=== PATIENT | male | born 1940 | race Caucasian/White ===

== ENCOUNTER → 2016-10-30 | Outpatient (CLI) | payer OTHER | LOC: BHFA 10:45 | PROVIDERS: ATTEND Internal Medicine Cardiovascular Disease | DX: I50.33 Acute on chronic diastolic (congestive) heart failure (principal); I48.91 Unspecified atrial fibrillation; R06.02 Shortness of breath ==

== ENCOUNTER 2016-12-20 09:50 | Day surgery (SDC) | payer OTHER ==
[2016-12-20] MEDS ORDERED: fentaNYL 100 MCG/2 ML INJ IVP ONE (09:55)
[2016-12-20] MEDS ORDERED: NS 500 ML IV ONE (09:55)
[2016-12-20] MEDS ORDERED: MIDAZOLAM 2 MG/2 ML VIAL IVP ONE (09:55)
[2016-12-20] MEDS ORDERED: PROPOFOL 200 MG/20 ML VIAL IVP ONE (09:55)
[2016-12-20] MEDS ORDERED: BENZOCAINE UNIT DOSE SPRAY HURRICAINE MM ONE (09:55)
--- NOTE | 2016-12-20 10:19 | CPEKG ---
Heart Rate: 122 RR Interval: 492 QRSD Interval: 84 QT Interval: 332 QTC Interval: 473 QRS [place]: 90 T Wave [place]: 40 EKG Severity - ABNORMAL ECG - EKG Impression: ATRIAL FIBRILLATION/FLUTTER-- New since March 18, 2015 EKG Impression: BORDERLINE RIGHT AXIS DEVIATION Electronically Signed By: Len Granados 20-Dec-2016 10:51:49
[2016-12-20 10:38] LABS: INR 1.19 (0.83-1.16); PROTIME(PATIENT) 15.1 SEC (12.0-15.0)
[2016-12-20 10:39] LABS: APTT 28.2 SEC (23.0-38.0)
[2016-12-20 10:45] LABS: ANION GAP 13 mEq/L (8-16); CALCIUM 8.6 mg/dL (8.5-10.4); CARBON DIOXIDE 25 mEq/l (22-31); CHLORIDE 100 mEq/L (97-110); CREATININE 1.2 mg/dL (0.7-1.3); GLOMERULAR FILTRATION RATE 59; GLUCOSE 136 mg/dL (70-100); POTASSIUM 4.6 mEq/L (3.5-5.2); SODIUM 138 mEq/L (134-144)
[2016-12-20] MEDS ORDERED: ATROPINE SULFATE 1 MG/10 ML SYR ONE (10:58)
[2016-12-20] MEDS ORDERED: PROPOFOL 200 MG/20 ML VIAL ONE (11:15)
[2016-12-20] MEDS ORDERED: SUCCINYLCHOLINE CHLORIDE*ANESTHESIA ONLY*200 MG/10 ML SYR IVP ONE (11:16)
[2016-12-20] MEDS ORDERED: LIDOCAINE 1% 5 ML SDV ONE (11:16)
--- NOTE | 2016-12-20 11:51 | CPEKG ---
Heart Rate: 89 RR Interval: 674 P-R Interval: 148 QRSD Interval: 84 QT Interval: 372 QTC Interval: 453 P [place]: -28 QRS [place]: 85 T Wave [place]: 37 EKG Severity - OTHERWISE NORMAL ECG - EKG Impression: SINUS RHYTHM EKG Impression: PACs EKG Impression: Sinus rhythm restored since December 20, 2016, 10:17 Electronically Signed By: Len Granados 20-Dec-2016 17:10:38
--- NOTE | 2016-12-20 16:09 | ECHO ---
[id number] + + [address] : : [facility] [address] : : [phone] + + Transesophageal Echocardiographic Report + ----+ :Name: MELLISSA BURNHAM HStudy Date: 12/20/2016 11:18 AM : : Hospital Admission Number: [id number] Location: C: :: 1940 Gender: Male : :Age: 76 yrs Race: WH : :Reason For Study: Eval LV Fx : :History: Pre Cardioversion : + ----+ Left Ventricle The left ventricular ejection fraction is normal. LVEF 60-65%. Right Ventricle The right ventricle is normal in size and function. Atria No left atrial mass or thrombus visualized. No thrombus is detected in the left atrial appendage. Mitral Valve The mitral valve is normal in structure and function. There is no mitral valve stenosis. There is trace mitral regurgitation. Tricuspid Valve The tricuspid valve is normal in structure and function. There is trace tricuspid regurgitation. Aortic Valve The aortic valve is normal in structure and function. The aortic valve is trileaflet. There is no aortic stenosis. There is no aortic insufficiency. Pulmonic Valve The pulmonic valve is normal in structure and function. There is no pulmonic valvular regurgitation. Vessels The aortic root is normal size. Pericardium There is no pericardial effusion. Conclusion 1)Normal LV size and systolic function with LVEF of 60-65% and normal wall motions. 2)Mild left atrial enlargement. 3)No clot or thrombus seen in any of four cardiac chambers or left atrial appendage. PW doppler in LIZET 50cm/sec. 4)Trivial to mild MR without MVP. 5)Trivial TR and PI 6)Negative IV bubble study for PFO or ASD. 7)Normal size ascending thoracic aorta (2.4cm) without dissection flap. Mild atheroma in aorta. Final Reading Physician: Srinath Robertson electronically signed on 12/20/2016 04:07 PM Ordering Physician: Srinath Robertson Performed By: Srinath Robertson
--- NOTE | 2016-12-20 22:10 | CPR ---
[f rep st] NONINVASIVE CARDIAC PROCEDURE REPORT DATE OF PROCEDURE: 12/20/2016 INDICATIONS: Atrial fibrillation with rapid ventricular response and acute on chronic diastolic hea rt failure and shortness of breath. PROCEDURE PERFORMED: Electrical cardioversion immediately after transesophageal echocardiogram. CONSENT: Signed. Risks, benefits, and alternatives discussed with patient and his . They wish ed to proceed. MEDICATIONS USED DURING PROCEDURE: Propofol 200 mg IV and IV lidocaine per Anesthesia with continuo us pulse oximetry and hemodynamic monitoring. TECHNICAL DIFFICULTIES: None. DESCRIPTION OF PROCEDURE: Immediately beforehand, a transesophageal echo demonstrated normal LV fun ction with no clots in the heart. He was initially in atrial fibrillation with a ventricular rate o f 115 beats per minute and a blood pressure of 120/70. With adequate sedation and biphasic AP pads, he received a single 250 joule shock, which converted him to sinus rhythm at 85 beats per minute wi th a post-cardioversion blood pressure of 104/76. He awoke from sedation with no new neurological d eficits. COMPLICATIONS: None. FINAL IMPRESSIONS: Successful cardioversion of atrial fibrillation to sinus rhythm with single 250 joule synchronized shock. /[id number]/MODL
== END 2016-12-20 13:31 | disposition home or self-care (01) ==
LOC: FCATH 09:50
PROVIDERS: ATTEND Internal Medicine Cardiovascular Disease
PROC: 5A2204Z Restoration of Cardiac Rhythm, Single (ICD-10-PCS; principal; 2016-12-20)
PROC: B246ZZ4 Ultrasonography of Right and Left Heart, Transesophageal (ICD-10-PCS; principal; 2016-12-20)
DX: I48.91 Unspecified atrial fibrillation (principal); I50.33 Acute on chronic diastolic (congestive) heart failure
CPT/HCPCS: J0330; J0461; J2704

== ENCOUNTER → 2016-12-21 | Outpatient (CLI) | payer OTHER | LOC: BHFA 10:45 | PROVIDERS: ATTEND Internal Medicine Cardiovascular Disease | DX: I50.32 Chronic diastolic (congestive) heart failure (principal); R00.2 Palpitations; I48.91 Unspecified atrial fibrillation ==

== ENCOUNTER → 2017-01-12 | Outpatient (CLI) | payer OTHER | LOC: BHFA 13:45 | PROVIDERS: ATTEND Internal Medicine Cardiovascular Disease | DX: I48.91 Unspecified atrial fibrillation (principal); I50.32 Chronic diastolic (congestive) heart failure; R53.83 Other fatigue; R06.02 Shortness of breath ==

== ENCOUNTER 2017-03-31 09:03 | Inpatient (IN) | payer OTHER ==
--- NOTE | 2017-03-31 09:12 | CPEKG ---
Heart Rate: 171 RR Interval: 351 QRSD Interval: 82 QT Interval: 300 QTC Interval: 506 QRS [place]: 96 T Wave [place]: 31 EKG Severity - ABNORMAL ECG - EKG Impression: ATRIAL FIBRILLATION WITH RAPID V-RATE-- New since December 20, 2016 EKG Impression: RIGHT AXIS DEVIATION EKG Impression: ST DEPRESSION, PROBABLY RATE RELATED Electronically Signed By: Len Granados 06-Apr-2017 10:58:13
[2017-03-31] MEDS ORDERED: NS 1,000 ML IV ONE ×2 (09:21→10:21)
[2017-03-31 09:25] LABS: ABSOLUTE NRBC COUNT 0.03 10^3/uL (0-0.01); ADD DIFF? YES; ADD MORPH? YES; ADD SCAN? NO; ATYPICAL LYMPHOCYTE FLAG 0 (0-99); FRAGMENT RBC FLAG 0 (0-99); HEMATOCRIT 38.1 % (40.0-51.0); LEFT SHIFT FLG 30 (0-99); LIPEMIA HEMOLYSIS FLAG 90 (0-99); MEAN CELL HEMOGLOBIN 46.2 pg (27.9-34.1); MEAN CELL HEMOGLOBIN CONCENTR. 36.7 g/dL (32.4-36.7); MEAN PLATELET VOLUME 9.8 fL (8.7-11.7); NRBC-AUTO% 0.2 % (0.0-0.2); PLATELET CLUMPS FLAG 10 (0-99); PLATELET COUNT 116 10^3/uL (150-400); RED BLOOD CELL COUNT 3.03 10^6/uL (4.40-6.38)
[2017-03-31 09:26] LABS: MEAN CELL VOLUME 125.7 fL (81.5-99.8)
[2017-03-31] MEDS ORDERED: MEROPENEM 1 GM in NS 100 ML IV ONE (09:28)
[2017-03-31] MEDS ORDERED: VANCOMYCIN 1 GM in NS 250 ML IV ONE (09:28)
[2017-03-31] MEDS ORDERED: KETAMINE 100 MG/10 ML SYR ONE ×2 (09:29→09:31)
[2017-03-31] MEDS ORDERED: methylPREDNISolone SOD SUCC 125 MG/2 ML VIAL ONE (09:34)
[2017-03-31] MEDS ORDERED: methylPREDNISolone SOD SUCC 125 MG/2 ML VIAL IVP ONE (09:34)
[2017-03-31 09:41] LABS: ALBUMIN 4.3 g/dL (3.5-5.0); BILIRUBIN,TOTAL 1.7 mg/dL (0.1-1.4); BILIRUBIN-CONJUGATED 0.7 mg/dL (0.0-0.5); CALCIUM 10.1 mg/dL (8.5-10.4); CREATININE 2.7 mg/dL (0.7-1.3); POTASSIUM 3.5 mEq/L (3.5-5.2); TOTAL PROTEIN 7.2 g/dL (6.3-8.2)
[2017-03-31 09:51] LABS: TROPONIN I 0.022 ng/mL (0.000-0.034)
[2017-03-31 09:55] LABS: MACROCYTES 2+; MICROCYTES 1+; PLATELET ESTIMATE DECREASED (ADEQ); POLYCHROMASIA 1+
[2017-03-31 09:56] LABS: GIANT PLATELETS PRESENT; LARGE PLATELETS PRESENT; TOXIC VACUOLIZATION PRESENT
[2017-03-31 10:06] LABS: INR 1.28 (0.83-1.16); PROTIME(PATIENT) 15.7 SEC (12.0-15.0)
[2017-03-31 10:07] LABS: APTT 33.7 SEC (23.0-38.0)
[2017-03-31] MEDS ORDERED: NOREPINEPHRINE/NS 4 MG/500 ML BAG IV ONE (10:17)
[2017-03-31] MEDS ORDERED: ERTAPENEM 1 GM VIAL ONE (10:37)
[2017-03-31] MEDS ORDERED: CODE BLUE RESUSCITATION 1 EA MISC ONE (11:41)
[2017-03-31] MEDS ORDERED: ROCURONIUM 100 MG/10 ML VIAL IVP ONE (11:41)
[2017-03-31] MEDS ORDERED: PROPOFOL/EMULSION 1,000 MG/100 ML BOTTLE IV ONE (11:48)
[2017-03-31] MEDS ORDERED: fentanYL/NACL/100 ML BAG IV ONE (11:49)
[2017-03-31] MEDS ORDERED: ETOMIDATE 40 MG/20 ML INJ IVP ONE (11:51)
[2017-03-31] MEDS ORDERED: ERTAPENEM 1 GM in NS 100 ML IV ONE (12:11)
--- NOTE | 2017-03-31 12:12 | EDPHY ---
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 Patient's notes that he has been taking increased diuretics and last 24 hours he has been complaining of feeling thirsty. Patient's notes that he had a fever when he woke at 3:00 a.m. this morning. He also had a fever 2 days ago was started on increased dose of prednisone by his specialist physician because of a concern of a flare of his vasculitis. Patient himself is unable to provide any specific history other than he feels weak. He complains of some shortness of breath but denies any chest pain. REVIEW OF SYSTEMS: Limited due to the critical nature of the patient's presentation Source: Family - Personal History Tetanus Vaccine Date: 2009 - Medical/Surgical History Hx Asthma: No Hx Chronic Respiratory Disease: No Hx Diabetes: No Hx Cardiac Disease: No Hx Renal Disease: No Hx Cirrhosis: No Hx Alcoholism: No Hx HIV/AIDS: No Hx Splenectomy or Spleen Trauma: No Other PMH: MDS Cancer, Moes surgery on left ear 2 weeks ago,cholecystectomy, sternal fx, neck pain, - Social History Smoking Status: Former smoker - Physical Exam Exam: General Appearance: Somnolent, pale, opens eyes to voice and answer some questions, ill appearing, tachypneic. Eyes: Pupils equal and round no pallor or injection. ENT, Mouth: Mucous membranes dry Respiratory: Increased effort, lungs are clear to auscultation. No wheezes, rales or rhonchi. Cardiovascular: Tachy, irregular, no murmurs, gallops or rubs appreciated Gastrointestinal: Abdomen is soft and mildly distended, no masses Neurological: Awake, answers questions appropriately, moves all extremities Skin: Warm and dry, no rashes. Musculoskeletal: No deformities or tenderness. Extremitie:s full range of motion, no edema, weak peripheral pulses Constitutional: Initial Vital Signs Temperature (C) 36.9 C 03/31/17 09:11 Heart Rate 176 H 10/21/17 09:11 Respiratory Rate 30 H 03/31/17 09:11 Blood Pressure 84/50 L 03/31/17 09:11 O2 Sat (%) 94 03/31/17 09:11 O2 Delivery Mode Ventilator O2 (L/minute) 60 Allergies/Adverse Reactions: lisinopril [From Zestril] Allergy (Severe, Verified 03/31/17 09:06) Swelling/neck,face,throat codeine Allergy (Verified 03/31/17 09:06) neck swelling minocycline Allergy (Verified 03/31/17 09:06) Home Medications: Medication Instructions Recorded Potassium Cl [Klor-Con 20 meq (*)] 20 meq PO BID 01/28/12 Terazosin HCl [Hytrin 5 MG (*)] 10 mg PO HS 01/28/12 Acetaminophen [Tylenol ES 500 mg 1,000 mg PO Q6 PRN 12/12/14 (*)] Levothyroxine [Synthroid 125 mcg 125 mcg PO HS 12/12/14 (*)] Ibuprofen [Motrin (*)] 800 mg PO Q8 PRN 12/28/14 Omeprazole Magnesium [Prilosec Otc] 20 mg PO DAILY 12/28/14 Aspirin [Aspirin 81mg (OTC)] 81 mg PO DAILY #30 tab 01/04/15 Eliquis 12/19/16 Metoprolol Tartrate 12/19/16 Prednisone 12/19/16 Spironolactone 12/19/16 Torsemide 12/19/16 Medical Decision Making - Diagnostics EKG Interpretation: Rapid AFib at a rate in the 170s without evidence of acute ischemia Imaging Results: Imaging Impressions Chest X-Ray 03/31/17 09:32 Impression: 1. Poor inspiratory phase without definite pneumonia or pulmonary edema. 2. Mediport catheter without pneumothorax. 3. Consider chest two views when the patient's medical condition permits. Imaging: I viewed and interpreted images myself Procedures: Procedure: Electrical cardioversion. The patient was electrically cardioverted for rapid atrial fibrillation with hypotension and confusion. The patient was on a continuous monitoring manager, with airway equipment at the bedside. The patient was sedated with IV ketamine. The patient was on continuous pulse oximetry. The cardioversion was attempted with 120 joules biphasic current. The cardioversion was not successful successful. Second attempt was made at 200 joules and the patient was converted to sinus tachycardia. The patient tolerated the procedure well with no complications. The procedure was performed by myself. Procedure 2.: Endotracheal intubation Indication for the procedure was hypoventilation. The patient was preoxygenated with 100% oxygen by face mask. The patient was sedated with etomidate 20 mg and paralyzed with rocuronium 100 mg. The patient was orally endotracheally intubated under direct visualization with a 8 ETT using the glide scope. Tracheal intubation was confirmed with misting on the tube; breath sounds were auscultated equally bilaterally; appropriate color change with [employer] End Tidal CO2 detector, capnography waveform is appropriate, oxygen saturation after procedure is 100%. The procedure was performed by myself. ED Course/Re-evaluation: 76-year-old man presents by family with weakness, hypotension and rapid atrial fibrillation with recent fever and heavy diuretic use. Patient was cardioverted after sedation foot with ketamine for unstable atrial fibrillation with return of sinus tachycardia on repeat ECG. I felt that atrial fibrillation was likely secondary to an underlying process such as dehydration and/or infection. Blood cultures x2 were obtained, lactate was sent off the patient was started on broad-spectrum IV antibiotics and stress dose steroids because of his chronic prednisone use. Labs are notable for an elevated lactate, elevated white blood cell count, elevated BUN and creatinine consistent with significant dehydration and volume depletion and low-sodium but normal potassium. Chest x-ray showed no evidence of pneumonia. We are unable to obtain urine from the patient due to multiple other critical needs. I discussed the case with Dr. Renard berg at [facility] who accepts the patient in transfer to intensive care unit. Because the patient's blood pressure remained somewhat unstable I discussed the case with Dr. Oakes in the emergency department and the plan was to transfer the patient there. The patient's blood pressure improved from the 60s to 80s but he remained hypotensive. After a 2 L normal saline bolus the patient had slight improvement in his blood pressure. However the patient was on end-tidal CO2 monitor and he had recurrent episodes of hypoventilation and drop in his end- tidal CO2 to less than 10 and his blood pressure dropped again into the 60s. Patient was therefore intubated for hypoventilation and airway protection and anticipation of deterioration of his condition. After intubation and 2 L of fluid the patient's blood pressure remained low when he was briefly started on norepinephrine drip through a peripheral line. Critical care transfer was arranged. While preparing for transfer the patient had episode of supraventricular tachycardia but his blood pressure had improved into the 113-118 range after 2.5 L of normal saline. Because of the SVT on the monitor we discontinued the norepinephrine and the patient converted back to sinus tachycardia and his blood pressure remained improved and stable. I discussed the patient's critical condition as well as his wishes regarding resuscitation with his family. The family did have a living will which stated the patient wanted everything done unless it was clear that he had a terminal condition or would be remained in a vegetative state. Given that the underlying cause of his deterioration today not completely clear and whether not this is reversible we went ahead and intubated. Patient was then transferred by critical care transfer to [facility] for ongoing care. Total critical care time was 95 minutes exclusive of procedures. - Data Points Laboratory Results: Laboratory Results 03/31/17 09:10 03/31/17 09:10 03/31/17 03/31/17 03/31/17 10:45 09:10 09:10 WBC RBC Hgb Hct MCV MCH MCHC RDW Plt Count MPV Neut % (Auto) Lymph % (Auto) [place] % (Auto) Eos % (Auto) Baso % (Auto) Nucleat RBC Rel Count Absolute Neuts (auto) Absolute Lymphs (auto) Absolute Monos (auto) Absolute Eos (auto) Absolute Basos (auto) Absolute Nucleated RBC Immature Gran % Seg Neutrophils % Band Neutrophils % Lymphocytes % Monocytes % Metamyelocytes % Immature Gran # Absolute Seg Neuts Absolute Band Neuts Absolute Lymphocytes Absolute Monocytes Absolute Metamyelocyte Toxic Vacuolation Platelet Estimate Large Platelets Giant Platelets Polychromasia Microcytic Cells Oval Macrocytes Smear Review By PT 15.7 SEC H SEC (12.0-15.0) INR 1.28 H (0.83-1.16) APTT 33.7 SEC SEC (23.0-38.0) VBG Lactic Acid 3.0 mmol/L H D mmol/L (0.7-2.1) Sodium 129 mEq/L L mEq/L (134-144) Potassium 3.5 mEq/L mEq/L (3.5-5.2) Chloride 82 mEq/L L mEq/L (97-110) Carbon Dioxide 28 mEq/l mEq/l (22-31) Anion Gap 19 mEq/L H mEq/L (8-16) BUN 65 mg/dL H mg/dL (7-23) Creatinine 2.7 mg/dL H mg/dL (0.7-1.3) Estimated GFR 23 Glucose 135 mg/dL H mg/dL (70-100) Calcium 10.1 mg/dL mg/dL (8.5-10.4) Total Bilirubin 1.7 mg/dL H mg/dL (0.1-1.4) Conjugated Bilirubin 0.7 mg/dL H mg/dL (0.0-0.5) Unconjugated Bilirubin 1.0 mg/dL mg/dL (0.0-1.1) AST 29 IU/L IU/L (17-59) ALT 45 IU/L IU/L (21-72) Alkaline Phosphatase 66 IU/L IU/L (38-126) Troponin I 0.022 ng/mL ng/mL (0.000-0.034) Total Protein 7.2 g/dL g/dL (6.3-8.2) Albumin 4.3 g/dL g/dL (3.5-5.0) 03/31/17 03/31/17 09:10 09:10 WBC 15.75 10^3/uL H 10^3/uL (3.80-9.50) RBC 3.03 10^6/uL L 10^6/uL (4.40-6.38) Hgb 14.0 g/dL g/dL (13.7-17.5) Hct 38.1 % L % (40.0-51.0) MCV 125.7 fL H fL (81.5-99.8) MCH 46.2 pg H pg (27.9-34.1) MCHC 36.7 g/dL g/dL (32.4-36.7) RDW 15.0 % % (11.5-15.2) Plt Count 116 10^3/uL L 10^3/uL (150-400) MPV 9.8 fL fL (8.7-11.7) Neut % (Auto) Not Reported Lymph % (Auto) Not Reported [place] % (Auto) Not Reported Eos % (Auto) Not Reported Baso % (Auto) Not Reported Nucleat RBC Rel Count 0.2 % % (0.0-0.2) Absolute Neuts (auto) Not Reported Absolute Lymphs (auto) Not Reported Absolute Monos (auto) Not Reported Absolute Eos (auto) Not Reported Absolute Basos (auto) Not Reported Absolute Nucleated RBC 0.03 10^3/uL H 10^3/uL (0-0.01) Immature Gran % Not Reported Seg Neutrophils % 22 % % Band Neutrophils % 65 % % Lymphocytes % 7 % % Monocytes % 3 % % Metamyelocytes % 3 % % Immature Gran # Not Reported Absolute Seg Neuts 3.5 K/MM3 K/MM3 (1.8-7) Absolute Band Neuts 10.2 K/MM3 H K/MM3 (0-0.7) Absolute Lymphocytes 1.1 K/mm3 K/mm3 (1.0-4.8) Absolute Monocytes 0.5 K/mm3 K/mm3 (0-0.8) Absolute Metamyelocyte 0.5 K/mm3 H K/mm3 (0-0) Toxic Vacuolation PRESENT H Platelet Estimate DECREASED L (ADEQ) Large Platelets PRESENT H Giant Platelets PRESENT H Polychromasia 1+ H Microcytic Cells 1+ H Oval Macrocytes 2+ H Smear Review By Pending PT INR APTT VBG Lactic Acid 5.7 mmol/L H mmol/L (0.7-2.1) Sodium Potassium Chloride Carbon Dioxide Anion Gap BUN Creatinine Estimated GFR Glucose Calcium Total Bilirubin Conjugated Bilirubin Unconjugated Bilirubin AST ALT Alkaline Phosphatase Troponin I Total Protein Albumin Medications Given: Discontinued Medications Etomidate (Etomidate) 20 mg IVP ONCE ONE Stop: 03/31/17 11:52 Last Admin: 03/31/17 10:27 Dose: 20 mg Sodium Chloride (Ns) 1,000 mls @ 0 mls/hr IV ONCE ONE; Wide Open PRN Reason: Protocol Stop: 03/31/17 09:22 Last Admin: 03/31/17 09:50 Dose: 1,000 mls Meropenem 1 gm/ Sodium (Chloride) 120 mls @ 120 mls/hr IV EDNOW ONE PRN Reason: Protocol Stop: 03/31/17 10:27 Last Admin: 03/31/17 10:15 Dose: Not Given Vancomycin HCl 1 gm/ Sodium (Chloride) 250 mls @ 250 mls/hr IV EDNOW ONE PRN Reason: Protocol Stop: 03/31/17 10:27 Last Admin: 10/21/17 09:53 Dose: 250 mls Sodium Chloride (Ns) 1,000 mls @ 3,000 mls/hr IV ONCE ONE Stop: 03/31/17 10:40 Last Admin: 03/31/17 09:50 Dose: 1,000 mls Methylprednisolone Sodium Succinate (Solu-Medrol) 125 mg IVP EDNOW ONE Stop: 03/31/17 09:35 Last Admin: 03/31/17 09:35 Dose: 125 mg Miscellaneous Medication (Code Blue Resuscitation) 1 ea MISC EDNOW ONE Stop: 03/31/17 11:42 Last Admin: 03/31/17 12:10 Dose: Not Given Rocuronium [place] (Zemuron) 100 mg IVP EDNOW ONE Stop: 03/31/17 11:42 Last Admin: 03/31/17 10:27 Dose: 100 mg Departure - Departure Referrals: Len Granados MD [Primary Care Provider] - As per Instructions
[2017-03-31] MEDS: fentaNYL/NACL 100 ML IV SCH ×2 (12:15→21:38)
[2017-03-31] MEDS ORDERED: KETAMINE 100 MG/10 ML SYR IVP ONE ×2 (12:15→12:23)
[2017-03-31] MEDS: PROPOFOL/EMULSION 100 ML IV SCH ×3 (12:15→21:38)
[2017-03-31] MEDS ORDERED: NS 1,000 ML IV SCH ×2 (12:30→16:00)
[2017-03-31] MEDS ORDERED: ONDANSETRON 4 MG/2 ML VIAL IVP PRN (12:38)
[2017-03-31 12:51] LABS: ABSOLUTE NRBC COUNT 0.02 10^3/uL (0-0.01); ADD DIFF? YES; ADD MORPH? YES; ADD SCAN? NO; ATYPICAL LYMPHOCYTE FLAG 0 (0-99); FRAGMENT RBC FLAG 0 (0-99); HEMOGLOBIN 10.4 g/dL (13.7-17.5); LEFT SHIFT FLG 80 (0-99); LIPEMIA HEMOLYSIS FLAG 90 (0-99); MEAN CELL HEMOGLOBIN 47.5 pg (27.9-34.1); MEAN CELL HEMOGLOBIN CONCENTR. 35.9 g/dL (32.4-36.7); MEAN PLATELET VOLUME 9.8 fL (8.7-11.7); NRBC-AUTO% 0.1 % (0.0-0.2); PLATELET CLUMPS FLAG 0 (0-99); PLATELET COUNT 81 10^3/uL (150-400); RED BLOOD CELL COUNT 2.19 10^6/uL (4.40-6.38); RED CELL DISTRIBUTION WIDTH 15.3 % (11.5-15.2)
[2017-03-31] MEDS ORDERED: DIGOXIN 100 MCG/ML AMP *PEDIATRIC IVP ONE (12:52)
[2017-03-31] MEDS ORDERED: AMIODARONE HCL 200 ML IV ONE (12:59)
[2017-03-31] MEDS ORDERED: AMIODARONE HCL 100 ML IV ONE (12:59)
[2017-03-31] MEDS ORDERED: DIGOXIN 500 MCG/2 ML AMP IVP ONE (13:00)
[2017-03-31 13:01] LABS: INR 1.5 (0.83-1.16); PROTIME(PATIENT) 18.1 SEC (12.0-15.0)
[2017-03-31 13:02] LABS: APTT 41.6 SEC (23.0-38.0)
[2017-03-31 13:09] LABS: MEAN CELL VOLUME 132.4 fL (81.5-99.8)
[2017-03-31 13:10] LABS: ALANINE AMINOTRANSFERASE 38 IU/L (21-72); ALBUMIN 2.7 g/dL (3.5-5.0); ALKALINE PHOSPHATASE 43 IU/L (38-126); ANION GAP 13 mEq/L (8-16); ASPARTATE AMINOTRANSFERASE 28 IU/L (17-59); BILIRUBIN,TOTAL 1.2 mg/dL (0.1-1.4); BILIRUBIN-CONJUGATED 0.6 mg/dL (0.0-0.5); BILIRUBIN-UNCONJUGATED 0.6 mg/dL (0.0-1.1); CALCIUM 7.3 mg/dL (8.5-10.4); CARBON DIOXIDE 23 mEq/l (22-31); CHLORIDE 96 mEq/L (97-110); CREATININE 2.3 mg/dL (0.7-1.3); GLOMERULAR FILTRATION RATE 28; GLUCOSE 159 mg/dL (70-100); SODIUM 132 mEq/L (134-144); TOTAL PROTEIN 4.9 g/dL (6.3-8.2)
--- NOTE | 2017-03-31 13:32 | GCON ---
[f rep st] CONSULTATION DATE OF CONSULTATION: 03/31/2017 REASON FOR CONSULTATION: Opinion regarding acute kidney injury in a patient with known stage 3 chron ic kidney disease. HISTORY OF PRESENT ILLNESS: The patient is a 76-year-old gentleman with multiple medical problems, i ncluding myelodysplastic syndrome (CML), as well as chronic vasculitis for which he is on prednisone 10 mg daily. He also has diastolic congestive heart failure and paroxysmal atrial fibrillation. The patient was in his usual state of health on Sunday, however, on began having some fevers . This is a symptom of his vasculitis, and he doubled his prednisone from 10 mg to 20 mg daily, and cut back on his prednisone to 15 mg yesterday. Today, was rolling around, and not making much sense at home and was taken to the emergency department, where he was noted to be in rapid atrial fibrillat ion and acute kidney injury. The patient was intubated, sedated, given Solu-Medrol 125 mg, started o n intravenous pressors, given a gram of vancomycin, 2 L of IV fluids, and also given Invanz 1 gram x1 . The patient was life flighted to [facility] for further evaluation and management. The patient is intubated and sedated, and is not able to give a history, the history comes from his . Apparently, over the course of the past several weeks, the patient has had increasing abdomin al girth. His Aldactone and furosemide were doubled, and he was started on metolazone as well. He h ad 1 dose on Sunday and another dose today. PAST MEDICAL HISTORY: 1. Stage 3 chronic kidney disease with a baseline creatinine between 1.2 and 1.3. 2. Myelodysplastic syndrome (CML). 3. Vasculitis, follows with Rheumatology. 4. Hypothyroidism. 5. Paroxysmal atrial fibrillation. 6. History of BPH. 7. Depression. 8. Hyperlipidemia. 9. History of hypertension. 10. History of a fractured sternum. 11. Gastroesophageal reflux disease. 12. Diastolic congestive heart failure. 13. History of knee surgery. ALLERGIES: He gets angioedema with lisinopril. He is also allergic to minocycline and codeine. CURRENT MEDICATIONS: Include Invanz 1 gram x1. He did receive Solu-Medrol 125 mg x1, as well as pro pofol, vancomycin 1 g IV x1, and he has had 3 L of normal saline intravenously. FAMILY HISTORY: Positive for diabetes. Negative for renal failure. SOCIAL HISTORY: He is . His son and are at the bedside. He is a former tobacco user. Does not use IV recreational drugs or alcohol. REVIEW OF SYSTEMS: Is not obtainable from the patient. PHYSICAL EXAMINATION: VITAL SIGNS: Systolic blood pressures ranging from 60-90/50s, when he is in a trial fibrillation, when his rate is slowed or he is in sinus rhythm his blood pressures tend to be i n the 140 range, when he is in sinus rhythm (he was converted at the emergency department). He did b egin to make some urine. Pulse currently in the 120s to 150s, respirations 15, temperature 36.9. GE NERAL: He is sedated on the ventilator. HEART: Tachycardic, irregular. No rub. CHEST: Has an In fuse-A-Port in his right chest. LUNGS: Coarse breath sounds bilaterally. No rhonchi or wheezes. A BDOMEN: Obese. Bowel sounds are quiet, nontender, mildly distended. EXTREMITIES: No cyanosis, clu bbing, or edema. NEUROLOGIC: No asterixis. SKIN: He has changes of arterial and venous insufficie ncy in his lower extremities bilaterally. LYMPH: No palpable lymphadenopathy. MUSCULOSKELETAL: No effusions. LABORATORY: Serum sodium is 129, potassium 3.5, chloride 82, CO2 28, BUN 65, creatinine 2.7, glucose 135, AST 29, albumin 4.3, troponin 0.022. Lactic acid of 3. WBC 15.8, hemoglobin 14, hematocrit 38 , platelet count 116,000. On 03/26/2017, his serum creatinine is 1.3. In December of 2016, his serum cr eatinine was 1.2. Transesophageal echocardiogram done 01/04/2017, showed his ejection fraction to be 60% to 65%, with a normal right ventricle. Trace mitral regurgitation. Aortic valve, pulmonic valve, and tricuspid va lve were essentially normal. He was converted from atrial fibrillation to normal sinus rhythm with a single shock of 250 joules on 12/20/2016, his DONALD was followup after his cardioversion. IMPRESSION: 1. Acute kidney injury, likely due to hypotension. 2. Hypotension, likely due to cardiovascular instability, including rapid atrial fibrillation. 3. Rapid atrial fibrillation with pulses in the 150s range. 4. Chronic kidney disease stage 3, with a baseline creatinine between 1.2 and 1.3. 5. History of vasculitis. 6. History of increasing abdominal girth with recent doubling of his Aldactone and furosemide, with the addition of metolazone. 7. Hyponatremia. I suspect this is due to his metolazone therapy. RECOMMENDATIONS: 1. There are no urgent or emergent dialysis needs at this time. The patient is on Eliquis for his h istory of atrial fibrillation. He also has a right-sided [id number] that has been in for a couple of years. I have counseled the patient's family regarding the possible need for renal replacement t herapy. I have counseled them regarding renal replacement therapy options, including hemodialysis, a s well as continuous renal replacement therapy. I have explained to them the difference and all ques tions were answered to their satisfaction. Were he to require renal replacement therapy, they would be willing to give that a try. 2. I think we need to get Cardiology involved, to see if we can get him out of atrial fibrillation, as his hemodynamics are much more unstable when he is in atrial fibrillation, then when he is in sinu s rhythm. 3. When he is in sinus rhythm, his blood pressure is actually quite good and he makes some urine, we may be able to avoid renal replacement therapy. Thank you for allowing me to participate in the care of your patient. If there is any questions, ple ase do not hesitate to contact us. We will be following along with you. /[id number]/MODL
[2017-03-31 13:51] LABS: ALBUMIN 2.5 g/dL (3.5-5.0); ANION GAP 15 mEq/L (8-16); CALCIUM 7.5 mg/dL (8.5-10.4); CARBON DIOXIDE 23 mEq/l (22-31); CHLORIDE 96 mEq/L (97-110); CREATININE 2.3 mg/dL (0.7-1.3); GLOMERULAR FILTRATION RATE 28; GLUCOSE 161 mg/dL (70-100); POTASSIUM 3.1 mEq/L (3.5-5.2); SODIUM 134 mEq/L (134-144)
[2017-03-31] MEDS ORDERED: ALBUMIN 5% 500 ML IV ONE (13:55)
[2017-03-31] MEDS ORDERED: VASOPRESSIN/DEXTROSE 250 ML IV SCH ×2 (14:00)
[2017-03-31] MEDS ORDERED: PROPOFOL/EMULSION 100 ML IV SCH (14:02)
[2017-03-31] MEDS ORDERED: fentaNYL/NACL 100 ML IV SCH (14:02)
[2017-03-31] MEDS ORDERED: fentaNYL 100 MCG/2 ML INJ IVP PRN (14:02)
[2017-03-31 14:06] LABS: PLATELET ESTIMATE DECREASED (ADEQ)
--- NOTE | 2017-03-31 14:22 | GCON ---
[f rep st] CONSULTATION CARDIOLOGY CONSULTATION DATE OF CONSULTATION: 03/31/2017 [employer]OVE SUPERINTENDENT: Diana Robertson MD ONCOLOGIST: Dennis Alfredo MD CHIEF COMPLAINT: Atrial fibrillation, hypotension. HISTORY OF PRESENT ILLNESS: We were asked by Dr. Lao to visit with the patient. The patient is a 76-year-old male with a history of heart failure with preserved ejection fraction, paroxysmal atrial fibrillation on Eliquis therapy, sleep apnea, vasculitis, and myelodysplastic syndrome. The history is from chart review and discussion with the family. As the patient is currently intubated and sedat ed. The patient was seen by Dr. Robertson in [facility] on March 22. At that time, the patient was complaining of dyspnea, increasing abdominal girth, and weight gain. Therefore, his torsemide w as increased to 100 mg daily, and his Aldactone was increased to 50 mg daily. On March 26, he hayward d blood work showing a BNP of 55, BUN 38, creatinine 1.3. He was then seen by Aliyah Cordova PA-C on 03/28 with little change in his dyspnea and no reported weight loss. Therefore, metolazone was adde d to his diuretic regimen, to be taken 3 times per week. Also, his steroids were recently increased by his instrument maintenance supervisor for vasculitis flare. The patient was brought to the emergency department by his this morning due to somnolence, fever , and tachycardia. He was found to be hypotensive to the 80s and in atrial fibrillation with ventric ular rates as high as 176 beats per minute. He was cardioverted to sinus tachycardia in the emergenc y department and intubated for airway protection. He was briefly on norepinephrine, but then this wa s discontinued. He was also found to be in acute renal failure with a creatinine of 2.7. He was giv en broad-spectrum antibiotics. He was transferred to [facility] ICU for further evalua tion and management. At the [facility] emergency department, he was also given stress dose steroids and broa d-spectrum antibiotics, and 4 L of fluid were given in the emergency department. Upon my evaluation, he is arousable, but intubated and cannot answer questions. REVIEW OF SYSTEMS: Currently unable, as the patient is intubated and sedated. PAST MEDICAL HISTORY: 1. Heart failure with preserved ejection fraction. 2. Paroxysmal atrial fibrillation. 3. Sleep apnea. 4. Obesity. 5. Dyslipidemia. 6. Vasculitis with cutaneous manifestations, followed by Dr. Patel. 7. Hypertension. 8. Myelodysplastic syndrome, followed by Dr. Alfredo. 9. BPH. 10. Depression. 11. GERD. 12. Hypothyroidism. 13. History of basal cell carcinoma. PAST SURGICAL HISTORY: Appendectomy, hernia repair, and knee surgery. OUTPATIENT MEDICATIONS: Prednisone, recently increased, Eliquis 5 mg twice daily, Synthroid 125 mcg daily, Ativan p.r.n., magnesium oxide, metolazone 2.5 mg Sunday, Sunday, and Sunday, metoprolol ta rtrate 25 mg twice daily, spironolactone 50 mg daily, torsemide 100 mg daily, aspirin 81 mg daily, an d Prilosec 20 mg daily. SOCIAL HISTORY: The patient is . He is a former tobacco user. FAMILY HISTORY: Not applicable to the current case. PHYSICAL EXAM: VITAL SIGNS: Blood pressure has ranged from 60/45 to 140/75, heart rate in the 140s, respiratory rate is 18, he is on 60% FiO2 on the ventilator. Rhythm is currently atrial fibrillatio n with rapid ventricular response. GENERAL: He is an obese, older male, intubated. CARDIOVASCULAR: Irregular regular rhythm without S3 or murmur. LUNGS: Rhonchi anteriorly and laterally. ABDOMEN: Soft and nontender without obvious hepatosplenomegaly. EXTREMITIES: Warm and well perfused. INTE GUMENT: His skin is tenting. EXTREMITIES: There is no edema. Intact distal pulses. LABORATORY DATA: White count 28.45, hematocrit 29, and platelets are 81. INR 1.5. Venous lactic ac id was 5.7. Sodium 132, potassium 3, chloride 96, bicarb 13, BUN 57, creatinine 2.3, glucose 159. L FTs are normal except for a slightly elevated conjugated bilirubin at 0.6, total protein 4.9. Tropon in is negative. TSH was last checked in 2014 and was normal. BNP is pending. Blood cultures are pe nding. EKG reviewed by me shows AFib with rapid ventricular response. No ischemic changes. Chest x-ray x2 reviewed by me pre and post intubation revealed left lower lobe opacity. Last nuclear stress test was in our office in 2011, which showed normal myocardial perfusion and no c ardiac ischemia. Last DONALD was in December of 2016 with normal left ventricular ejection fraction, no int racardiac thrombus, and 1+ mitral regurgitation. RV is normal size and systolic function. ASSESSMENT AND PLAN: A 76-year-old male with a history of heart failure with preserved ejection frac tion, sleep apnea, paroxysmal atrial fibrillation, vasculitis, myelodysplasia. He is now admitted to the ICU with shock that seems most consistent with hypovolemia. He has acute renal failure and rapi d atrial fibrillation. His atrial fibrillation is contributing to his hypotension. 1. Hypotension: As above, appears to be related to hypovolemia and atrial fibrillation. We have st arted amiodarone. If he does not convert to normal sinus rhythm in the next 30 minutes or so, we maxx l repeat cardioversion. Continue IV fluids. Hold diuretics. He is on broad-spectrum antibiotics, a s infection is on the differential, and he is immunocompromised due to his chronic steroid use. He h as been given stress dose steroids. 2. Atrial fibrillation: Attempt sabianism of sinus rhythm as detailed per #1. Continue Eliquis i n the absence of significant bleeding. 3. History of heart failure with preserved ejection fraction: He appears quite clinically dry. Jany ck BNP. We will continue IV fluids. 4. History of vasculitis: Followed by Dr. Patel. Recent increase in steroids. 5. Myelodysplastic syndrome: Followed by Dr. Alfredo. His white count is quite high today, possibl y due to steroids versus infection, or both. 6. Acute renal failure: Related to hypovolemia. Appreciate Dr. Liao' consult. Hopefully, this will improve with fluid resuscitation and sabianism of sinus rhythm. Thank you for this consult. We will follow with you. BILLING: Greater than 45 minutes was spent in chart review, direct patient contact, discussion with other physicians. /[id number]/MODL
[2017-03-31 14:35] LABS: MACROCYTES 1+; MICROCYTES 1+; POLYCHROMASIA 1+; SCHISTOCYTES 1+; TOXIC VACUOLIZATION PRESENT
[2017-03-31] MEDS ORDERED: ALTEPLASE 2 MG VIAL IVP PRN (14:50)
--- NOTE | 2017-03-31 15:08 | CPEKG ---
Heart Rate: 127 RR Interval: 472 QRSD Interval: 88 QT Interval: 332 QTC Interval: 483 QRS [place]: 89 T Wave [place]: 35 EKG Severity - ABNORMAL ECG - EKG Impression: ATRIAL FIBRILLATION EKG Impression: BORDERLINE RIGHT AXIS DEVIATION EKG Impression: LOW VOLTAGE THROUGHOUT EKG Impression: BORDERLINE PROLONGED QT INTERVAL Electronically Signed By: Minor Jimenez 31-Mar-2017 19:29:09
[2017-03-31] MEDS ORDERED: MIDAZOLAM 2 MG/2 ML VIAL ONE (15:37)
--- NOTE | 2017-03-31 15:41 | PDHPUP ---
History & Physical Update H&P update statement: This history and physical update is based on an assessment of the patient which was completed after admission or registration (within 24 hours), but prior to the surgery/procedure. H&P update: H&P reviewed & patient examined, no change in patient's condition since H&P completed
--- NOTE | 2017-03-31 15:48 | PDPROPOC ---
Sedation Plan of Care ASA Classification: ASA 3 Planned drugs: midazolam, other (propofol per ICU) Mallampati Reference Image: Patient passed 3-3-2 rule?: No (pt intubated. Sedation per ICU)
--- NOTE | 2017-03-31 16:00 | PDTEE1 ---
DONALD Cardioversion Procedure Procedure: electrical cardioversion Indications: atrial fibrillation Consent: signed and in chart Anticoagulation: eliquis Procedural Details: Pads were placed in anterior-posterior position. DONALD was not performed as he has been taking Eliquis without fail. Synchronized cardioversion attempt #2: 200J Results: normal sinus rhythm Conclusions: successful cardioversion Patient Problems: Problems Problem Status Onset Fever Acute Myelodysplastic syndrome Acute
--- NOTE | 2017-03-31 16:03 | GCON ---
[f rep st] CONSULTATION PULMONARY CRITICAL CARE CONSULTATION. DATE OF CONSULTATION: 03/31/2017 REASON FOR CONSULTATION: Intensive care unit evaluation and management of acute respiratory failure, hypotension, possible sepsis, cardiac arrhythmias, and acute renal failure. HISTORY: The patient is a 76-year-old gentleman with multiple medical problems. He presented to the emergency department at [facility] today in distress. This developed at home. He arrived at [facility] in rapid atrial fibrillation. He was intubated. He was hypotensive and was started on pressors. He was give n Invanz and vancomycin as well as Solu-Medrol. He was subsequently transferred to [facility] as a direct admission to the intensive care unit by helicopter. 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 On arrival in the intensive care unit he was intubated but responsive. He was started on fentanyl an d propofol. Levophed was continued and vasopressin eventually added. He was found to be fluid respo nsive by NICOM. He has been given approximately 4 L of fluid. Blood cultures were obtained at [facility] t his morning, another obtained here. From a cardiac standpoint he has had a normal echo recently. He does have a history of paroxysmal at rial fibrillation. He is followed at [facility]. He also has a history of vasculitis, with inter mittent fevers. He apparently was febrile at home earlier today prior to his presentation. He has o ther multiple medical problems, as outlined below. PAST MEDICAL HISTORY: Remarkable for CML/myelodysplastic disease, vasculitis, systemic hypertension, hyperlipidemia, depression, chronic renal insufficiency with creatinines of approximately 1.3, and g astroesophageal reflux disease. HOME MEDICATIONS: Ranitidine, Demadex, terazosin, metolazone, p.r.n. lorazepam, prednisone at 10 mg per day, spironolactone, metoprolol, levothyroxine, baby aspirin, and Eliquis. SOCIAL HISTORY: The patient is , with a very supportive family. He smoked cigarettes in the past, but quit a number of years ago. Significant alcohol is negative. FAMILY HISTORY: Unobtainable. REVIEW OF SYSTEMS: Unobtainable. PHYSICAL EXAMINATION: GENERAL: Reveals an elderly gentleman who is sedated, on the ventilator. He is in no acute distress. VITAL SIGNS: Blood pressure has been labile, between 60/45 and 140/75. He art rate currently is 112 with atrial fibrillation on the monitor. Respiratory rate is 20. He is ov erbreathing the ventilator. He is on 60% FiO2 with saturations of 96%. He is afebrile. HEENT: Rem arkable for an oroendotracheal tube and NG tube being in place. Pupils appear equal. NECK: Unremar kable for edema, cords, or tenderness. There is no obvious jugular venous distention; however, this is difficult to estimate. CHEST: Clear anteriorly. Breath sounds are diminished at the bases. The re are no rhonchi, no secretions. There are no wheezes, no rales or evidence of consolidation. HEAR T: Tachycardic and irregular consistent with atrial fibrillation. Heart tones are distant. . ABDO MEN: Soft and does not appear to be tender. Bowel sounds are present but diminished. GENITOURINARY : A Pickard catheter is in place. Urine output is present but is low. EXTREMITIES: Are unremarkable for edema. There are no obvious cords. NEUROLOGIC: Nonfocal. Cognition appears to be intact. DATABASE: Chest x-ray shows lines and tubes to be in acceptable position. There is a retrocardiac i nfiltrate and/or atelectasis with possible effusion at the left base. Arterial blood gas is pending. Current venous lactate is 2.9, down from 5.7 on admission. White blood cell count is 28,000, hemat ocrit 29, with a platelet count of 81,000. PT is 18 with an INR of 1.5. PTT is 41. Sodium is 134, potassium 3.1, CO2 23, with an anion gap of 15. BUN is 59 with a creatinine of 2.3. Glucose is 161, calcium 7.5, bilirubin. 1.2 with normal liver function studies. BNP is 651, albumin 2.5. TSH is no rmal. Urinalysis has not yet been obtained. ASSESSMENT: 1. Hypotension, possible sepsis. Source of infection is unclear; however, he meets all criteria for sepsis and is on the sepsis protocol. However, hypotension and his presentation, elevated lactate, etc. may all be secondary to atrial fibrillation and associated cardiac hypotension. He is being vandana ated with broad-spectrum antibiotics, including ertapenem and vancomycin. These will be continued. He is on pressors. Currently he is requiring both Levophed as well as vasopressin. He has been star zhen on amiodarone and has been given digoxin. 2. Acute respiratory failure. He was intubated at [facility] and is on the ventilator, currently appears s table. There are no infiltrates, no evidence of pneumonia or pulmonary edema. Appropriate ventilato ry support will be maintained. An arterial blood gas is pending at this time. 3. Atrial fibrillation, with a rapid ventricular response. He is on amiodarone and digoxin. He is being followed by Cardiology. Cardioversion is being considered. 4. Acute renal failure. This may all be related to recent aggressive outpatient diuresis. He is cl early volume depleted and is fluid responsive. He has received 3-4 L of intravenous fluids/crystallo id currently. 500 of albumin will be given. CVP will be monitored when a central line is placed. 5. History of vasculitis. Etiology unclear. Apparently associated with intermittent fevers. He is on chronic steroid therapy. He received Solu-Medrol at [facility]. He will be placed on stress steroid co verage for now. 6. History of myelodysplastic syndrome, hypertension, and other medical problems. Currently stable. These issues will be followed. PLAN AND RECOMMENDATIONS: The patient will be aggressively supported. Appropriate ventilatory suppo rt will be maintained. Arterial blood gases will be awaited. Chest x-ray will be followed. Antibio tics will be continued. Fluids will be continued per the sepsis protocol and guided by CVP. A PICC line will be requested as attempts at a central line have so far been unsuccessful. Pressors, Levoph ed and vasopressin, will be continued as needed and weaned when possible. Cardiology and Renal will continue to follow the patient. Cardioversion may be needed per Dr. Tang. Further plans and recommendations will be made based on his progress over the next 12-24 hours. /[id number]/MODL
[2017-03-31] MEDS ORDERED: POTASSIUM Cl (KCl) 50 ML IV ONE (16:06)
[2017-03-31] MEDS ORDERED: MIDAZOLAM 2 MG/2 ML VIAL IVP ONE (16:06)
--- NOTE | 2017-03-31 16:10 | CPEKG ---
Heart Rate: 78 RR Interval: 769 P-R Interval: 180 QRSD Interval: 90 QT Interval: 384 QTC Interval: 438 P [place]: 15 QRS [place]: 85 T Wave [place]: 42 EKG Severity - BORDERLINE ECG - EKG Impression: SINUS RHYTHM EKG Impression: ATRIAL PREMATURE COMPLEX EKG Impression: BORDERLINE RIGHT AXIS DEVIATION EKG Impression: LOW VOLTAGE IN FRONTAL LEADS Electronically Signed By: Minor Jimenez 31-Mar-2017 19:28:55
[2017-03-31] MEDS: APIXABAN 5 MG TAB PO SCH ×2 (16:14→20:19)
[2017-03-31] MEDS ORDERED: POTASSIUM Cl (KCl) 10 MEQ/100 ML BAG IV ONE (16:27)
[2017-03-31] MEDS: POTASSIUM Cl (KCl) 100 ML IV SCH ×2 (16:35→17:26)
[2017-03-31] MEDS: NOREPINEPHRINE/NS 500 ML IV SCH ×2 (17:06→20:27)
[2017-03-31 17:47] LABS: COLOR YELLOW; LEUKOCYTE ESTERASE,URINE NEGATIVE (NEGATIVE); NITRITE,URINE NEGATIVE (NEGATIVE)
[2017-03-31 18:20] LABS: MIXED VENOUS O2 SATURATION 85 % (65-75)
[2017-03-31] MEDS ORDERED: PHENYLEPHRINE HCL 50 MG in NS 250 ML IV SCH (18:30)
[2017-03-31 18:35] LABS: ALBUMIN 3.2 g/dL (3.5-5.0); ANION GAP 18 mEq/L (8-16); CALCIUM 7.3 mg/dL (8.5-10.4); CARBON DIOXIDE 16 mEq/l (22-31); CHLORIDE 95 mEq/L (97-110); GLOMERULAR FILTRATION RATE 33; GLUCOSE 298 mg/dL (70-100); POTASSIUM 5.8 mEq/L (3.5-5.2); SODIUM 129 mEq/L (134-144)
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
[2017-03-31 18:57] LABS: BICARBONATE 15 mEq/L (22-26); MEASURED OXYGEN SATURATION 97 % (92-95); O2 CONCENTRATIION 40 % (0-100); P/F RATIO 290 RATIO; PATIENT RATE 17; PCO2 33 mmHg (34-38); PO2 116 mmHg (65-75); TCO2 16 mEq/L (23-27)
[2017-03-31 18:58] LABS: PRESSURE SUPPORT 7; SIMV YES
--- NOTE | 2017-03-31 19:04 | PDMN ---
Medical Necessity Medical necessity: C/M review: est. > 2 MN LOS for eval and TX of acute septic shock, uncontrolled. rapid paroxysmal atrial fibrillation, acute hypotension, acute renal failure, elevated bilirubin, hyponatremia, requiring emergent intubation in ED, cardioversion, ongoing mechanical ventilation, IV vasopressors , multiple IV medications in ICU, comorbid imnune deficiency due to myelodysplastic syndrome, chronic kidney disease, chronic vasculitis, obstructive sleep apnea, chronic pulmonary hypertension, chronic leg edema, depression per H/P.
[2017-03-31] MEDS ORDERED: SODIUM BICARBONATE 150 MEQ in D5W 1,000 ML IV SCH (19:30)
[2017-03-31] MEDS ORDERED: AMIODARONE HCL 540 MG in D5W 300 ML IV ONE (19:30)
[2017-03-31] MEDS ORDERED: NA BICARBONATE 50 MEQ/50 ML VIAL IV ONE (20:00)
[2017-03-31 20:50] LABS: POTASSIUM 6.1 mEq/L (3.5-5.2)
--- NOTE | 2017-03-31 21:04 | GPN ---
[f rep st] PROCEDURE NOTE DATE OF PROCEDURE: 03/31/2017 PROCEDURE: Central line placement. INDICATION: Venous access in a patient with hypotension and multiorgan failure. DESCRIPTION OF PROCEDURE: The procedure was done in the patient's room in the intensive care unit. Informed consent was obtained from the patient's . A time-out was performed prior to the procedu re. Appropriate sterile techniques were used throughout per protocols. A central line placement was attempted via the left subclavian vein. After 1% lidocaine local anesth esia, the central line needle was placed underneath the clavicle. On a number of occasions, signific ant blood return was encountered. However, on advancing the wire through the needle, the vein would apparently be pushed away, and it could not be cannulated. After several unsuccessful attempts, the procedure was abandoned secondary to the increased risk of bleeding due to Eliquis anticoagulation. A PICC line will be requested. The estimated blood loss was approximately 15 cc. A chest x-ray to r ule out a pneumothorax is pending at the time of this dictation. IMPRESSION: Unsuccessful central line attempt. A PICC line has been requested. /[id number]/MODL
[2017-03-31] MEDS: HYDROCORTISONE 100 MG/2 ML VIAL IVP SCH (21:38)
[2017-03-31] MEDS ORDERED: FUROSEMIDE 40 MG/4 ML VIAL IVP ONE (22:15)
[2017-03-31] MEDS ORDERED: SODIUM POLY SULF 15 GM/60 ML BOTTLE TUBE ONE (22:15)
[2017-04-01 01:54] LABS: POTASSIUM 4.7 mEq/L (3.5-5.2)
[2017-04-01] MEDS: fentaNYL/NACL 100 ML IV SCH ×2 (03:00→10:29)
[2017-04-01] MEDS: PROPOFOL/EMULSION 100 ML IV SCH (04:30)
[2017-04-01 04:38] LABS: ABSOLUTE NRBC COUNT 0.02 10^3/uL (0-0.01); ADD DIFF? YES; ADD MORPH? YES; ATYPICAL LYMPHOCYTE FLAG 0 (0-99); FRAGMENT RBC FLAG 0 (0-99); HEMATOCRIT 28.9 % (40.0-51.0); HEMOGLOBIN 10.4 g/dL (13.7-17.5); LEFT SHIFT FLG 60 (0-99); LIPEMIA HEMOLYSIS FLAG 90 (0-99); MEAN CELL HEMOGLOBIN 46.8 pg (27.9-34.1); MEAN PLATELET VOLUME 9.9 fL (8.7-11.7); NRBC-AUTO% 0.1 % (0.0-0.2); PLATELET CLUMPS FLAG 10 (0-99); PLATELET COUNT 83 10^3/uL (150-400); RED BLOOD CELL COUNT 2.22 10^6/uL (4.40-6.38); RED CELL DISTRIBUTION WIDTH 15.8 % (11.5-15.2)
[2017-04-01 04:51] LABS: ALBUMIN 2.8 g/dL (3.5-5.0); ALKALINE PHOSPHATASE 44 IU/L (38-126); ANION GAP 13 mEq/L (8-16); BILIRUBIN,TOTAL 2.1 mg/dL (0.1-1.4); CALCIUM 7.2 mg/dL (8.5-10.4); CARBON DIOXIDE 27 mEq/l (22-31); CHLORIDE 91 mEq/L (97-110); CREATININE 1.5 mg/dL (0.7-1.3); GLOMERULAR FILTRATION RATE 46; GLUCOSE 377 mg/dL (70-100); POTASSIUM 4.5 mEq/L (3.5-5.2); SODIUM 131 mEq/L (134-144); TOTAL PROTEIN 4.8 g/dL (6.3-8.2)
[2017-04-01 05:10] LABS: ADD SCAN? NO; MEAN CELL VOLUME 130.2 fL (81.5-99.8)
[2017-04-01 05:17] LABS: BILIRUBIN-CONJUGATED 1.2 mg/dL (0.0-0.5); BILIRUBIN-UNCONJUGATED 0.9 mg/dL (0.0-1.1)
[2017-04-01 05:19] LABS: ALANINE AMINOTRANSFERASE 1421 IU/L (21-72)
[2017-04-01 05:39] LABS: TOXIC GRANULATION PRESENT; TOXIC VACUOLIZATION PRESENT
[2017-04-01 05:40] LABS: MACROCYTES 2+; PLATELET ESTIMATE DECREASED (ADEQ)
[2017-04-01 05:41] LABS: ASPARTATE AMINOTRANSFERASE 2432 IU/L (17-59)
[2017-04-01 05:52] LABS: BASE EXCESS -1.5 mEq/L (-2.5-2.5); BICARBONATE 23 mEq/L (22-26); MEASURED OXYGEN SATURATION 98 % (92-95); PCO2 42 mmHg (34-38); PO2 119 mmHg (65-75); TCO2 25 mEq/L (23-27)
[2017-04-01 05:54] LABS: O2 CONCENTRATIION 40 % (0-100); P/F RATIO 298 RATIO; PATIENT RATE 16; SIMV YES
[2017-04-01 05:55] LABS: PRESSURE SUPPORT 7
[2017-04-01] MEDS: HYDROCORTISONE 100 MG/2 ML VIAL IVP SCH ×3 (06:25→22:32)
--- NOTE | 2017-04-01 08:08 | HOSPPROG ---
Hospitalist Progress Note Assessment/Plan: DIAGNOSES: -acute septic shock with multi system organ failure and requiring multiple pressor support -acute renal failure -acute shock liver -acute respiratory failure requiring mechanical ventilation -hyperglycemia after high-dose steroid, suspect underlying type 2 diabetes an obese patient -hyperkalemia, improved after treatment with medication -rapid atrial fibrillation, converted to sinus rhythm with electrocardioversion on newly started amiodarone Reviewed in detail with Dr. Jamel Barragan, Dr. Rosemarie Tang, Dr. Carlos Liao Seen on multidisciplinary rounds PLANS: Continue current supportive care at this time Will attempt to wean pressors and mechanical ventilator which may even potentially be feasible later today or tomorrow. Will review chest x-ray with Dr. Jamel Barragan, may need to repeat the x-ray with better penetration. If his chest x-ray findings acute do indicate lung injury or fluid would be more hesitant to try and wean ventilator Follow cultures closely and continue empiric antibiotics at this time; vancomycin as he has a port, Rocephin to cover g negatives SUBJECTIVE: Patient remains mechanically ventilated orally intubated, unable to adequately assess symptoms. He does not have specific pain or dyspnea at this time OBJECTIVE Vitals reviewed: Currently on 2 pressors at low dose, blood pressure is good and pulse is also stable, respirations per vent [employer], my review: Currently in sinus rhythm after cardioversion Ventilator: Excellent lung compliance and oxygenating easily on 40% oxygen, not likely consistent with significant pulmonary edema or lung injury or infiltrate Exam: alert responsive, wants to talk but unable skin warm dry color ok, currently good capillary refill in fingers resps per ventilator lungs clear BSs heart regular abd soft nondistended nontender, bowel sounds present limbs warm, no edema PICC site ok Chest x-ray, one view, my interpretation of image: There is diffuse chief even the white density throughout both lung nguyen which I think is probably due to underpenetration and obese man, somewhat hard to rule out that this is infiltrate or fluid Laboratory data: Kidneys continue to improve but not at baseline, currently 1.5 Potassium better Liver enzymes markedly elevated indicating shock liver Platelets a bit lower from yesterday, likely mostly reflecting his chronic marrow disease Objective: Vital Signs Temp Pulse Resp BP Pulse Ox 37.3 C 66 17 111/70 100 04/01/17 07:00 04/01/17 07:00 04/01/17 07:00 04/01/17 07:00 04/01/17 07:00 Microbiology 03/31/17 17:10 Respiratory Panel (PCR) - Final Nasal, Sinus - Swab No Organism Detected Laboratory Results 04/01/17 04:20 04/01/17 04:20 03/31/17 04/01/17 04/02/17 06:59 06:59 06:59 Intake Total 61519.5 Output Total 3455 Balance 7371.5 PT 18.1 SEC (12.0-15.0) H 03/31/17 12:35 INR 1.50 (0.83-1.16) H 03/31/17 12:35 ICD10 Worksheet Patient Problems: Problems Problem Status Onset Fever Acute Myelodysplastic syndrome Acute
[2017-04-01] MEDS ORDERED: D5W 1,000 ML IV SCH (08:15)
[2017-04-01] MEDS: INSULIN REGULAR HUMAN 100 UNIT in NS 100 ML IV SCH (08:26)
[2017-04-01] MEDS ORDERED: APIXABAN 5 MG TAB TUBE SCH (09:00)
[2017-04-01] MEDS: VANCOMYCIN 1.75 GM in D5W 500 ML IV SCH (09:22)
[2017-04-01] MEDS ORDERED: NS 1,000 ML IV SCH (10:45)
--- NOTE | 2017-04-01 10:46 | SOAPPROG ---
SOAP Progress Note Assessment/Plan: Assessment: ADOLFO improved acidosis resolved hyperkalemia resolved hypotension better atrial fib, now in sinus rhythm Plan: DC bicarb drip start NS at 75cc/hr no urgent HD needs, likely will not need HD follow lytes vol and renal function 04/01/17 10:43 Subjective: family at bedside, all questions answered to their satisfaction alert, remains intubated frustrated about endotracheal tube, but understands he needs it for now Objective: Vital Signs Temp Pulse Resp BP Pulse Ox 37.2 C 73 22 H 105/61 100 04/01/17 10:00 04/01/17 10:00 04/01/17 10:00 04/01/17 10:00 04/01/17 10:00 Microbiology 03/31/17 17:10 Respiratory Panel (PCR) - Final Nasal, Sinus - Swab No Organism Detected Laboratory Results 04/01/17 04:20 04/01/17 04:20 03/31/17 04/01/17 04/02/17 05:59 05:59 05:59 Intake Total 81037.5 286 Output Total 3455 455 Balance 7371.5 -169 PT 18.1 SEC (12.0-15.0) H 03/31/17 12:35 INR 1.50 (0.83-1.16) H 03/31/17 12:35 Physical Exam - Physical Exam General Appearance: alert, other (on vent) Respiratory: other (coarse bs bilaterally, no wh) Cardiac/Chest: regular rate, rhythm, No edema, No friction rub Abdomen: normal bowel sounds, non-tender, soft Skin: warm/dry Extremities: No pedal edema Neuro/Psych: alert ICD10 Worksheet Patient Problems: Problems Problem Status Onset Fever Acute Myelodysplastic syndrome Acute
--- NOTE | 2017-04-01 11:21 | PDCARPN ---
Cardiology Progress Note Assessment/Plan: Assessment/plan: 76-year-old male with paroxysmal atrial fibrillation, heart failure with preserved ejection fraction, vasculitis with cutaneous manifestations, myelodysplastic syndrome. He was admitted to the ICU on March 31 with shock and rapid atrial fibrillation as well as fever, acute renal failure, and shock liver. He had undergone intubation and cardioversion in the emergency department with early recurrence of atrial fibrillation, and therefore was started on amiodarone and had a repeat cardioversion by myself the afternoon of admission. Is clinically improved after aggressive fluid resuscitation. 1. Atrial fibrillation: Currently in sinus rhythm. Continue amiodarone drip. Consider transition to oral tomorrow. His blood pressure was quite responsive to rapid AFib, and therefore I think it is important for him to remain in sinus rhythm. He had been on Eliquis. We will switch this to heparin as his renal function has fluctuated. Restart outpatient beta mehran once he is stable off pressors. 2. Shock: This appears most likely hypovolemic as he was aggressively diuresed in the outpatient setting. He has responded well to fluid resuscitation. However, infection is still on the differential and he is on antibiotics. Cultures have been negative to date. No evidence of cardiac ischemia. 3. Acute renal failure: Due to hypotension and hypovolemia. This is improving. Appreciate renal consultation. 4. Markedly elevated AST and ALT: Likely due to hypoperfusion. Follow. Hepatitis panel is pending. 5. Vasculitis with intermittent fever: Steroids were recently increased. Ongoing evaluation for infectious etiology of his fever. 6. History of heart failure with preserved ejection fraction: Over the past several days his torsemide, spironolactone have been increased and metolazone was added as he was having dyspnea and weight gain. However, he was admitted with significant volume depletion. There may be another etiology for his dyspnea. BNP is only modestly elevated now. 7. Myelodysplastic syndrome: He is followed by Dr. Alfredo. 04/01/17 11:20 Subjective: Intubated but overall appears comfortable Reviewed/Discussed With: family, hospitalist, other (Dr. Barragan) Objective: Vital Signs (8 Hrs) Temp Pulse Resp BP Pulse Ox 04/01/17 11:00 37.1 C 77 27 H 118/70 100 04/01/17 10:00 37.2 C 73 22 H 105/61 100 04/01/17 09:10 20 100 04/01/17 09:00 37.3 C 70 15 109/64 99 04/01/17 08:45 76 15 100 04/01/17 08:00 37.3 C 62 15 118/61 100 04/01/17 07:00 37.3 C 66 17 111/70 100 04/01/17 06:00 37.2 C 91 18 127/69 H 99 04/01/17 05:00 61 12 91/60 L 100 04/01/17 04:00 37.3 C 61 7 L 90/64 L 100 Intake/Output (24 Hrs) 03/31/17 04/01/17 04/02/17 05:59 05:59 05:59 Intake Total 04270.5 340.6 Output Total 3455 455 Balance 7371.5 -114.4 Intake: Oral (ml) 0 IV Intake (ml) 2000 IV Infused (ml) 8776.5 340.6 Albumin 5% 500 ml @ As 500 Directed IV ONCE ONE Rx#: [id number] Amiodarone HCl 100 ml @ 464 600 mls/hr IV ONCE ONE Rx #:[id number] Norepinephrine/Ns 500 ml 1756 @ Per Protocol IV CONT SHY Rx#:[id number] Ns 1,000 ml @ 150 mls/hr 545 IV CONT SHY Rx#: [id number] Ns 1,000 ml @ Wide Open 1000 IV ONCE ONE Rx#: [id number] Propofol/Emulsion 100 ml 202.4 @ Per Protocol IV CONT SHY Rx#:[id number] Sodium Bicarbonate 150 1002 296.4 meq In D5w 1,000 ml @ 75 mls/hr IV AD SHY Rx#: [id number] Vasopressin/Dextrose 250 406.3 44.2 ml @ Titrate IV CONT SHY Rx#:[id number] fentaNYL/NACL 100 ml @ 150.8 Per Protocol IV CONT SHY Rx#:[id number] Tube Flush (ml) 50 Output: Urine (ml) 2705 455 Catheter 2705 455 OG Tube Output (ml) 750 Large Bore (>12 [place]) 750 Weighted Stomach 16 [place] Other: Weight 151.8 kg Number of Voids 0 Intubated but alert. Regular rate and rhythm without murmur rub or gallop Lungs clear anteriorly laterally Abdomen is obese soft nontender No lower extremity edema Result Diagrams: 04/01/17 04:20 04/01/17 04:20 Cardiac Labs: Cardiac Lab Results (72 Hrs) 04/01/17 04:20 Troponin I 0.080 H EKG: Reviewed: Post cardioversion tracing shows normal sinus rhythm with no ischemic abnormalities. Telemetry: Normal sinus rhythm since cardioversion yesterday afternoon ICD10 Worksheet Patient Problems: Problems Problem Status Onset Fever Acute Myelodysplastic syndrome Acute
[2017-04-01] MEDS: HEPARIN/DEXTROSE 500 ML IV SCH (11:51)
[2017-04-01] MEDS: FAMOTIDINE 20 MG/NACL 50 ML IV SCH (11:51)
[2017-04-01] MEDS ORDERED: HEPARIN 10,000 UNIT/10 ML MDV IVP PRN (12:00)
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
--- NOTE | 2017-04-01 12:36 | ECHO ---
[email or web address] [address] Main: [phone] Fax: Transthoracic Echocardiogram Name: MELLISSA BURNHAM MR#: [id number] Study Date: 04/01/2017 Study Time: 08:06 AM Date of : 1940 Age: 76 year(s) Height: 182.9 cm (72 in.) Weight: 143.79 kg (317 lb.) BSA: 2.59 m2 Gender: Male Examination: Echo Indication: Rapid afib with shock Image Quality: Technically Difficult Contrast: Requested by: Carlos Liao BP: 118 mmHg/61 mmHg Heart Rate: Rhythm: Indication: Rapid afib with shock Procedure Staff Adon: Marian Schaefer Reading Physician: Rosemarie Tang Requesting Provider: Conclusions: Normal size left ventricle. Low normal left ventricular systolic function. The ejection fraction is estimated to be 50-55 %. No regional wall motion abnormality. Mildly dilated right ventricle. Mildly reduced RV function. Trivial to mild mitral regurgitation. Mild tricuspid regurgitation is present. The pulmonary artery pressure is normal. Compared with DONALD 12/2016 LV low normal instead of normal RV is mildly dilated/mildly reduced function Measurements: Chambers Valvular Assessment AV/MV Valvular Assessment TV/PV Normal Normal Normal Name Value Range Name Value Range Name Value Range EF Range: 50-55 % AV meanP mmHg ( - ) TR Vmax: 1.99 mm/s ( - ) MV E Vmax: 0.68 m/s ( - ) TR PGmax: 16 mmHg ( - ) MV A Vmax: 0.54 m/s ( - ) syst. PAP: 31 mmHg ( - ) MV E/A: 1.26 ( - ) MV meanP mmHg ( - ) Continued Measurements: Chambers Valvular Assessment AV/MV Valvular Assessment TV/PV Name Value Name Value Name Value LADs Lon.3 cm MV DecTime: 162 m/s CVP (est.): 15 mmHg LA Area: 18.8 cm2 MV VTI: 24.10 cm TAPSE: 1.6 cm Patient: MELLISSA BURNHAM Study Date: 04/01/2017 Page 1 of 2 08:06 AM Findings: Left Ventricle: Normal size left ventricle. Low normal left ventricular systolic function. The ejection fraction is estimated to be 50-55 %. No regional wall motion abnormality. All scored wall segments are normal. All scored wall segments are normal. Right Ventricle: Mildly dilated right ventricle. Mildly reduced RV function. Left Atrium: LA normal by visual assessment.. Right Atrium: The right atrium is normal in size. Mitral Valve: The mitral valve is normal in appearance and function. Trivial to mild mitral regurgitation. Aortic Valve: The aortic valve is normal in appearance and function. There is no aortic valve regurgitation. No aortic valve stenosis is present. Tricuspid Valve: The tricuspid valve is normal in appearance and function. Mild tricuspid regurgitation is present. The pulmonary artery pressure is normal. Pulmonic Valve: Pulmonary valve not well visualized. Aorta: The aorta is normal. IVC: There is no inspiratory collapse of the IVC. Mildly dilated, patient on Vent.. Pericardium: Trivial pericardial effusion. There is pericardial fat. (No Signature Object) Wall Motion Scores Patient: MELLISSA BURNHAM Study Date: 04/01/2017 Page 2 of 2 08:06 AM [id number]
[2017-04-01] MEDS: AMIODARONE HCL 540 MG in D5W 300 ML IV SCH (13:03)
[2017-04-01] MEDS ORDERED: CANN-EASE 2 GM TUBE TP ONE (14:05)
[2017-04-01 14:54] LABS: BASE EXCESS 2.5 mEq/L (-2.5-2.5); BICARBONATE 26 mEq/L (22-26); MEASURED OXYGEN SATURATION 98 % (92-95); PCO2 35 mmHg (34-38); PO2 116 mmHg (65-75); TCO2 27 mEq/L (23-27)
[2017-04-01 14:56] LABS: CPAP YES
[2017-04-01 14:57] LABS: END TIDAL CO2 36; O2 CONCENTRATIION 40 % (0-100); P/F RATIO 290 RATIO
--- NOTE | 2017-04-01 15:07 | PDINTPN ---
Log Getter Progress Note Assessment/Plan: Assessment: Acute respiratory failure: Intubated at [facility], transferred here via flight to [facility]. Issues related to his decompensation and its cause are somewhat unclear. No evidence of pneumonia. Now on 40%, tolerating prolonged CPAP weans with an excellent blood gas in weaning parameters, few secretions, and stable otherwise. Off pressors. No acute non pulmonary issues identified at this time. Will extubate. Hypotension: Resolved. Off norepinephrine. Etiology not entirely clear. Possibly sepsis, possibly related to rapid atrial fibrillation? Possible sepsis: High white blood cell count, significantly hypotensive now resolved, with evidence of shock liver and acute renal insufficiency. The latter appears to be improving. Source of sepsis has not been identified. Blood cultures negative. Respiratory viral panel negative. Urine unremarkable. No abdominal symptoms. On ceftriaxone and vancomycin. Question possible SIRS/severe inflammatory response related to vasculitis verses over diuresis? He was given aggressive fluid resuscitation. CVP now 15. Atrial fibrillation with rapid ventricular response. Resolved post cardioversion. On amiodarone. On heparin drip. Plans per Cardiology. Appreciate care from Dr. Tang. Acute renal failure. BUN and creatinine improved. Good urine output. Renal following. Elevated liver function tests: Likely secondary to shock liver. Follow. Anemia: Hematocrit approximately 29, down from 38. Likely dilutional. Follow. GI prophylaxis: On famotidine. Plan: Continue present care. Continue amiodarone, antibiotics. Will extubate this afternoon. Follow clinical status and blood pressure. Can restart Levophed if needed. Follow laboratory, x-ray. 50 minutes of critical care time spent directly with the patient. Multiple visits. Discussed with the patient's family, respiratory, Cardiology, hospitalist, and the ICU multi disciplinary team. Subjective: Lightly sedated, relatively comfortable on the ventilator. Responsive. Writing notes. Wants to out. Objective: Vital Signs Temp Pulse Resp BP Pulse Ox 37.2 C 74 18 100/55 L 100 04/01/17 15:00 04/01/17 15:00 04/01/17 15:00 04/01/17 15:00 04/01/17 15:00 Microbiology 03/31/17 17:10 Respiratory Panel (PCR) - Final Nasal, Sinus - Swab No Organism Detected Laboratory Results 04/01/17 04:20 04/01/17 04:20 03/31/17 04/01/17 04/02/17 05:59 05:59 05:59 Intake Total 78792.5 408.1 Output Total 3455 1055 Balance 7371.5 -646.9 PT 18.1 SEC (12.0-15.0) H 03/31/17 12:35 INR 1.50 (0.83-1.16) H 03/31/17 12:35 Laboratory Tests 03/31/17 04/01/17 04/01/17 12:35 04:20 05:46 PT 18.1 H INR 1.50 H APTT 41.6 H pCO2 42 H pO2 119 H ABG pH 7.37 ABG O2 Saturation 98 H O2 Concentration % 40 Actual Respiration Rate 16 SIMV YES Tidal Volume 500 CPAP Calcium 7.2 L Phosphorus 4.9 H Total Bilirubin 2.1 H D AST 2432 H ALT 1421 H Troponin I 0.080 H Albumin 2.8 L 04/01/17 14:43 PT INR APTT pCO2 35 pO2 116 H ABG pH 7.48 H ABG O2 Saturation 98 H O2 Concentration % 40 Actual Respiration Rate SIMV Tidal Volume CPAP YES Calcium Phosphorus Total Bilirubin AST ALT Troponin I Albumin CXR: Hypoventilatory changes, under penetrated. Lines and tubes appear to be in adequate position. ICD10 Worksheet Patient Problems: Problems Problem Status Onset Fever Acute Myelodysplastic syndrome Acute
[2017-04-01 17:55] LABS: POTASSIUM 3.1 mEq/L (3.5-5.2)
[2017-04-01] MEDS ORDERED: POTASSIUM Cl (KCl) 50 ML IV ONE (19:00)
[2017-04-01] MEDS ORDERED: ZOLPIDEM TARTRATE 5 MG TAB PO ONE (20:15)
[2017-04-02] MEDS: ACETAMINOPHEN 325 MG TAB PO PRN ×3 (00:51→22:51)
[2017-04-02] MEDS: HEPARIN/DEXTROSE 500 ML IV SCH (00:51)
[2017-04-02 02:15] LABS: HEMOGLOBIN A1C 5.5 % (4.0-6.0)
[2017-04-02 03:54] LABS: HEPATITIS B SURFACE ANTIBODY NEGATIVE (NEGATIVE)
[2017-04-02] MEDS: INSULIN REGULAR HUMAN 100 UNIT in NS 100 ML IV SCH (05:00)
[2017-04-02 05:02] LABS: ADD DIFF? YES; ATYPICAL LYMPHOCYTE FLAG 0 (0-99); FRAGMENT RBC FLAG 20 (0-99); HEMATOCRIT 24.8 % (40.0-51.0); LEFT SHIFT FLG 30 (0-99); LIPEMIA HEMOLYSIS FLAG 90 (0-99); MEAN CELL HEMOGLOBIN 46.6 pg (27.9-34.1); MEAN CELL HEMOGLOBIN CONCENTR. 36.3 g/dL (32.4-36.7); MEAN CELL VOLUME 128.5 fL (81.5-99.8); MEAN PLATELET VOLUME 10.5 fL (8.7-11.7); PLATELET CLUMPS FLAG 10 (0-99); PLATELET COUNT 80 10^3/uL (150-400); RED BLOOD CELL COUNT 1.93 10^6/uL (4.40-6.38)
[2017-04-02 05:03] LABS: ADD MORPH? NO; ADD SCAN? NO
[2017-04-02 05:43] LABS: MACROCYTES 2+; PLATELET ESTIMATE DECREASED (ADEQ)
[2017-04-02 06:21] LABS: ALANINE AMINOTRANSFERASE 973 IU/L (21-72); ALBUMIN 2.4 g/dL (3.5-5.0); ALKALINE PHOSPHATASE 48 IU/L (38-126); ANION GAP 11 mEq/L (8-16); ASPARTATE AMINOTRANSFERASE 724 IU/L (17-59); CALCIUM 6.9 mg/dL (8.5-10.4); CARBON DIOXIDE 30 mEq/l (22-31); CHLORIDE 94 mEq/L (97-110); GLOMERULAR FILTRATION RATE > 60; GLUCOSE 147 mg/dL (70-100); POTASSIUM 3.2 mEq/L (3.5-5.2); SODIUM 135 mEq/L (134-144); TOTAL PROTEIN 4.4 g/dL (6.3-8.2)
[2017-04-02] MEDS: AMIODARONE HCL 540 MG in D5W 300 ML IV SCH (06:43)
[2017-04-02] MEDS: HYDROCORTISONE 100 MG/2 ML VIAL IVP SCH ×2 (06:43→20:57)
[2017-04-02] MEDS ORDERED: PROTOCOL POTASSIUM 1 DOSE MISC PRN (07:44)
[2017-04-02] MEDS ORDERED: POTASSIUM CL 10 MEQ TAB PO ONE ×2 (07:59→20:05)
[2017-04-02] MEDS: FAMOTIDINE 20 MG/NACL 50 ML IV SCH (08:05)
--- NOTE | 2017-04-02 09:08 | SOAPPROG ---
SOAP Progress Note Assessment/Plan: Assessment:Plan: ARF-resolved -etiology discussed with patient -creatinine back to baseline -volume status paul agarwal out -PVR's per protocol -will sign off Hypokalemia-on replacement protocol -K given -check Mag level -replace if needed Hematoma-R occiput -bruise L wrist -low platelets -discussed with patient -would apply cool packs to decrease swelling and discomfort 04/02/17 09:07 Subjective: stable overnite Objective: Vital Signs Temp Pulse Resp BP Pulse Ox 36.5 C 75 15 122/75 H 100 04/02/17 08:00 04/02/17 08:00 04/02/17 08:00 04/02/17 08:00 04/02/17 08:00 Laboratory Results 04/02/17 04:30 04/02/17 04:30 04/01/17 04/02/17 04/03/17 05:59 05:59 05:59 Intake Total 32483.5 4259.0 211 Output Total 3455 2730 275 Balance 7371.5 1529.0 -64 PT 18.1 SEC (12.0-15.0) H 03/31/17 12:35 INR 1.50 (0.83-1.16) H 03/31/17 12:35 Physical Exam - Physical Exam General Appearance: WD/WN, alert, no apparent distress, obese EENT: other (hematoma R occiput) Neck: normal inspection Respiratory: lungs clear, decreased breath sounds (at bases) Cardiac/Chest: regular rate, rhythm, No diastolic murmur, No systolic murmur, No friction rub Abdomen: normal bowel sounds, non-tender, soft, other (no bm x 4 days) Skin: normal color, other (bruise L wrist) Extremities: No swelling ICD10 Worksheet Patient Problems: Problems Problem Status Onset Fever Acute Myelodysplastic syndrome Acute
--- NOTE | 2017-04-02 09:31 | PDINTPN ---
Rn Peritoneal Dialysis Progress Note Assessment/Plan: Assessment/Plan: * Acute respiratory failure: Stable off mechanical ventilation. * Hypotension: Resolved. * Possible sepsis: High white blood cell count, significantly hypotensive now resolved, with evidence of shock liver and acute renal insufficiency. The latter appears to be improving. Source of sepsis has not been identified. Blood cultures negative. Respiratory viral panel negative. Urine unremarkable. No abdominal symptoms. On ceftriaxone and vancomycin. Question possible SIRS/severe inflammatory response related to vasculitis verses over diuresis? He was given aggressive fluid resuscitation. CVP now 15. * Atrial fibrillation with rapid ventricular response. Resolved post cardioversion. \ -to oral amiodarone today * Acute renal failure. BUN and creatinine improved. Good urine output. Renal following. * Elevated liver function tests: Likely secondary to shock liver. Follow. * Anemia: Hematocrit approximately 29, down from 38. Likely dilutional. Follow. * GI prophylaxis: On famotidine. * Hyperglycemia-currently on and a insulin drip. -will change sliding scale * Disposition-will transfer to step-down unit Subjective: Up in chair. Comfortable. Somewhat slow to respond. Objective: Vital Signs Temp Pulse Resp BP Pulse Ox 36.5 C 75 15 122/75 H 100 04/02/17 08:00 04/02/17 08:00 04/02/17 08:00 04/02/17 08:00 04/02/17 08:00 Laboratory Results 04/02/17 04:30 04/02/17 04:30 04/01/17 04/02/17 04/03/17 05:59 05:59 05:59 Intake Total 04211.5 4259.0 211 Output Total 3455 2730 275 Balance 7371.5 1529.0 -64 PT 18.1 SEC (12.0-15.0) H 03/31/17 12:35 INR 1.50 (0.83-1.16) H 03/31/17 12:35 Physical Exam - Physical Exam General Appearance: alert, no apparent distress EENT: PERRL/EOMI, normal ENT inspection Neck: non-tender Respiratory: prolonged expiration, No respiratory distress, No wheezing Cardiac/Chest: normal peripheral pulses, regular rate, rhythm, systolic murmur Peripheral Pulses: 2+: carotid (R), carotid (L), femoral (R), femoral (L), dorsalis-pedis (R), dorsalis-pedis (L) Abdomen: normal bowel sounds, non-tender, soft Male Genitalia: deferred Rectal: deferred Skin: normal color, warm/dry ICD10 Worksheet Patient Problems: Problems Problem Status Onset Fever Acute Myelodysplastic syndrome Acute
--- NOTE | 2017-04-02 09:37 | PDCARPN ---
Cardiology Progress Note Chief Complaint: Sepsis with atrial fibrillation and RVR noted Assessment/Plan: Assessment: Patient is a 76 y/o male with history of pAF (on Eliquis in the past which was stopped given fluctuations in renal function, [id number] score of 3), CHF with preserved EF, vasculitis, myelodysplastic syndrome (followed by Heme/Onc), with admission to [facility] ICU on 03-31-17 with atrial fibrillation and RVR and shock. Intubation for respiratory protection/support and cardioversion (was briefly successful and Amiodarone drip was started, which has been able to maintain sinus rhythm at present). Today, the patient is sitting up in chair. No cardiovascular complaints - no chest pains or pressure, no PND or orthopnea. Good sleep. Diuresis has been good. Renal function has normalized (appreciate nephrology input). Patient with "injury" to head (uncertain how this occurred). Family was at bedside this morning. Questions from nursing staff were addressed (1) IV Amio to PO Amio (2) Advance PO diet (3) CT with contrast of head given an uncertain injury and supratherapeutic heparin levels. Plan: (1) Would resume therapy on Eliquis after about one hour (to allow heparin levels to normalize) (2) CT of head given injury of uncertain significance (3) Nephrology continues to follow this patient (normal renal function is noted ) (4) Maintain antibiotics for suspected sepsis (5) Steroids have been used for the cellulitis (6) Would closely monitor weights and physical examination given concerns about heart failure (7) Will continue to closely follow this patient Subjective: No cardiovascular complaints were voiced today. Patient was sitting up in a chair, feeling well. Reviewed/Discussed With: family, multidisciplinary team Objective: Vital Signs (8 Hrs) Temp Pulse Resp BP Pulse Ox 04/02/17 08:00 36.5 C 75 15 122/75 H 100 04/02/17 06:00 70 13 127/82 H 97 04/02/17 04:00 75 15 116/70 94 04/02/17 02:00 77 12 116/72 98 Intake/Output (24 Hrs) 04/01/17 04/02/17 04/03/17 05:59 05:59 05:59 Intake Total 38744.5 4259.0 211 Output Total 3455 2730 275 Balance 7371.5 1529.0 -64 Intake: Oral (ml) 0 450 IV Intake (ml) 2000 IV Infused (ml) 8776.5 3809.0 211 Albumin 5% 500 ml @ As 500 Directed IV ONCE ONE Rx#: [id number] Amiodarone HCl 100 ml @ 464 600 mls/hr IV ONCE ONE Rx #:[id number] Amiodarone HCl 540 mg In 384 D5w 300 ml @ 16.667 mls/ hr IV AD SHY Rx#: [id number] D5w 1,000 ml @ 25 mls/hr 524 IV CONT SHY Rx#: [id number] Heparin/Dextrose 500 ml @ 539 As Directed IV CONT SHY Rx#:[id number] Insulin Regular Human 100 89.4 unit In Ns 100 ml @ Per Protocol IV CONT SHY Rx#: [id number] Norepinephrine/Ns 500 ml 1756 67.5 @ Per Protocol IV CONT SHY Rx#:[id number] Ns 1,000 ml @ 150 mls/hr 545 IV CONT SHY Rx#: [id number] Ns 1,000 ml @ 75 mls/hr 1742 161 IV CONT SHY Rx#: [id number] Ns 1,000 ml @ Wide Open 1000 IV ONCE ONE Rx#: [id number] Propofol/Emulsion 100 ml 202.4 53.4 @ Per Protocol IV CONT SHY Rx#:[id number] Sodium Bicarbonate 150 1002 296.4 meq In D5w 1,000 ml @ 75 mls/hr IV AD SHY Rx#: [id number] Vasopressin/Dextrose 250 406.3 44.2 ml @ Titrate IV CONT SHY Rx#:[id number] cefTRIAXone 1 GM/DEXTROSE 50 50 ml @ 100 mls/hr IV DAILY SHY Rx#:[id number] fentaNYL/NACL 100 ml @ 150.8 69.1 Per Protocol IV CONT SHY Rx#:[id number] Tube Flush (ml) 50 Output: Urine (ml) 2705 2530 275 Catheter 2705 2530 275 OG Tube Output (ml) 750 200 Large Bore (>12 [place]) 750 200 Weighted Stomach 16 [place] Other: Weight 151.8 kg Number of Voids 0 Result Diagrams: 04/02/17 04:30 04/02/17 04:30 Cardiac Labs: Cardiac Lab Results (72 Hrs) 04/01/17 04:20 Troponin I 0.080 H Telemetry: normal sinus rhythm - Physical Exam Constitutional: healthy appearing, no apparent distress, obese Eyes: PERRL, EOMI Ears, Nose, Mouth, Throat: moist mucous membranes Cardiovascular: regular rate and rhythm, no murmurs, no rubs, no gallops Peripheral Pulses: 2+: dorsalis-pedis (R), dorsalis-pedis (L) Respiratory: no wheezes, reduced air movement Gastrointestinal: normoactive bowel sounds Skin: no edema, other (left wrist haematoma (? etiology)) Musculoskeletal: no muscular tenderness, no joint effusions Neurologic: AAOx3, CN II-XII grossly intact Psychiatric: cooperative, interactive, following commands ICD10 Worksheet Patient Problems: Problems Problem Status Onset Fever Acute Myelodysplastic syndrome Acute
[2017-04-02] MEDS: VANCOMYCIN 1.75 GM in D5W 500 ML IV SCH (09:45)
[2017-04-02] MEDS: AMIODARONE HCL 200 MG TAB PO SCH ×2 (10:09→20:56)
[2017-04-02] MEDS ORDERED: D50W 25 GM/50 ML SYR IVP PRN (10:45)
[2017-04-02] MEDS ORDERED: D10W 250 ML PRN HYPOGLYCEMIA IV (11:00)
[2017-04-02] MEDS: INSULIN REGULAR HUMAN 100 UNIT/ML SC SCH ×3 (11:27→20:57)
[2017-04-02] MEDS: LEVOTHYROXINE 125 MCG TAB PO SCH (11:27)
[2017-04-02] MEDS: CYANO/VITAMIN B12 100 MCG TAB PO SCH (11:27)
--- NOTE | 2017-04-02 17:51 | HOSPPROG ---
Hospitalist Progress Note Assessment/Plan: DIAGNOSES: -acute septic shock with multi system organ failure and requiring multiple pressor support -acute renal failure -acute shock liver -acute respiratory failure requiring mechanical ventilation -hyperglycemia after high-dose steroid, suspect underlying type 2 diabetes an obese patient -hyperkalemia, improved after treatment with medication -rapid atrial fibrillation, converted to sinus rhythm with electrocardioversion on newly started amiodarone Reviewed in detail with Dr. 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, 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: Currently in sinus rhythm after cardioversion Exam: alert oriented very weak, slow skin warm dry color ok, currently good capillary refill in fingers resps relaxed on O2 lungs clear BSs heart regular abd soft nondistended nontender, bowel sounds present limbs warm, no edema PICC site ok Objective: Vital Signs Temp Pulse Resp BP Pulse Ox 36.3 C 88 17 122/69 H 96 04/02/17 15:57 04/02/17 15:57 04/02/17 15:57 04/02/17 15:57 04/02/17 15:57 Laboratory Results 04/02/17 04:30 04/02/17 04:30 04/01/17 04/02/17 04/03/17 06:59 06:59 06:59 Intake Total 43897.5 4259.0 1109.4 Output Total 3455 2730 335 Balance 7371.5 1529.0 774.4 PT 18.1 SEC (12.0-15.0) H 03/31/17 12:35 INR 1.50 (0.83-1.16) H 03/31/17 12:35 - Time Spent With Patient Time Spent with Patient: greater than 35 minutes Time Spent with Patient: Greater than 35 minutes spent on this patients care, greater than 50% of time spent counseling, educating, and coordinating care regarding the above mentioned plan. ICD10 Worksheet Patient Problems: Problems Problem Status Onset Fever Acute Myelodysplastic syndrome Acute
[2017-04-02 18:46] LABS: POTASSIUM 2.9 mEq/L (3.5-5.2)
[2017-04-02] MEDS: METOPROLOL TARTRATE 25 MG TAB PO SCH (20:57)
[2017-04-02] MEDS: LORazepam 1 MG TAB PO PRN (20:57)
[2017-04-02] MEDS: APIXABAN 5 MG TAB PO SCH (20:57)
[2017-04-02] MEDS: MAGNESIUM OXIDE 400 MG TAB PO SCH (20:57)
[2017-04-02] MEDS: FAMOTIDINE 20 MG TAB PO SCH (20:57)
[2017-04-02] MEDS: MELATONIN 3 MG TAB PO SCH (20:57)
[2017-04-02] MEDS ORDERED: NON-FORMULARY NEW DRUG (Ranitidine Hcl [Zantac] 150 MG) PO SCH (21:00)
[2017-04-03] MEDS: LORazepam 1 MG TAB PO PRN ×2 (03:41→20:08)
[2017-04-03 04:06] LABS: ADD DIFF? YES; ADD SCAN? NO; ATYPICAL LYMPHOCYTE FLAG 0 (0-99); FRAGMENT RBC FLAG 0 (0-99); HEMATOCRIT 26.4 % (40.0-51.0); HEMOGLOBIN 9.2 g/dL (13.7-17.5); LEFT SHIFT FLG 60 (0-99); LIPEMIA HEMOLYSIS FLAG 90 (0-99); MEAN CELL HEMOGLOBIN 45.1 pg (27.9-34.1); MEAN CELL HEMOGLOBIN CONCENTR. 34.8 g/dL (32.4-36.7); MEAN PLATELET VOLUME 10.4 fL (8.7-11.7); PLATELET CLUMPS FLAG 0 (0-99); PLATELET COUNT 73 10^3/uL (150-400); RED BLOOD CELL COUNT 2.04 10^6/uL (4.40-6.38); RED CELL DISTRIBUTION WIDTH 14.6 % (11.5-15.2)
[2017-04-03 04:17] LABS: ADD MORPH? NO; MEAN CELL VOLUME 129.4 fL (81.5-99.8)
[2017-04-03 04:18] LABS: ALANINE AMINOTRANSFERASE 719 IU/L (21-72); ALBUMIN 2.7 g/dL (3.5-5.0); ALKALINE PHOSPHATASE 45 IU/L (38-126); ANION GAP 10 mEq/L (8-16); ASPARTATE AMINOTRANSFERASE 357 IU/L (17-59); BILIRUBIN,TOTAL 0.8 mg/dL (0.1-1.4); CALCIUM 7.2 mg/dL (8.5-10.4); CARBON DIOXIDE 31 mEq/l (22-31); CHLORIDE 95 mEq/L (97-110); GLOMERULAR FILTRATION RATE > 60; GLUCOSE 146 mg/dL (70-100); POTASSIUM 3.4 mEq/L (3.5-5.2); SODIUM 136 mEq/L (134-144); TOTAL PROTEIN 4.9 g/dL (6.3-8.2)
[2017-04-03 04:43] LABS: MACROCYTES 3+; PLATELET ESTIMATE DECREASED (ADEQ)
[2017-04-03] MEDS ORDERED: POTASSIUM CL 10 MEQ TAB PO ONE ×2 (05:17→20:12)
[2017-04-03] MEDS: LEVOTHYROXINE 125 MCG TAB PO SCH (06:09)
[2017-04-03] MEDS: INSULIN REGULAR HUMAN 100 UNIT/ML SC SCH ×4 (08:35→20:09)
[2017-04-03] MEDS: AMIODARONE HCL 200 MG TAB PO SCH ×2 (08:51→20:08)
[2017-04-03] MEDS: METOPROLOL TARTRATE 25 MG TAB PO SCH ×2 (08:51→20:04)
[2017-04-03] MEDS: APIXABAN 5 MG TAB PO SCH ×2 (08:52→20:08)
[2017-04-03] MEDS: CYANO/VITAMIN B12 100 MCG TAB PO SCH (08:52)
[2017-04-03] MEDS: MULTIVITAMINS 1 EACH TAB PO SCH (08:53)
[2017-04-03] MEDS: FAMOTIDINE 20 MG TAB PO SCH ×2 (08:53→20:08)
[2017-04-03] MEDS: HYDROCORTISONE 100 MG/2 ML VIAL IVP SCH ×2 (08:53→20:09)
--- NOTE | 2017-04-03 09:32 | PDINTPN ---
Risk And Insurance Consultant Progress Note Assessment/Plan: Assessment/Plan: * Acute respiratory failure: Stable off mechanical ventilation. * Hypotension: Resolved. * Possible sepsis: Resolved * Atrial fibrillation with rapid ventricular response. Resolved post cardioversion. \ -to oral amiodarone today * Acute renal failure. Continues to improve * Elevated liver function tests: Likely secondary to shock liver. Follow. * Anemia: Hematocrit approximately 29, down from 38. Likely dilutional. Follow. * GI prophylaxis: On famotidine. * Hyperglycemia-currently on and a insulin drip. -will change sliding scale * Disposition-okay for medical surgical floor Subjective: Resting comfortably. Denies any pain. There is no breathlessness. He wishes to go home Objective: Vital Signs Temp Pulse Resp BP Pulse Ox 37.0 C 75 17 139/74 H 98 04/03/17 08:00 04/03/17 08:00 04/03/17 08:00 04/03/17 08:00 04/03/17 08:00 Laboratory Results 04/03/17 03:58 04/03/17 03:58 04/02/17 04/03/17 04/04/17 05:59 05:59 05:59 Intake Total 4259.0 1484.4 Output Total 2730 1385 Balance 1529.0 99.4 PT 18.1 SEC (12.0-15.0) H 03/31/17 12:35 INR 1.50 (0.83-1.16) H 03/31/17 12:35 Physical Exam - Physical Exam General Appearance: alert, no apparent distress EENT: PERRL/EOMI, normal ENT inspection Neck: non-tender Respiratory: chest non-tender, lungs clear Cardiac/Chest: normal peripheral pulses, regular rate, rhythm, systolic murmur Peripheral Pulses: 2+: carotid (R), carotid (L), femoral (R), femoral (L), dorsalis-pedis (R), dorsalis-pedis (L) Abdomen: normal bowel sounds, non-tender, soft Male Genitalia: deferred Rectal: deferred Skin: normal color, warm/dry Extremities: normal range of motion, non-tender, normal inspection, normal capillary refill Neuro/Psych: no motor/sensory deficits, alert, normal mood/affect, oriented x 3 ICD10 Worksheet Patient Problems: Problems Problem Status Onset Fever Acute Myelodysplastic syndrome Acute
[2017-04-03] MEDS: VANCOMYCIN 1.75 GM in D5W 500 ML IV SCH (10:00)
--- NOTE | 2017-04-03 12:26 | HOSPPROG ---
Hospitalist Progress Note Assessment/Plan: DIAGNOSES: -acute septic shock with multi system organ failure and requiring multiple pressor support -acute renal failure -acute shock liver -acute respiratory failure requiring mechanical ventilation -hyperglycemia after high-dose steroid, suspect underlying type 2 diabetes an obese patient -hyperkalemia, improved after treatment with medication -rapid atrial fibrillation, converted to sinus rhythm with electrocardioversion on newly started amiodarone Reviewed in detail with Dr. 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: Currently in sinus rhythm after cardioversion Exam: alert oriented very weak, slow skin warm dry color ok, currently good capillary refill in fingers resps relaxed on O2 lungs clear BSs heart regular abd soft nondistended nontender, bowel sounds present limbs warm, no edema PICC site ok CT haed yesterday, my review of images: no bleed or other acute abnormalities Objective: Vital Signs Temp Pulse Resp BP Pulse Ox 37.0 C 75 17 139/74 H 98 04/03/17 08:00 04/03/17 08:00 04/03/17 08:00 04/03/17 08:00 04/03/17 08:00 Laboratory Results 04/03/17 03:58 04/03/17 03:58 04/02/17 04/03/17 04/04/17 06:59 06:59 06:59 Intake Total 4259.0 1484.4 Output Total 2730 1385 Balance 1529.0 99.4 PT 18.1 SEC (12.0-15.0) H 03/31/17 12:35 INR 1.50 (0.83-1.16) H 03/31/17 12:35 ICD10 Worksheet Patient Problems: Problems Problem Status Onset Fever Acute Myelodysplastic syndrome Acute
--- NOTE | 2017-04-03 12:29 | PDCARPN ---
Cardiology Progress Note Chief Complaint: No complaints today. Patient was sitting up in his chair. Family ( and son ) with lunch. Assessment/Plan: Assessment: 04-03-17 Patient without complaints today. Patient was sitting up in chair. No events overnight. Patient denies cardiovascular complaints - no chest pains or pressure. No PND or orthopnea. No regular or routine use of IS. Patient did take a walk earlier today, and reportedly felt well with this activity. CT of head yesterday to ensure that no pathology was noted (? fall - patient does not know how the injury occurred). No intercranial pathology was noted, but there was a superficial haematoma noted. Given normalization of the renal function, patient was resumed on Eliquis yesterday for more consistent CVA coverage given pAF history. 04-02-17 Patient is a 76 y/o male with history of pAF (on Eliquis in the past which was stopped given fluctuations in renal function, [id number] score of 3), CHF with preserved EF, vasculitis, myelodysplastic syndrome (followed by Heme/Onc), with admission to [facility] ICU on 03-31-17 with atrial fibrillation and RVR and shock. Intubation for respiratory protection/support and cardioversion (was briefly successful and Amiodarone drip was started, which has been able to maintain sinus rhythm at present). Today, the patient is sitting up in chair. No cardiovascular complaints - no chest pains or pressure, no PND or orthopnea. Good sleep. Diuresis has been good. Renal function has normalized (appreciate nephrology input). Patient with "injury" to head (uncertain how this occurred). Family was at bedside this morning. Questions from nursing staff were addressed (1) IV Amio to PO Amio (2) Advance PO diet (3) CT with contrast of head given an uncertain injury and supratherapeutic heparin levels. Plan: (1) Eliquis for CVA prophylaxis given pAF history (2) Ambulation as tolerated (3) Antibiotic coverage for cellulitis/sepsis to continue (4) Aggressive OT/PT given the event that led to admission Subjective: No cardiovascular complaints today Reviewed/Discussed With: family Objective: Vital Signs (8 Hrs) Temp Pulse Resp BP Pulse Ox 04/03/17 08:00 37.0 C 75 17 139/74 H 98 Intake/Output (24 Hrs) 1004/03/17 04/04/17 05:59 05:59 05:59 Intake Total 4259.0 1484.4 Output Total 2730 1385 Balance 1529.0 99.4 Intake: Oral (ml) 450 375 IV Infused (ml) 3809.0 1109.4 Amiodarone HCl 540 mg In 384 52 D5w 300 ml @ 16.667 mls/ hr IV AD SHY Rx#: [id number] D5w 1,000 ml @ 25 mls/hr 524 80 IV CONT SHY Rx#: [id number] Famotidine 20 mg/NaCl 50 50 ml @ 200 mls/hr IV DAILY SHY Rx#:[id number] Heparin/Dextrose 500 ml @ 539 76.9 As Directed IV CONT SHY Rx#:[id number] Insulin Regular Human 100 89.4 4.5 unit In Ns 100 ml @ Per Protocol IV CONT SHY Rx#: [id number] Norepinephrine/Ns 500 ml 67.5 @ Per Protocol IV CONT SHY Rx#:[id number] Ns 1,000 ml @ 75 mls/hr 1742 296 IV CONT SHY Rx#: [id number] Propofol/Emulsion 100 ml 53.4 @ Per Protocol IV CONT SHY Rx#:[id number] Sodium Bicarbonate 150 296.4 meq In D5w 1,000 ml @ 75 mls/hr IV AD SHY Rx#: [id number] Vancomycin 1.75 gm In D5w 500 500 ml @ 250 mls/hr IV DAILY SHY Rx#:[id number] Vasopressin/Dextrose 250 44.2 ml @ Titrate IV CONT SHY Rx#:[id number] cefTRIAXone 1 GM/DEXTROSE 50 50 ml @ 100 mls/hr IV DAILY SHY Rx#:[id number] fentaNYL/NACL 100 ml @ 69.1 Per Protocol IV CONT SHY Rx#:[id number] Output: Urine (ml) 2530 1385 Catheter 2530 335 Urinal 1050 OG Tube Output (ml) 200 Large Bore (>12 [place]) [address] 16 [place] Other: Weight 152.5 kg Intake Quantity Yes Sufficient Number of Voids Toilet 1 Number of Stools Toilet 1 Post Void Residual Scan Volume (ml) Toilet 187 Result Diagrams: 04/03/17 03:58 04/03/17 03:58 Cardiac Labs: Cardiac Lab Results (72 Hrs) 04/01/17 04:20 Troponin I 0.080 H Telemetry: normal sinus rhythm - Physical Exam Constitutional: healthy appearing, no apparent distress, obese Eyes: PERRL, EOMI Ears, Nose, Mouth, Throat: moist mucous membranes Cardiovascular: regular rate and rhythm, systolic murmur Peripheral Pulses: 2+: dorsalis-pedis (R), dorsalis-pedis (L) Respiratory: no wheezes, reduced air movement Gastrointestinal: normoactive bowel sounds Skin: no rashes Musculoskeletal: no muscular tenderness Neurologic: AAOx3, CN II-XII grossly intact Psychiatric: cooperative, interactive, following commands ICD10 Worksheet Patient Problems: Problems Problem Status Onset Fever Acute Myelodysplastic syndrome Acute
[2017-04-03] MEDS: ACETAMINOPHEN 325 MG TAB PO PRN ×2 (15:59→20:08)
[2017-04-03 19:31] LABS: POTASSIUM 3.4 mEq/L (3.5-5.2)
[2017-04-03] MEDS: MELATONIN 3 MG TAB PO SCH (20:04)
[2017-04-03] MEDS: MAGNESIUM OXIDE 400 MG TAB PO SCH (20:08)
[2017-04-04] MEDS: ACETAMINOPHEN 325 MG TAB PO PRN ×2 (01:02→20:06)
[2017-04-04] MEDS: LORazepam 1 MG TAB PO PRN ×2 (01:03→20:18)
[2017-04-04] MEDS: LEVOTHYROXINE 125 MCG TAB PO SCH (05:10)
[2017-04-04 05:32] LABS: ADD DIFF? YES; ATYPICAL LYMPHOCYTE FLAG 0 (0-99); FRAGMENT RBC FLAG 0 (0-99); HEMATOCRIT 26.6 % (40.0-51.0); HEMOGLOBIN 9.5 g/dL (13.7-17.5); LIPEMIA HEMOLYSIS FLAG 90 (0-99); MEAN CELL HEMOGLOBIN 46.6 pg (27.9-34.1); MEAN CELL HEMOGLOBIN CONCENTR. 35.7 g/dL (32.4-36.7); PLATELET CLUMPS FLAG 0 (0-99); PLATELET COUNT 79 10^3/uL (150-400); RED BLOOD CELL COUNT 2.04 10^6/uL (4.40-6.38); RED CELL DISTRIBUTION WIDTH 14.5 % (11.5-15.2)
[2017-04-04 05:35] LABS: ADD MORPH? NO; ADD SCAN? NO; LEFT SHIFT FLG 140 (0-99); MEAN CELL VOLUME 130.4 fL (81.5-99.8)
[2017-04-04 06:04] LABS: MACROCYTES 3+; POLYCHROMASIA 1+
[2017-04-04 06:06] LABS: PLATELET ESTIMATE DECREASED (ADEQ)
[2017-04-04 06:09] LABS: ALANINE AMINOTRANSFERASE 494 IU/L (21-72); ALBUMIN 2.5 g/dL (3.5-5.0); ALKALINE PHOSPHATASE 43 IU/L (38-126); ANION GAP 11 mEq/L (8-16); ASPARTATE AMINOTRANSFERASE 133 IU/L (17-59); BILIRUBIN,TOTAL 0.8 mg/dL (0.1-1.4); CALCIUM 7.8 mg/dL (8.5-10.4); CARBON DIOXIDE 32 mEq/l (22-31); CHLORIDE 95 mEq/L (97-110); CREATININE 0.9 mg/dL (0.7-1.3); GLOMERULAR FILTRATION RATE > 60; GLUCOSE 115 mg/dL (70-100); POTASSIUM 3.7 mEq/L (3.5-5.2); SODIUM 138 mEq/L (134-144); TOTAL PROTEIN 4.7 g/dL (6.3-8.2)
[2017-04-04] MEDS ORDERED: POTASSIUM CL 10 MEQ TAB PO ONE ×2 (08:48→19:58)
[2017-04-04] MEDS: INSULIN REGULAR HUMAN 100 UNIT/ML SC SCH ×4 (08:50→23:05)
[2017-04-04] MEDS: APIXABAN 5 MG TAB PO SCH ×2 (10:28→20:08)
[2017-04-04] MEDS: METOPROLOL TARTRATE 25 MG TAB PO SCH ×2 (10:29→20:07)
[2017-04-04] MEDS: AMIODARONE HCL 200 MG TAB PO SCH ×2 (10:29→20:06)
[2017-04-04] MEDS: MULTIVITAMINS 1 EACH TAB PO SCH (10:29)
[2017-04-04] MEDS: HYDROCORTISONE 100 MG/2 ML VIAL IVP SCH ×2 (10:30→20:09)
--- NOTE | 2017-04-04 17:27 | HOSPPROG ---
Hospitalist Progress Note Assessment/Plan: DIAGNOSES: -acute septic shock with multi system organ failure and requiring multiple pressor support -acute renal failure -acute shock liver -acute respiratory failure requiring mechanical ventilation -hyperglycemia after high-dose steroid, suspect underlying type 2 diabetes an obese patient -hyperkalemia, improved after treatment with medication -rapid atrial fibrillation, converted to sinus rhythm with electrocardioversion on newly started amiodarone Overall he has made fairly good progress from his acute illness, however remains with exertional dyspnea and fatigue and not quite doing well enough to go home yet. I think if he continues walking in the hallway few times tonight he may begin home tomorrow the next day. Today engaged with the patient and his at the bedside in reviewing conversation regarding end of life care decision making. They have living Barry better filled out and these are very helpful however the patient and his really did not understand the all of the questions and answers that clearly as this was done at a bank in [place]. There was really no medical discussion with the medical person at all. In addition in his Living Will he has chosen do not resuscitate in the event of coma or terminal illness but there is no choice listed anywhere in his paperwork for resuscitation choice in other circumstances. Nor did the patient or his clearly understand the questions or other issues around resuscitation or other medical measures very clearly. Reviewed all of this in great detail so that they were clear on all other options and the implications and circumstances under which the questions were arise. His living will is accurate and does not be change but he will need a most or other form to use for clarification of his choice for resuscitation under situations other than terminal illness or irreversible coma. His choices under situation aside from terminal illness or irreversible coma include full resuscitation in the event of ie full cor. His choices for situations of a terminal illness or irreversible coma include do not resuscitate and limitations on many other things and in fact really dictate that we choose comfort care Plans: Follow cultures closely; as no staff will stop vanco now, continue Rocephin to cover g negatives or strep increase activity as able; fall risk precautions follow renal and liver fxn for continue improvement Total visit time today at bedside greater than 65 minutes, greater than 50% of that was spent in discussion with the patient and his as above SUBJECTIVE: Remains weak but a bit stronger and is ambulating in the hallway. However he does get extremely winded and has to stop and catch his breath while walking. No chills or sweats no other new symptoms, eating well OBJECTIVE Vitals reviewed: stable without fever Exam: alert oriented very weak skin warm dry color ok, currently good capillary refill in fingers resps relaxed on nc O2 lungs clear BSs heart regular abd soft nondistended nontender, bowel sounds present limbs warm, some edema still present PICC site ok Objective: Vital Signs Temp Pulse Resp BP Pulse Ox 36.7 C 74 18 129/84 H 94 04/04/17 11:44 04/04/17 11:44 04/04/17 11:44 04/04/17 11:44 04/04/17 11:44 Laboratory Results 04/04/17 05:17 04/04/17 05:17 04/03/17 04/04/17 04/05/17 06:59 06:59 06:59 Intake Total 1484.4 1400 Output Total 1385 700 Balance 99.4 700 PT 18.1 SEC (12.0-15.0) H 03/31/17 12:35 INR 1.50 (0.83-1.16) H 03/31/17 12:35 - Time Spent With Patient Time Spent with Patient: greater than 35 minutes Time Spent with Patient: Greater than 35 minutes spent on this patients care, greater than 50% of time spent counseling, educating, and coordinating care regarding the above mentioned plan. ICD10 Worksheet Patient Problems: Problems Problem Status Onset Fever Acute Myelodysplastic syndrome Acute
--- NOTE | 2017-04-04 18:35 | ASMTCMCOM ---
CM Note CM Note Notes: PT/OT recommending HHC. Met w/pt and ; they live in patio home. pt refuses HHC at this time, does not feel he needs it. Pt's , Steph, will be around to help him. I told them to let us know if they change their mind. CM available if needed. D/W RN. Date Signed: 04/04/2017 06:34 PM Electronically Signed By:Rosario Longo RN
[2017-04-04] MEDS: CYANO/VITAMIN B12 100 MCG TAB PO SCH (18:47)
[2017-04-04 19:18] LABS: POTASSIUM 3.7 mEq/L (3.5-5.2)
[2017-04-04] MEDS: MAGNESIUM OXIDE 400 MG TAB PO SCH (20:05)
[2017-04-04] MEDS: MELATONIN 3 MG TAB PO SCH (20:06)
[2017-04-05 03:52] VITALS: RESP 18; TEMP 98.2; O2SAT 100
[2017-04-05] MEDS: LEVOTHYROXINE 125 MCG TAB PO SCH (05:36)
[2017-04-05 06:17] LABS: ALBUMIN 2.6 g/dL (3.5-5.0); ANION GAP 7 mEq/L (8-16); CALCIUM 8.2 mg/dL (8.5-10.4); CARBON DIOXIDE 29 mEq/l (22-31); CHLORIDE 101 mEq/L (97-110); CREATININE 0.9 mg/dL (0.7-1.3); GLOMERULAR FILTRATION RATE > 60; GLUCOSE 99 mg/dL (70-100); POTASSIUM 3.9 mEq/L (3.5-5.2); SODIUM 137 mEq/L (134-144)
[2017-04-05] MEDS: AMIODARONE HCL 200 MG TAB PO SCH (09:06)
[2017-04-05] MEDS: CYANO/VITAMIN B12 100 MCG TAB PO SCH (09:06)
[2017-04-05] MEDS: APIXABAN 5 MG TAB PO SCH (09:06)
[2017-04-05] MEDS: METOPROLOL TARTRATE 25 MG TAB PO SCH (09:07)
[2017-04-05] MEDS: MULTIVITAMINS 1 EACH TAB PO SCH (09:07)
[2017-04-05] MEDS: HYDROCORTISONE 100 MG/2 ML VIAL IVP SCH (09:08)
[2017-04-05 09:10] VITALS: BP 141/93; PULSE 70
[2017-04-05] MEDS: INSULIN REGULAR HUMAN 100 UNIT/ML SC SCH (09:11)
[2017-04-05] MEDS ORDERED: PNEUMOC 13-VAL CONJ-DIP CRM/PF 0.5 ML SYR IM ONE (10:52)
--- NOTE | 2017-04-05 11:22 | GDS ---
[f rep st] DISCHARGE SUMMARY ALL DIAGNOSIS: 1. suspected septic shock with multiorgan failure which required pressor support. 2. Acute renal failure. 3. Acute shock liver. 4. Acute respiratory failure requiring intubation. 5. Hyperglycemia. 6. Hyperkalemia. 7. Atrial fibrillation with rapid ventricular response. HOSPITAL COURSE BY PROBLEM: 1. Suspected acute septic shock: He was quite hypotensive. Required vasopressor support. No clear source was ever was ever identified. He was initially treated with broad-spectrum antibiotics inclu ding vancomycin and Merrem. He was transitioned to Rocephin. He has been stable off pressor support for days. Will plan to complete a short course with oral Levaquin on discharge. 2. Atrial fibrillation with rapid ventricular response: He required cardioversion which was done wi thout a transesophageal echocardiogram, as he is on chronic anticoagulation. He successfully convert ed to normal sinus rhythm. He did require a second cardioversion as he had reverted to atrial fibril lation. For this reason, he was started on amiodarone drip which kept him in normal sinus rhythm. Brad everett will be discharged on 400 mg p.o. twice daily. He will need close followup with Dr. Robertson for this . 3. Hypotension: Suspected sepsis. However, over-diuresis likely playing a role. I have put his di uretics back to their previous dose before they were recently adjusted up. This includes torsemide 3 0 mg daily, Aldactone 25 mg daily. I will not continue his metolazone. I would recommend a small am ount of potassium supplementation which he has required for some time, though I warned him about the risks with spironolactone. He will need to have his potassium checked soon. 4. Vasculitis: He is on chronic suppressive steroids. He did receive stress-dose steroids as an in patient. He is treated by Dr. Patel. 5. Acute respiratory failure: This was likely due to obtundation. He did require intubation but hyaward s been extubated for a few days. He is currently stable on room air. FOLLOWUP: 1. Dr. Robertson for ongoing management of his electrolytes, renal function, diuretics. 2. Dr. Patel for ongoing management of his vasculitis. BILLING: I spent more than 30 minutes on the day of discharge coordinating care. /[id number]/MODL
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
== END 2017-04-05 12:49 | disposition home or self-care (01) | DRG 871 ==
LOC: CED 09:03 → CEDHOLD 09:55 → F2N 11:33 → F1N 04-03 21:20
PROVIDERS: ADMIT Internal Medicine; ATTEND Internal Medicine
DX: A41.9 Sepsis, unspecified organism (principal); R65.21 Severe sepsis with septic shock; N17.9 Acute kidney failure, unspecified; K72.00 Acute and subacute hepatic failure without coma; J96.00 Acute respiratory failure, unspecified whether with hypoxia or hypercapnia; R73.9 Hyperglycemia, unspecified; I48.0 Paroxysmal atrial fibrillation; E87.5 Hyperkalemia; D46.9 Myelodysplastic syndrome, unspecified; G47.33 Obstructive sleep apnea (adult) (pediatric); I12.9 Hypertensive chronic kidney disease with stage 1 through stage 4 chronic kidney disease, or unspecified chronic kidney disease; N18.3 Chronic kidney disease, stage 3 (moderate); Z79.01 Long term (current) use of anticoagulants; Z23 Encounter for immunization
CPT/HCPCS: 71010-PO; 80048-PO; 80076-PO; 82947-QW; 83605-PO; 84484-PO; 85025-PO; 85520-90; 85610-PO; 85730-PO; 96365; 97116-GP; 97161-GP; 97166-GO; 97530-GO; 97535-GO; C1751; G0009; G0472; G8987-GO-CL; G8988-GO-CI; J0282; J0696; J1160; J1335; J1642; J1644; J1815; J1940; J2185; J2250; J2704; J3010; J3370; P9041

== ENCOUNTER → 2017-12-10 | Outpatient (CLI) | payer OTHER | DX: I48.91 Unspecified atrial fibrillation (principal); I50.32 Chronic diastolic (congestive) heart failure; R06.02 Shortness of breath; R53.1 Weakness ==

== ENCOUNTER → 2018-03-11 | Outpatient (CLI) | payer OTHER | LOC: BHFA 15:00 | PROVIDERS: ATTEND Internal Medicine Cardiovascular Disease | DX: I48.91 Unspecified atrial fibrillation (principal); I50.32 Chronic diastolic (congestive) heart failure; R53.1 Weakness; R06.02 Shortness of breath ==

== ENCOUNTER 2018-09-13 18:29 | Inpatient (IN) | payer OTHER ==
[2018-09-13] MEDS ORDERED: NS 1,000 ML IV ONE ×2 (18:49→20:04)
--- NOTE | 2018-09-13 19:01 | EDPHY ---
HPI/HX/ROS/PE/MDM Narrative: CHIEF COMPLAINT: Diarrhea, fatigue, anemia HPI: This patient is a 78 year old male with past history including myelodysplastic syndrome, vasculitis, and atrial fibrillation. He arrives today with his family for evaluation of anemia and diarrhea ongoing for 3-4 months. Patient's at bedside reports that a CT completed in [place] in June showed colitis, and the patient's symptoms have never really resolved. He had a recent stool PCR with his primary care physician, Dr. Granados, which was negative. His states the patient has been increasingly fatigued recently and intermittently febrile. He has history of fever provoking atrial fibrillation. History of vasculitis as well, symptoms generally controlled with Prednisone and Tylenol. They deny any noted hematochezia, melena, or hematemesis. The patient endorses generalized abdominal pain. He is scheduled for followup with Dr. Morelos, GI specialist, next week. He denies chest pain, shortness of breath, vomiting, neurologic deficits, or other associated symptoms. REVIEW OF SYSTEMS: A comprehensive 10 system review of systems is otherwise negative aside from elements mentioned in the history of present illness and medical decision making. PMH: Myelodysplastic syndrome. Vasculitis, Atrial fibrillation. Mohs surgery L ear. Cholecystectomy. Sternal fracture. SOCIAL HISTORY: Oncologist Dr. Martinez. PHYSICAL EXAM: General: Pale. Patient is alert, in no acute distress. ENT:Eyes are normal to inspection. ENT inspection normal. Neck: Normal inspection. Full range of motion. Respiratory:No respiratory distress. Breath sounds normal bilaterally. Cardiovascular: Regular rate and rhythm. Strong peripheral pulses. Normal cap refill. Abdomen:The abdomen is nontender to palpation. There are no peritoneal signs. There are normal bowel sounds. Back: Normal to inspection. No tenderness to palpation. Skin: Pale. No rash. Warm and dry. Extremities: Normal appearance. Full range of motion. Neuro: Oriented x3. Normal motor function. Normal sensory function. ED Course: 78 y/o male with history of myelodysplastic syndrome, vasculitis, atrial fibrillation presents with four month history of diarrhea with recent known anemia, abdominal pain, and increasing fatigue. He is pale-appearing on exam. Plan for EKG, CT abdomen/pelvis, labs including CBC, chemistries, co-ag panel, UA. Patient is hypotensive at 87/70. Plan to administer 1L IV NS. EKG was ordered and interpreted by myself. Please see [employer] system for official reading. Atrial fibrillation. Laboratory studies consistent with anemia, dehydration. Plan to administer an additional 1L IV NS. Spoke with Dr. Kuhn, radiologist. CT shows evidence of mild colitis, otherwise negative for acute processes. 20:[address] Fine, hospitalist. She accepts admission for dehydration, atrial fibrillation. Plan to administer 10mg IV Diltiazem for rate control. - Data Points Imaging Results: Imaging Impressions Abdomen CT 09/13/18 19:37 Impression: 1. Diffuse diverticulosis, with suggestion of mild nonspecific colitis of the transverse and descending colon. 2. No CT evidence of appendicitis, abscess, or bowel obstruction. 3. Fat-containing bilateral inguinal hernias, left greater than right. 4. Atherosclerotic aorta, without aneurysm. Findings and recommendations discussed with Emergency Department physician, Ted Duong M.D., at 2040 hours, on September 13, 2018. Final report concurs with initial preliminary interpretation. Imaging: Discussed imaging studies w/ drain tile machine operator Radiologist Laboratory Results: Laboratory Results 09/13/18 18:55 09/13/18 18:55 09/13/18 09/13/18 09/13/18 20:05 18:55 18:55 WBC RBC Hgb Hct MCV MCH MCHC RDW Plt Count MPV Neut % (Auto) Lymph % (Auto) [place] % (Auto) Eos % (Auto) Baso % (Auto) Nucleat RBC Rel Count Absolute Neuts (auto) Absolute Lymphs (auto) Absolute Monos (auto) Absolute Eos (auto) Absolute Basos (auto) Absolute Nucleated RBC Immature Gran % Seg Neutrophils % Band Neutrophils % Lymphocytes % Monocytes % Eosinophils % Basophils % Metamyelocytes % Myelocytes % Promyelocytes % Blast Cells % Immature Gran # Absolute Seg Neuts Absolute Band Neuts Absolute Lymphocytes Absolute Monocytes Absolute Eosinophils Absolute Basophils Absolute Metamyelocyte Absolute Myelocytes Absolute Promyelocytes Absolute Plasma Cells Nucleated RBCs Absolute Blast Cells Plasma Cells % Platelet Estimate Polychromasia Oval Macrocytes Schistocytes Smear Review By PT 16.0 SEC H SEC (12.0-15.0) INR 1.34 H (0.83-1.16) APTT 46.1 SEC H SEC (23.0-38.0) Sodium 134 mEq/L L mEq/L (135-145) Potassium 4.4 mEq/L mEq/L (3.5-5.2) Chloride 98 mEq/L mEq/L (97-110) Carbon Dioxide 27 mEq/l mEq/l (22-31) Anion Gap 9 mEq/L mEq/L (6-14) BUN 13 mg/dL mg/dL (7-23) Creatinine 1.1 mg/dL mg/dL (0.7-1.3) Estimated GFR > 60 Glucose 148 mg/dL H mg/dL (70-100) Calcium 7.8 mg/dL L mg/dL (8.5-10.4) Urine Color PALE YELLOW Urine Appearance CLEAR Urine pH 9.0 H (5.0-7.5) Ur Specific [place] 1.003 (1.002-1.030) Urine Protein NEGATIVE (NEGATIVE) Urine Ketones NEGATIVE (NEGATIVE) Urine Blood 1+ H (NEGATIVE) Urine Nitrate NEGATIVE (NEGATIVE) Urine Bilirubin NEGATIVE (NEGATIVE) Urine Urobilinogen NEGATIVE EU EU (0.2-1.0) Ur Leukocyte Esterase NEGATIVE (NEGATIVE) Urine RBC 1-3 /hpf /hpf (0-3) Urine WBC 1-3 /hpf /hpf (0-3) Ur Epithelial Cells NONE SEEN /lpf /lpf (NONE-1+) Urine Glucose NEGATIVE (NEGATIVE) 09/13/18 18:55 WBC 11.05 10^3/uL H 10^3/uL (3.80-9.50) RBC 1.98 10^6/uL L 10^6/uL (4.40-6.38) Hgb 8.3 g/dL L g/dL (13.7-17.5) Hct 27.4 % L % (40.0-51.0) MCV 138.4 fL H fL (81.5-99.8) MCH 41.9 pg H pg (27.9-34.1) MCHC 30.3 g/dL L g/dL (32.4-36.7) RDW 16.7 % H % (11.5-15.2) Plt Count 228 10^3/uL 10^3/uL (150-400) MPV 9.5 fL fL (8.7-11.7) Neut % (Auto) Not Reported Lymph % (Auto) Not Reported Webster % (Auto) Not Reported Eos % (Auto) Not Reported Baso % (Auto) Not Reported Nucleat RBC Rel Count Not Reported Absolute Neuts (auto) Not Reported Absolute Lymphs (auto) Not Reported Absolute Monos (auto) Not Reported Absolute Eos (auto) Not Reported Absolute Basos (auto) Not Reported Absolute Nucleated RBC Not Reported Immature Gran % Not Reported Seg Neutrophils % 74.7 % % Band Neutrophils % 10.1 % % Lymphocytes % 6.1 % % Monocytes % 7.1 % % Eosinophils % 0.0 % % Basophils % 0.0 % % Metamyelocytes % 0.0 % % Myelocytes % 1.0 % % Promyelocytes % 1.0 % % Blast Cells % 0.0 % % Immature Gran # Not Reported Absolute Seg Neuts 8.25 10^3/uL H 10^3/uL (1.70-6.50) Absolute Band Neuts 1.12 10^3/uL H 10^3/uL (0.00-0.70) Absolute Lymphocytes 0.67 10^3/uL L 10^3/uL (1.00-3.00) Absolute Monocytes 0.78 10^3/uL 10^3/uL (0.30-0.80) Absolute Eosinophils 0.00 10^3/uL L 10^3/uL (0.03-0.40) Absolute Basophils 0.00 10^3/uL L 10^3/uL (0.02-0.10) Absolute Metamyelocyte 0.00 10^3/mL 10^3/mL (0.00-0.00) Absolute Myelocytes 0.11 10^3/mL H 10^3/mL (0.00-0.00) Absolute Promyelocytes 0.11 10^3/uL H 10^3/uL (0.00-0.00) Absolute Plasma Cells 0.00 10^3/uL 10^3/uL (0.00-0.00) Nucleated RBCs 1.0 /100 WBC H /100 WBC (0-0) Absolute Blast Cells 0.00 10^3/uL 10^3/uL (0.00-0.00) Plasma Cells % 0.0 % % Platelet Estimate ADEQUATE (ADEQ) Polychromasia 1+ H Oval Macrocytes 3+ H Schistocytes 1+ H Smear Review By Pending PT INR APTT Sodium Potassium Chloride Carbon Dioxide Anion Gap BUN Creatinine Estimated GFR Glucose Calcium Urine Color Urine Appearance Urine pH Ur Specific [place] Urine Protein Urine Ketones Urine Blood Urine Nitrate Urine Bilirubin Urine Urobilinogen Ur Leukocyte Esterase Urine RBC Urine WBC Ur Epithelial Cells Urine Glucose Medications Given: Discontinued Medications Diltiazem HCl (Cardizem 25 Mg/5 Ml Vial) 5 mg IVP EDNOW ONE Stop: 09/13/18 20:56 Last Admin: 09/13/18 21:04 Dose: 5 mg Sodium Chloride (Ns) 1,000 mls @ 0 mls/hr IV EDNOW ONE; Wide Open PRN Reason: Protocol Stop: 09/13/18 18:50 Last Admin: 09/13/18 19:18 Dose: 1,000 mls Sodium Chloride (Ns) 1,000 mls @ 0 mls/hr IV EDNOW ONE; Wide Open PRN Reason: Protocol Stop: 09/13/18 20:05 Last Admin: 09/13/18 20:28 Dose: 1,000 mls General Time Seen by Provider: 09/13/18 18:48 Initial Vital Signs: Initial Vital Signs Temperature (C) 36.6 C 09/13/18 18:30 Heart Rate 127 H 09/13/18 18:30 Respiratory Rate 16 09/13/18 18:30 Blood Pressure 87/70 L 09/13/18 18:30 O2 Sat (%) 96 09/13/18 18:30 O2 Delivery Mode Room Air Allergies/Adverse Reactions: lisinopril [From Zestril] Allergy (Severe, Verified 03/31/17 09:06) Swelling/neck,face,throat codeine Allergy (Verified 03/31/17 09:06) neck swelling minocycline Allergy (Verified 09/13/18 21:36) Other-Enter Comments Home Medications: Medication Instructions Recorded Acetaminophen [Tylenol ES 500 mg 1,000 mg PO Q6 PRN 03/31/17 (*)] Cyanocobalamin [Vitamin B12 (*)] 100 mcg PO DAILY 03/31/17 LORazepam [Ativan (*)] 1 mg PO TID PRN 03/31/17 Metoprolol Tartrate [Lopressor 25 12.5 mg PO BID 03/31/17 mg (*)] Multivitamins [Multivitamin (*)] 1 each PO DAILY 03/31/17 Ranitidine HCl [Zantac] 150 mg PO BID 03/31/17 Terazosin HCl 10 mg PO HS 03/31/17 Tetracycline HCl 250 mg PO TID PRN #0 03/31/17 predniSONE 10 mg PO DAILY 03/31/17 Potassium Cl [Klor-Con 20 meq (*)] 20 meq PO DAILY #30 tab 04/05/17 Apixaban [Eliquis] 2.5 mg PO BID 09/13/18 Diphenoxylate HCl/Atrop Sulf 2 tab PO QID PRN 09/13/18 [Lomotil Tab (*)] Folic Acid [Folic Acid 1 MG (*)] 1 mg PO DAILY 09/13/18 Herbals/Supplements -Info Only 1 ea PO DAILY 09/13/18 Levothyroxine [Synthroid 112 mcg 112 mcg PO DAILY06 09/13/18 (*)] Multivitamins [Multivitamin (*)] 1 each PO DAILY 09/13/18 predniSONE 5 mg PO DAILY@15 09/13/18 Departure - Departure Disposition: [facility] Inpatient Acute Clinical Impression: Dehydration Atrial fibrillation Qualifiers: Atrial fibrillation type: paroxysmal Qualified Code(s): I48.0 - Paroxysmal atrial fibrillation Condition: Fair Report Scribed for: Ted Duong Report Scribed by: Berenice Sanchez Date of Report: 09/13/18 Time of Report: 20:53 Physician Review and Approval Statement: Portions of this note were transcribed by an ED scribe. I personally performed the history, physical exam, and medical decision making; and confirm the accuracy of the information in the transcribed note.
[2018-09-13 19:07] LABS: PLATELET COUNT 228 10^3/uL (150-400)
[2018-09-13 19:11] LABS: INR 1.34 (0.83-1.16)
[2018-09-13] MEDS ORDERED: DILTIAZEM 25 MG/5 ML VIAL IVP ONE (20:55)
[2018-09-13] MEDS ORDERED: ONDANSETRON DISINTEGRATING 4 MG TAB PO PRN (21:33)
[2018-09-13] MEDS ORDERED: ONDANSETRON 4 MG/2 ML VIAL IVP PRN (21:33)
[2018-09-13] MEDS ORDERED: HYDROmorphONE/DILAUDID 1 MG/ML INJ IVP PRN (21:33)
[2018-09-13] MEDS ORDERED: TETRACYCLINE HCL 250 MG PO PRN (21:37)
[2018-09-13] MEDS ORDERED: DIPHENOXYLATE/ATROPINE LOMOTIL 1 TAB PO PRN (21:37)
[2018-09-13] MEDS ORDERED: ACETAMINOPHEN 500 MG TAB PO PRN (21:37)
[2018-09-13] MEDS: NS 1,000 ML IV SCH (22:23)
[2018-09-13] MEDS: METOPROLOL TARTRATE 25 MG TAB PO SCH (22:29)
[2018-09-13] MEDS: oxyCODONE IR 5 MG TAB PO PRN (22:29)
[2018-09-13] MEDS: APIXABAN 2.5 MG TAB PO SCH (22:30)
--- NOTE | 2018-09-13 22:44 | PDGENHP ---
History and Physical - Chief Complaint fatigue, diarrhea - History of Present Illness 78 yo M with hx of a fib, MDS and refractory anemia, vasculitis involving the skin for which he has been on immune suppressants, most recently humira, as well as several months of severe diarrhea with recurrent dehydration and weakness. Patient was hospitalized recently in [place] for the same issues at which time an extensive w/u was undertaken including colonoscopy which was negative. He was seen by his PCP yesterday for this and GI pathogen panel obtained also negative. He has f/u established with Dr. Morelos for next week. He notes that he has diarrhea all day and all night, last night it kept him up all night, he describes it as extremely high volume--non bloody, occasional mucuc. He has lost 30 pounds over the last 3 months. He is extremely fatigued and feels he cannot take care of himself in this situation any longer. He initially thought the diarrhea may be due to the humira and had a trial off of it but no change in the stool output and while off of humira he began to have fevers and concerns that his vasculitis was returning so he resumed it. History Information - Allergies/Home Medication List Allergies/Adverse Reactions: lisinopril [From Zestril] Allergy (Severe, Verified 03/31/17 09:06) Swelling/neck,face,throat codeine Allergy (Verified 03/31/17 09:06) neck swelling minocycline Allergy (Verified 09/13/18 21:36) Other-Enter Comments Home Medications: Acetaminophen [Tylenol ES 500 mg (*)] 1,000 mg PO Q6 PRN 03/31/17 [Last Taken Unknown] Cyanocobalamin [Vitamin B12 (*)] 100 mcg PO DAILY 03/31/17 [Last Taken 09/13/18] LORazepam [Ativan (*)] 1 mg PO TID PRN 03/31/17 [Last Taken 09/12/18] Metoprolol Tartrate [Lopressor 25 mg (*)] 12.5 mg PO BID 03/31/17 [Last Taken ] Multivitamins [Multivitamin (*)] 1 each PO DAILY 03/31/17 [Last Taken Unknown] Ranitidine HCl [Zantac] 150 mg PO BID 03/31/17 [Last Taken 09/13/18 AM] Terazosin HCl 10 mg PO HS 03/31/17 [Last Taken Unknown] Tetracycline HCl 250 mg PO TID PRN #0 03/31/17 [Last Taken Unknown] predniSONE 10 mg PO DAILY 03/31/17 [Last Taken Unknown] Apixaban [Eliquis] 2.5 mg PO BID 09/13/18 [Last Taken 09/13/18 AM] Diphenoxylate HCl/Atrop Sulf [Lomotil Tab (*)] 2 tab PO QID PRN 09/13/18 [Last Taken Unknown] Folic Acid [Folic Acid 1 MG (*)] 1 mg PO DAILY 09/13/18 [Last Taken Unknown] Herbals/Supplements -Info Only 1 ea PO DAILY 09/13/18 [Last Taken Unknown] Levothyroxine [Synthroid 112 mcg (*)] 112 mcg PO DAILY06 09/13/18 [Last Taken ] Multivitamins [Multivitamin (*)] 1 each PO DAILY 09/13/18 [Last Taken Unknown] predniSONE 5 mg PO DAILY@15 09/13/18 [Last Taken Unknown] I have personally reviewed and updated: family history, medical history, social history, surgical history - Past Medical History atrial fibrillation (paroxysmal), cancer (MDS with refractory anemia), CHF ( diastolic) Additional medical history: small vessel vasculitis involving the skin-- followed by Dr. Patel of [facility]. BPH. sweets disease. CKD. ANNA MARIE - Surgical History Additional surgical history: foot and knee surgery - Family History Positive for: cancer (daughter with colon cancer) - Social History Smoking Status: Former smoker Alcohol Use: Occasionally Drug Use: None Additional social history: , lives part of year in [place] Review of Systems Review of Systems: ROS: 10pt was reviewed & negative except for what was stated in HPI & below Physical Exam Physical Exam: Temp Pulse Resp BP Pulse Ox 36.3 C 121 H 20 108/82 H 98 09/13/18 22:15 09/13/18 22:15 09/13/18 22:15 09/13/18 22:15 09/13/18 22:15 Constitutional: chronically ill appearing, uncomfortable Eyes: PERRL, anicteric sclera Ears, Nose, Mouth, Throat: hearing normal, dry mucous membranes Cardiovascular: irregularly irregular, tachycardia, edema Respiratory: no respiratory distress, reduced air movement Gastrointestinal: normoactive bowel sounds, soft, non-tender abdomen Genitourinary: no bladder tenderness Skin: warm, other (pale) Musculoskeletal: full muscle strength Neurologic: AAOx3 Psychiatric: interacting appropriately, not anxious, not encephalopathic Lab Data & Imaging Review 09/13/18 18:55 09/13/18 18:55 WBC 11.05 10^3/uL (3.80-9.50) H 09/13/18 18:55 RBC 1.98 10^6/uL (4.40-6.38) L 09/13/18 18:55 Hgb 8.3 g/dL (13.7-17.5) L 09/13/18 18:55 Hct 27.4 % (40.0-51.0) L 09/13/18 18:55 MCV 138.4 fL (81.5-99.8) H 09/13/18 18:55 MCH 41.9 pg (27.9-34.1) H 09/13/18 18:55 MCHC 30.3 g/dL (32.4-36.7) L 09/13/18 18:55 RDW 16.7 % (11.5-15.2) H 09/13/18 18:55 Plt Count 228 10^3/uL (150-400) 09/13/18 18:55 MPV 9.5 fL (8.7-11.7) 09/13/18 18:55 Neut % (Auto) Not Reported 09/13/18 18:55 Lymph % (Auto) Not Reported 09/13/18 18:55 Petroleum % (Auto) Not Reported 09/13/18 18:55 Eos % (Auto) Not Reported 09/13/18 18:55 Baso % (Auto) Not Reported 09/13/18 18:55 Nucleat RBC Rel Count Not Reported 09/13/18 18:55 Absolute Neuts (auto) Not Reported 09/13/18 18:55 Absolute Lymphs (auto) Not Reported 09/13/18 18:55 Absolute Monos (auto) Not Reported 09/13/18 18:55 Absolute Eos (auto) Not Reported 09/13/18 18:55 Absolute Basos (auto) Not Reported 09/13/18 18:55 Absolute Nucleated RBC Not Reported 09/13/18 18:55 Immature Gran % Not Reported 09/13/18 18:55 Seg Neutrophils % 74.7 % 09/13/18 18:55 Band Neutrophils % 10.1 % 09/13/18 18:55 Lymphocytes % 6.1 % 09/13/18 18:55 Monocytes % 7.1 % 09/13/18 18:55 Eosinophils % 0.0 % 09/13/18 18:55 Basophils % 0.0 % 09/13/18 18:55 Metamyelocytes % 0.0 % 09/13/18 18:55 Myelocytes % 1.0 % 09/13/18 18:55 Promyelocytes % 1.0 % 09/13/18 18:55 Blast Cells % 0.0 % 09/13/18 18:55 Immature Gran # Not Reported 09/13/18 18:55 Absolute Seg Neuts 8.25 10^3/uL (1.70-6.50) H 09/13/18 18:55 Absolute Band Neuts 1.12 10^3/uL (0.00-0.70) H 09/13/18 18:55 Absolute Lymphocytes 0.67 10^3/uL (1.00-3.00) L 09/13/18 18:55 Absolute Monocytes 0.78 10^3/uL (0.30-0.80) 09/13/18 18:55 Absolute Eosinophils 0.00 10^3/uL (0.03-0.40) L 09/13/18 18:55 Absolute Basophils 0.00 10^3/uL (0.02-0.10) L 09/13/18 18:55 Absolute Metamyelocyte 0.00 10^3/mL (0.00-0.00) 09/13/18 18:55 Absolute Myelocytes 0.11 10^3/mL (0.00-0.00) H 09/13/18 18:55 Absolute Promyelocytes 0.11 10^3/uL (0.00-0.00) H 09/13/18 18:55 Absolute Plasma Cells 0.00 10^3/uL (0.00-0.00) 09/13/18 18:55 Nucleated RBCs 1.0 /100 WBC (0-0) H 09/13/18 18:55 Absolute Blast Cells 0.00 10^3/uL (0.00-0.00) 09/13/18 18:55 Plasma Cells % 0.0 % 09/13/18 18:55 Platelet Estimate ADEQUATE (ADEQ) 09/13/18 18:55 Polychromasia 1+ H 09/13/18 18:55 Oval Macrocytes 3+ H 09/13/18 18:55 Schistocytes 1+ H 09/13/18 18:55 PT 16.0 SEC (12.0-15.0) H 09/13/18 18:55 INR 1.34 (0.83-1.16) H 09/13/18 18:55 APTT 46.1 SEC (23.0-38.0) H 09/13/18 18:55 Sodium 134 mEq/L (135-145) L 09/13/18 18:55 Potassium 4.4 mEq/L (3.5-5.2) 09/13/18 18:55 Chloride 98 mEq/L (97-110) 09/13/18 18:55 Carbon Dioxide 27 mEq/l (22-31) 09/13/18 18:55 Anion Gap 9 mEq/L (6-14) 09/13/18 18:55 BUN 13 mg/dL (7-23) 09/13/18 18:55 Creatinine 1.1 mg/dL (0.7-1.3) 09/13/18 18:55 Estimated GFR > 60 09/13/18 18:55 Glucose 148 mg/dL (70-100) H 09/13/18 18:55 Calcium 7.8 mg/dL (8.5-10.4) L 09/13/18 18:55 Urine Color PALE YELLOW 09/13/18 20:05 Urine Appearance CLEAR 09/13/18 20:05 Urine pH 9.0 (5.0-7.5) H 09/13/18 20:05 Ur Specific Leiter 1.003 (1.002-1.030) 09/13/18 20:05 Urine Protein NEGATIVE (NEGATIVE) 09/13/18 20:05 Urine Ketones NEGATIVE (NEGATIVE) 09/13/18 20:05 Urine Blood 1+ (NEGATIVE) H 09/13/18 20:05 Urine Nitrate NEGATIVE (NEGATIVE) 09/13/18 20:05 Urine Bilirubin NEGATIVE (NEGATIVE) 09/13/18 20:05 Urine Urobilinogen NEGATIVE EU (0.2-1.0) 09/13/18 20:05 Ur Leukocyte Esterase NEGATIVE (NEGATIVE) 09/13/18 20:05 Urine RBC 1-3 /hpf (0-3) 09/13/18 20:05 Urine WBC 1-3 /hpf (0-3) 09/13/18 20:05 Ur Epithelial Cells NONE SEEN /lpf (NONE-1+) 09/13/18 20:05 Urine Glucose NEGATIVE (NEGATIVE) 09/13/18 20:05 Visualized and Interpreted imaging results: Yes Interpretation: abd CT: non specific colitis transverse and descending colon Visualized and Interpreted EKG results: Yes EKG additional interpertation: a fib w/rvr Assessment & Plan Assessment: Atrial fibrillation (Acute) Dehydration (Acute) 78 yo M with PMH that includes MDS with refractory anemia, paroxysmal a fib, vasculitis on chronic immune suppression as well as diarrhea x 3 months with associated 30 pound weight loss presenting with weakness/dehydration and a fib w /rvr # a fib w/rvr: in the setting of volume depletion due to diarrhea, BP on the low end presumably also due to volume depletion, given small dose of dilt in ER , will resume home dose of metoprolol and eliquis and continue IVF and monitor on telemetry, serial trops ordered but suspect due to volume rather than ischemia etc. Has required CV in the past, cardiology consulted. # secretory diarrhea: patient describing diarrhea that occurs all day and all night with associated significant weight loss and unclear etiology. Has had recent hospitalization for same in [place] at which time colonoscopy was performed but unclear what other testing--will request records from that hospitalization. GI pathogen panel performed yesterday negative. Depending on what testing was performed in [place] (records requested but not yet received) consider urine 5-HIAA, histamine, gastrin, calcitonin, VIP, somatostatin, ACTH, SPEP etc testing. Have not consulted GI but if no discharge in am, IP GI consult warranted # MDS: with refractory anemia followed by oncology Dr. 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 Patel, has been on humira with concerns it could be contributing to his diarrhea as well as prednisone which will be continued # chronic diastolic heart failure: without e/o acute exacerbation currently, followed by Dr. Robertson # CKD: with baseline creatinine of 1.1, currently at baseline # IP status, will require > 48 hours stay likely for eval/mgmt of above Patient new to my care. Old records reviewed and summarized as above. Further hx obtained from present at bedside. Care plan reviewed with ER doctor as above.
[2018-09-14] MEDS: LORazepam 1 MG TAB PO PRN ×3 (00:51→20:55)
[2018-09-14] MEDS: oxyCODONE IR 5 MG TAB PO PRN ×2 (01:46→20:59)
[2018-09-14] MEDS: HYDROCODONE/APAP 5/325 TAB PO PRN ×2 (04:22→14:48)
[2018-09-14] MEDS: LEVOTHYROXINE 112 MCG TAB PO SCH (04:22)
[2018-09-14 04:37] LABS: PLATELET COUNT 178 10^3/uL (150-400)
[2018-09-14] MEDS ORDERED: MULTIVITAMINS 1 EACH TAB PO SCH (09:00)
[2018-09-14] MEDS: FAMOTIDINE 20 MG TAB PO SCH ×2 (09:21→20:52)
[2018-09-14] MEDS: predniSONE 10 MG TAB PO SCH (09:21)
[2018-09-14] MEDS: POTASSIUM CL 20 MEQ TAB PO SCH (09:21)
[2018-09-14] MEDS: APIXABAN 2.5 MG TAB PO SCH ×2 (09:22→20:51)
[2018-09-14] MEDS: CYANO/VITAMIN B12 100 MCG TAB PO SCH (09:22)
[2018-09-14] MEDS: MULTIVITAMINS 1 EACH TAB PO SCH (09:22)
[2018-09-14] MEDS: FOLIC ACID 1 MG TAB PO SCH (09:22)
[2018-09-14] MEDS: METOPROLOL TARTRATE 25 MG TAB PO SCH ×3 (09:22→20:51)
--- NOTE | 2018-09-14 10:30 | PDMN ---
Medical Necessity Medical necessity: MCG MGSIC Systemic or Infectious Condition: 78 yo w/ extreme fatigue, severe diarrhea w/ 30lb weight loss over last 3 months. Pt w/ recent hospitalization in [place] for same s/sx. Eval reveals afib w/ rvr in setting of volume depletion due to diarrhea. Hypotensive SBP 80s. H/H 12/31.6. Na+134, Ca +7.1. IP status for med nec MGSIC w/ hemodynamic instability, cardiac arrythmia , and severe dehydration in setting of immunocompromised pt (on Humira). Anticipate>2MN for IVF, cont tele monitoring, PT/OT, cardio consult, and further dx testing. Hx of a fib, MDS and refractory anemia, dCHF, CKD, vasculitis involving the skin for which he has been on immune suppressants, most recently humira, as well as several months of severe diarrhea with recurrent dehydration and weakness.
--- NOTE | 2018-09-14 11:50 | HOSPPROG ---
Hospitalist Progress Note Assessment/Plan: 78 yo M with h/o MDS with refractory anemia, paroxysmal a fib, vasculitis on chronic immune suppression as well as diarrhea x 3 months with associated 30 pound weight loss presenting with weakness/dehydration and a fib w/rvr # a fib w/rvr: in the setting of volume depletion due to diarrhea -cont metoprolol and eliquis -monitor on telemetry, has required cardioversion in the past # volume depletion - cont IVF's # NSVT - brief 17 beat run, asymptomatic -increase metoprolol to 12.5 TID # chronic diarrhea: significant weight loss noted, unclear etiology. Has had recent hospitalization for same in [place] at which time colonoscopy was performed but unclear what other testing-- records have been requested. GI PCR neg. -discussed with GI who recommends close outpt f/u for further w/u -prn imodium # MDS: with refractory anemia followed by oncology Dr. 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 Patel, has been on humira with concerns it could be contributing to his diarrhea -cont prednisone # chronic diastolic heart failure: without e/o acute exacerbation currently, followed by Dr. Robertson # CKD: with baseline creatinine of 1.1, currently at baseline # Dispo - cont inpt Patient new to my care. Old records reviewed and summarized as above. Subjective: Pt feels weak, tired. Still has abdominal pain. Diarrhea occurred again this am, but he acknowledges may be a bit more formed. No fevers. Taking some po. Objective: Vital Signs Temp Pulse Resp BP Pulse Ox 36.3 C 113 H 10 L 104/79 97 09/14/18 11:35 09/14/18 11:35 09/14/18 11:35 09/14/18 11:35 09/14/18 11:35 Laboratory Results 09/14/18 03:42 09/14/18 03:42 09/13/18 09/14/18 09/15/18 05:59 05:59 05:59 Intake Total 2024 Output Total 300 Balance 1725 PT 16.0 SEC (12.0-15.0) H 09/13/18 18:55 INR 1.34 (0.83-1.16) H 09/13/18 18:55 - Physical Exam Constitutional: no apparent distress Eyes: PERRL Ears, Nose, Mouth, Throat: moist mucous membranes Cardiovascular: irregularly irregular Respiratory: no respiratory distress, clear to auscultation Gastrointestinal: normoactive bowel sounds, other (soft, mild TTP, no r/r/g) Skin: warm Musculoskeletal: full muscle strength Neurologic: AAOx3 Psychiatric: interacting appropriately ICD10 Worksheet Patient Problems: Problems Problem Status Onset Atrial fibrillation Acute Dehydration Acute Fever Acute Myelodysplastic syndrome Acute
--- NOTE | 2018-09-14 12:15 | CPEKG ---
Test Reason : OPEN Blood Pressure : / mmHG Vent. Rate : 125 BPM Atrial Rate : 000 BPM P-R Int : 133 ms QRS Dur : 084 ms QT Int : 321 ms P-R-T Axes : 248 088 014 degrees QTc Int : 463 ms Atrial fibrillation Borderline right axis deviation Low voltage, extremity leads Confirmed by Piotr Piper ([id number]) on 09/14/2018 12:15:17 PM Referred By: Isis Fine Confirmed By:Piotr Piper
[2018-09-14] MEDS: predniSONE 5 MG TAB PO SCH (15:22)
--- NOTE | 2018-09-14 15:42 | ASMTCMCOM ---
CM Note CM Note Notes: 09/14/2018 Case Management Note Discussed pt during rounds this morning. Pt admitted for dehydration and afib. Brendan present for rounds. Brendan can be reached at [phone]. Pt recently returned from trip to [place]. There are therapy evals pending. Case Management d/c poc: to be determined. Case Management to follow. Date Signed: 09/14/2018 03:42 PM Electronically Signed By:Rajani Zamarripa RN
[2018-09-14] MEDS: TERAZOSIN HCL 5 MG CAP PO SCH (20:50)
[2018-09-15] MEDS ORDERED: METOPROLOL TARTRATE 25 MG TAB PO ONE (02:23)
[2018-09-15] MEDS ORDERED: NS 500 ML IV ONE ×2 (02:23→06:44)
[2018-09-15 04:27] LABS: PLATELET COUNT 174 10^3/uL (150-400)
[2018-09-15] MEDS: LEVOTHYROXINE 112 MCG TAB PO SCH (06:35)
[2018-09-15] MEDS: NS 1,000 ML IV SCH (07:45)
[2018-09-15] MEDS: POTASSIUM CL 20 MEQ TAB PO SCH (09:38)
[2018-09-15] MEDS: MULTIVITAMINS 1 EACH TAB PO SCH (09:38)
[2018-09-15] MEDS: APIXABAN 2.5 MG TAB PO SCH ×2 (09:39→20:05)
[2018-09-15] MEDS: METOPROLOL TARTRATE 25 MG TAB PO SCH ×2 (09:39→11:15)
[2018-09-15] MEDS: FAMOTIDINE 20 MG TAB PO SCH ×2 (09:39→20:05)
[2018-09-15] MEDS: LOPERAMIDE HCL 2 MG CAP PO PRN (09:39)
[2018-09-15] MEDS: predniSONE 10 MG TAB PO SCH (09:39)
[2018-09-15] MEDS: CYANO/VITAMIN B12 100 MCG TAB PO SCH (09:39)
[2018-09-15] MEDS: FOLIC ACID 1 MG TAB PO SCH (09:39)
--- NOTE | 2018-09-15 10:41 | HOSPPROG ---
Hospitalist Progress Note Assessment/Plan: 78 yo M with h/o MDS with refractory anemia, paroxysmal a fib, vasculitis on chronic immune suppression as well as diarrhea x 3 months with associated 30 pound weight loss presenting with weakness/dehydration and a fib w/rvr # a fib w/rvr: in the setting of volume depletion due to diarrhea, poor rate control this am despite increased metoprolol (seems to be causing marked fatigue ) -cardiology consulted, will change from metoprolol to diltiazem CD 120 mg daily, also added additional dose of short acting dilt 30 mg x1 -cont eliquis for cva prevention -monitor on telemetry, has required cardioversion in the past, will keep npo at midnight # volume depletion - cont IVF's # NSVT - brief 17 beat run, asymptomatic -BB changed to CCB as above # chronic diarrhea: significant weight loss noted, unclear etiology. Has had recent hospitalization for same in [place] at which time colonoscopy was performed with no reported abnormalities, records pending. GI PCR neg here. Has had ~10 watery BM's in past 24 hrs. -discussed with GI who recommends close outpt f/u for further w/u, but may need to reconsult GI given ongoing high volume diarrhea -prn imodium -check hemoccult stool # MDS: with refractory anemia followed by oncology Dr. 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 Patel, has been on humira with concerns it could be contributing to his diarrhea -cont prednisone # chronic diastolic heart failure: without e/o acute exacerbation currently, followed by Dr. Robertson # CKD: with baseline creatinine of 1.1, currently at baseline # Dispo - cont inpt Patient new to my care. Old records reviewed and summarized as above. Subjective: Pt is very sleepy and weak this am. Denies CP or SOB. Still has some abdominal discomfort and RN reports >5 watery BM's overnight, with 5 loose stools throughout the day yesterday. No BRBPR. No fevers. Objective: Vital Signs Temp Pulse Resp BP Pulse Ox 36.7 C 133 H 20 127/85 H 93 04/07/19 08:00 09/15/18 09:39 09/15/18 08:00 09/15/18 09:39 09/15/18 08:00 Laboratory Results 09/15/18 03:42 09/14/18 03:42 09/14/18 09/15/18 09/16/18 05:59 05:59 05:59 Intake Total 2025 3725 Output Total 300 200 75 Balance 1725 3525 -75 PT 16.0 SEC (12.0-15.0) H 09/13/18 18:55 INR 1.34 (0.83-1.16) H 09/13/18 18:55 - Physical Exam Constitutional: no apparent distress Eyes: PERRL Ears, Nose, Mouth, Throat: moist mucous membranes Cardiovascular: regular rate and rhythym Respiratory: no respiratory distress, clear to auscultation Gastrointestinal: normoactive bowel sounds, soft, non-tender abdomen Skin: warm Musculoskeletal: full muscle strength Neurologic: AAOx3 Psychiatric: interacting appropriately ICD10 Worksheet Patient Problems: Problems Problem Status Onset Atrial fibrillation Acute Dehydration Acute Fever Acute Myelodysplastic syndrome Acute
--- NOTE | 2018-09-15 11:41 | PDCARCONS ---
History Information - Allergies/Home Medication List Allergies/Adverse Reactions: lisinopril [From Zestril] Allergy (Severe, Verified 03/31/17 09:06) Swelling/neck,face,throat codeine Allergy (Verified 03/31/17 09:06) neck swelling minocycline Allergy (Verified 09/13/18 21:36) Other-Enter Comments Home Medications: Acetaminophen [Tylenol ES 500 mg (*)] 1,000 mg PO Q6 PRN 03/31/17 [Last Taken Unknown] Cyanocobalamin [Vitamin B12 (*)] 100 mcg PO DAILY 03/31/17 [Last Taken 09/13/18] LORazepam [Ativan (*)] 1 mg PO TID PRN 03/31/17 [Last Taken 09/12/18] Metoprolol Tartrate [Lopressor 25 mg (*)] 12.5 mg PO BID 03/31/17 [Last Taken ] Multivitamins [Multivitamin (*)] 1 each PO DAILY 03/31/17 [Last Taken Unknown] Ranitidine HCl [Zantac] 150 mg PO BID 03/31/17 [Last Taken 09/13/18 AM] Terazosin HCl 10 mg PO HS 03/31/17 [Last Taken Unknown] Tetracycline HCl 250 mg PO TID PRN #0 03/31/17 [Last Taken Unknown] predniSONE 10 mg PO DAILY 03/31/17 [Last Taken Unknown] Apixaban [Eliquis] 2.5 mg PO BID 09/13/18 [Last Taken 09/13/18 AM] Diphenoxylate HCl/Atrop Sulf [Lomotil Tab (*)] 2 tab PO QID PRN 09/13/18 [Last Taken Unknown] Folic Acid [Folic Acid 1 MG (*)] 1 mg PO DAILY 09/13/18 [Last Taken Unknown] Herbals/Supplements -Info Only 1 ea PO DAILY 09/13/18 [Last Taken Unknown] Levothyroxine [Synthroid 112 mcg (*)] 112 mcg PO DAILY06 09/13/18 [Last Taken ] Multivitamins [Multivitamin (*)] 1 each PO DAILY 09/13/18 [Last Taken Unknown] predniSONE 5 mg PO DAILY@15 09/13/18 [Last Taken Unknown] Past Medical History: - Social History Smoking Status: Former smoker Alcohol Use: Occasionally Drug Use: None Physical Exam Physical Exam: Temp Pulse Resp BP Pulse Ox 36.7 C 133 H 20 127/85 H 93 09/15/18 08:00 09/15/18 09:39 09/15/18 08:00 09/15/18 09:39 09/15/18 08:00 Lab and Imaging 09/15/18 03:42 09/14/18 03:42 WBC 9.47 10^3/uL (3.80-9.50) 09/15/18 03:42 RBC 2.00 10^6/uL (4.40-6.38) L 09/15/18 03:42 Hgb 7.9 g/dL (13.7-17.5) L 09/15/18 03:42 Hct 25.8 % (40.0-51.0) L 09/15/18 03:42 MCV 129.0 fL (81.5-99.8) H 09/15/18 03:42 MCH 39.5 pg (27.9-34.1) H 09/15/18 03:42 MCHC 30.6 g/dL (32.4-36.7) L 09/15/18 03:42 RDW 22.9 % (11.5-15.2) H 09/15/18 03:42 Plt Count 174 10^3/uL (150-400) 09/15/18 03:42 MPV 9.4 fL (8.7-11.7) 09/15/18 03:42 Neut % (Auto) Not Reported 09/15/18 03:42 Lymph % (Auto) Not Reported 09/15/18 03:42 [place] % (Auto) Not Reported 09/15/18 03:42 Eos % (Auto) Not Reported 09/15/18 03:42 Baso % (Auto) Not Reported 09/15/18 03:42 Nucleat RBC Rel Count Not Reported 09/15/18 03:42 Absolute Neuts (auto) Not Reported 09/15/18 03:42 Absolute Lymphs (auto) Not Reported 09/15/18 03:42 Absolute Monos (auto) Not Reported 09/15/18 03:42 Absolute Eos (auto) Not Reported 09/15/18 03:42 Absolute Basos (auto) Not Reported 09/15/18 03:42 Absolute Nucleated RBC Not Reported 09/15/18 03:42 Immature Gran % Not Reported 09/15/18 03:42 Seg Neutrophils % 71.0 % 09/15/18 03:42 Band Neutrophils % 8.0 % 09/15/18 03:42 Lymphocytes % 5.0 % 09/15/18 03:42 Monocytes % 9.0 % 09/15/18 03:42 Eosinophils % 2.0 % 09/15/18 03:42 Basophils % 0.0 % 09/15/18 03:42 Metamyelocytes % 2.0 % 09/15/18 03:42 Myelocytes % 3.0 % 09/15/18 03:42 Promyelocytes % 0.0 % 09/15/18 03:42 Blast Cells % 0.0 % 09/15/18 03:42 Immature Gran # Not Reported 09/15/18 03:42 Absolute Seg Neuts 6.72 10^3/uL (1.70-6.50) H 09/15/18 03:42 Absolute Band Neuts 0.76 10^3/uL (0.00-0.70) H 09/15/18 03:42 Absolute Lymphocytes 0.47 10^3/uL (1.00-3.00) L 09/15/18 03:42 Absolute Monocytes 0.85 10^3/uL (0.30-0.80) H 09/15/18 03:42 Absolute Eosinophils 0.19 10^3/uL (0.03-0.40) 09/15/18 03:42 Absolute Basophils 0.00 10^3/uL (0.02-0.10) L 09/15/18 03:42 Absolute Metamyelocyte 0.19 10^3/mL (0.00-0.00) H 09/15/18 03:42 Absolute Myelocytes 0.28 10^3/mL (0.00-0.00) H 09/15/18 03:42 Absolute Promyelocytes 0.00 10^3/uL (0.00-0.00) 09/15/18 03:42 Absolute Plasma Cells 0.00 10^3/uL (0.00-0.00) 09/15/18 03:42 Nucleated RBCs 0 /100 WBC (0-0) 09/15/18 03:42 Absolute Blast Cells 0.00 10^3/uL (0.00-0.00) 09/15/18 03:42 Plasma Cells % 0.0 % 09/15/18 03:42 Platelet Estimate ADEQUATE (ADEQ) 09/15/18 03:42 Polychromasia 1+ H 09/14/18 03:42 Oval Macrocytes 3+ H 09/15/18 03:42 Schistocytes 1+ H 09/13/18 18:55 Smear Review By Stanislaw WAITE MD 09/14/18 03:42 PT 16.0 SEC (12.0-15.0) H 09/13/18 18:55 INR 1.34 (0.83-1.16) H 09/13/18 18:55 APTT 46.1 SEC (23.0-38.0) H 09/13/18 18:55 Sodium 134 mEq/L (135-145) L 09/14/18 03:42 Potassium 4.2 mEq/L (3.5-5.2) 09/14/18 03:42 Chloride 106 mEq/L (97-110) 09/14/18 03:42 Carbon Dioxide 22 mEq/l (22-31) 09/14/18 03:42 Anion Gap 6 mEq/L (6-14) 09/14/18 03:42 BUN 12 mg/dL (7-23) 09/14/18 03:42 Creatinine 0.9 mg/dL (0.7-1.3) 09/14/18 03:42 Estimated GFR > 60 09/14/18 03:42 Glucose 92 mg/dL (70-100) 09/14/18 03:42 Calcium 7.1 mg/dL (8.5-10.4) L 09/14/18 03:42 Magnesium 2.1 mg/dL (1.6-2.3) 09/14/18 03:42 Troponin I < 0.012 ng/mL (0.000-0.034) 09/14/18 03:42 TSH 1.380 uIU/mL (0.465-4.680) 09/13/18 23:40 Free T4 1.10 ng/dL (0.59-2.19) 09/13/18 23:40 Urine Color PALE YELLOW 09/13/18 20:05 Urine Appearance CLEAR 09/13/18 20:05 Urine pH 9.0 (5.0-7.5) H 09/13/18 20:05 Ur Specific [place] 1.003 (1.002-1.030) 09/13/18 20:05 Urine Protein NEGATIVE (NEGATIVE) 09/13/18 20:05 Urine Ketones NEGATIVE (NEGATIVE) 09/13/18 20:05 Urine Blood 1+ (NEGATIVE) H 09/13/18 20:05 Urine Nitrate NEGATIVE (NEGATIVE) 09/13/18 20:05 Urine Bilirubin NEGATIVE (NEGATIVE) 09/13/18 20:05 Urine Urobilinogen NEGATIVE EU (0.2-1.0) 09/13/18 20:05 Ur Leukocyte Esterase NEGATIVE (NEGATIVE) 09/13/18 20:05 Urine RBC 1-3 /hpf (0-3) 09/13/18 20:05 Urine WBC 1-3 /hpf (0-3) 09/13/18 20:05 Ur Epithelial Cells NONE SEEN /lpf (NONE-1+) 09/13/18 20:05 Urine Glucose NEGATIVE (NEGATIVE) 09/13/18 20:05 Patient ABO/Rh A POSITIVE 09/14/18 12:51 Antibody Screen NEGATIVE 09/14/18 12:51 Crossmatch IS Only See Detail 09/14/18 12:51
[2018-09-15] MEDS ORDERED: DILTIAZEM CD 120 MG CAP PO SCH (11:45)
[2018-09-15] MEDS: predniSONE 5 MG TAB PO SCH (14:31)
--- NOTE | 2018-09-15 15:16 | CPEKG ---
Test Reason : OPEN Blood Pressure : / mmHG Vent. Rate : 136 BPM Atrial Rate : 000 BPM P-R Int : 000 ms QRS Dur : 084 ms QT Int : 319 ms P-R-T Axes : 000 089 017 degrees QTc Int : 480 ms Atrial fibrillation with rapid V-rate Borderline right axis deviation Low voltage, extremity leads Borderline T abnormalities, lateral leads Confirmed by Ted Duong ([id number]) on 09/15/2018 3:16:22 PM Referred By: Ted Duong Confirmed By:Ted Duong
[2018-09-15] MEDS ORDERED: DILTIAZEM 30 MG TAB PO ONE (15:17)
--- NOTE | 2018-09-15 15:43 | ASMTCMCOM ---
CM Note CM Note Notes: CM met w/ pt and Pavithra for dispo planning. PT is recommending HC. Pavithra reports that pt historically doesn't want HC but CM can set it up. Referral sent to [facility]. [facility] is able to accept. CM confirmed pts phone number and address. CM to follow. Plan: [facility]; PT Date Signed: 09/15/2018 03:43 PM Electronically Signed By:YOSVANY Mcbride
[2018-09-15 17:42] LABS: PLATELET COUNT 190 10^3/uL (150-400)
[2018-09-15] MEDS ORDERED: IOPAMIDOL (ISOVUE-300) 100 ML BTL ONE (18:16)
--- NOTE | 2018-09-15 18:20 | GCON ---
[f rep st] CONSULTATION CARDIOLOGY CONSULTATION REASON FOR CONSULTATION: Atrial fibrillation with rapid ventricular rates. CHIEF COMPLAINT: Chronic diarrhea, anemia, volume depletion, MDS, and atrial fibrillation with rapid ventricular rates. REQUESTING PHYSICIAN: Preethi Santiago DO HISTORY OF PRESENT ILLNESS: The patient is a 78-year-old male with a history of chronic diastolic congestive heart failure, chronic renal insufficiency, obstructive sleep apnea, paroxysmal atrial fibrillation, and myelodysplastic syndrome. He presented to [facility] ED with ongoing concern for anemia and chronic diarrhea for several months. He was noted to be in atrial fibrillation with rapid ventricular rates at that time. Outpatient, he has been taking metoprolol 12.5 mg b.i.d. at home for rate control of his asymptomatic paroxysmal atrial fibrillation, and he is followed for chronic diastolic congestive heart failure by Dr. Srinath Robertson at [facility]. He is unable to tell when he is in atrial fibrillation. He has noted progressive weakness and generalized abdominal pain recently, and he has been undergoing extensive GI workup for his chronic diarrhea of unclear etiology. No chest pain, orthopnea, lightheadedness, dizziness, syncope, or pre-syncope. He does endorse marked fatigue, a persistent cough, and mild dyspnea. He is currently anticoagulated with Eliquis 2.5mg BID. His dose was reduced in the past second to his anemia and infrequent nature of his AFib at that time His [id number] score is at least 3 (age, CHF). His heart rates have ranged from 115 to 140 beats per minute this hospitalization, and his metoprolol has been increased to 25mg 3 times daily. He also had a 17-beat run of wide- complex tachycardia noted on telemetry. The patient denies chest discomfort, orthopnea, lightheadedness, dizziness, syncope, or presyncope. ALLERGIES: Include lisinopril, codeine, and minocycline. MEDICATIONS: Home medications include acetaminophen, vitamin B12, Ativan, metoprolol 12.5 mg twice daily, ranitidine, and terazosin. FAMILY HISTORY: I have personally reviewed and updated his family history, nonpertinent. PAST MEDICAL HISTORY: As above. SURGICAL HISTORY: Nonpertinent. SOCIAL HISTORY: The patient lives with his . He denies ETOH intake. CARDIAC HISTORY: Chronic diastolic congestive heart failure and paroxysmal atrial fibrillation managed with a rate control strategy. Followed by Dr. Srinath Robertson REVIEW OF SYSTEMS: A 10-point review of systems was negative except for what was stated in HPI and below. PHYSICAL EXAM: CONSTITUTIONAL: Lethargic and ill-appearing this morning. EYES : Pupils equal, round, reactive to light. Anicteric sclerae. ENT: Dry mucous membranes. Normal hearing. CARDIOVASCULAR: Irregularly irregular, tachycardic. Trace bilateral lower extremity edema. RESPIRATORY: No respiratory distress. LUNGS: Somewhat diminished in the bases. No crackles or wheezes noted on auscultation. GASTROINTESTINAL: Normoactive bowel sounds, soft, nontender to palpation. GENITOURINARY: No bladder tenderness. SKIN: Pale, warm, dry. MUSCULOSKELETAL: Mild to moderate generalized weakness this morning. NEUROLOGIC: Alert and oriented x3, no apparent distress. PSYCHIATRIC : Cooperative, interacting appropriately, not anxious, not encephalopathic. ASSESSMENT AND PLAN: A 78-year-old male with a past medical history of chronic diastolic heart failure, chronic renal insufficiency, obstructive sleep apnea, paroxysmal atrial fibrillation, anemia, and myelodysplastic syndrome. He is currently admitted for further evaluation of anemia and dehydration associated with chronic diarrhea for at least 3 months and an associated 30 pound weight loss. In addition, he is currently in atrial fibrillation with rapid ventricular rates. His ventricular rates remain uncontrolled with metoprolol 25mg at this time. It is unclear whether his rapid ventricular rates and/or increased dose of metoprolol are contributing to his notable fatigue. We will discontinue his metoprolol and trial diltiazem 120 mg daily. We are hesitant to proceed with cardioversion unless he is markedly symptomatic or unstable second to the likelihood that Eliquis may need to be stopped at some point in the near future pending his GI workup. [id number] score is at least 3, we will increase his Eliquis back to 5mg BID. No significant signs of fluid volume overload at this time. We will order an chocardiogram to re-evaluate his ejection fraction at this time. Cardiology will continue to follow. Time spent on consultation greater than 30 minutes. /[id number]/MODL MTDD
[2018-09-15] MEDS: TERAZOSIN HCL 5 MG CAP PO SCH (20:04)
[2018-09-15] MEDS: CEFEPIME HCL 2 GM in NS 100 ML IV SCH (20:09)
[2018-09-16] MEDS: LEVOTHYROXINE 112 MCG TAB PO SCH (03:33)
[2018-09-16] MEDS: ACETAMINOPHEN 325 MG TAB PO PRN ×3 (03:33→16:18)
[2018-09-16] MEDS: CEFEPIME HCL 2 GM in NS 100 ML IV SCH ×3 (03:33→21:09)
[2018-09-16 04:33] LABS: PLATELET COUNT 180 10^3/uL (150-400)
[2018-09-16] MEDS ORDERED: DIGOXIN 500 MCG/2 ML AMP IVP ONE (08:25)
[2018-09-16] MEDS: CYANO/VITAMIN B12 100 MCG TAB PO SCH (08:27)
[2018-09-16] MEDS ORDERED: NS 500 ML IV ONE (08:27)
[2018-09-16] MEDS: MULTIVITAMINS 1 EACH TAB PO SCH (08:27)
[2018-09-16] MEDS: FAMOTIDINE 20 MG TAB PO SCH ×2 (08:28→21:20)
[2018-09-16] MEDS: APIXABAN 2.5 MG TAB PO SCH ×2 (08:28→21:20)
[2018-09-16] MEDS: POTASSIUM CL 20 MEQ TAB PO SCH (08:28)
[2018-09-16] MEDS: FOLIC ACID 1 MG TAB PO SCH (08:28)
--- NOTE | 2018-09-16 08:33 | HOSPPROG ---
Hospitalist Progress Note Assessment/Plan: 78 yo M with h/o MDS with refractory anemia, paroxysmal a fib, vasculitis on chronic immune suppression as well as diarrhea x 3 months with associated 30 pound weight loss admitted with weakness/dehydration and a fib w/rvr # a fib w/rvr: in the setting of volume depletion due to diarrhea and sepsis / RLL PNA. Poor rate control persists, 150's this am. SBP ~80 this am, was changed from Metoprolol to Dilt CD yesterday, which has not been effective. -will load with IV Digoxin given hypotension -NS bolus 500 cc's now -will cont dilt cd if BP tolerates -cont eliquis for cva prevention -monitor on telemetry, has required cardioversion in the past -cardiology following, echo pending # Sepsis 2/2 RLL PNA - (Temp, wbc's, HR). Pt is immunocompromised, though Humira currently held. Lactate nl. -treating as HAP with recent hospitalization, cont Cefepime 2 g IV q8h -BCx's pending -NS bolus as above # chronic diarrhea: 30 lb weight loss noted, unclear etiology. Has had recent hospitalization for same in [place] at which time colonoscopy was performed which showed normal mucosa and diverticula, records from [facility] reviewed. Biopsies were taken and revealed mild active colitis, neg for malignancy. Apparently, his diarrhea resolved with cholestyramine and Lomotil. He was treated with PO Cipro/Flagyl in 05/2018 at onset. He later received IV ceftriaxone plus flagyl. CT at that time showed colitis. GI PCR neg x2 (09/12 and 09/16). Continues to have ~10 watery BM's in past 24 hrs. -GI consult appreciated, discussed with Dr. Luna, will start Solumedrol 30 mg q8h and gauge response -prn imodium -heme stool is positive -may undergo repeat scope once cardiopulmonary status better stabilized # NSVT - brief 17 beat run, asymptomatic. Unable to see O2 pleth to determine if this may have been artifact. Has not recurred -BB changed to CCB as above # MDS: with refractory anemia followed by oncology Dr. Martinez, hgb 7.9 after 1 u prbc's 09/14 -follow, transfuse for hgb <7 -pt may warrant repeat BM bx at some point # Anemia: presumed 2/2 MDS, recent colonoscopy unrevealing -Heme positive stool noted -discussed with Dr. Narayan who will give epo # vasculitis: felt to be sequela of his MDS. Had biopsy which showed small vessel skin vasculitis, followed by Dr. Patel, has been on humira with concerns it could be contributing to his diarrhea -trial IV solumedrol as above -humira is held # chronic diastolic heart failure: without e/o acute exacerbation currently, followed by Dr. Robertson # CKD: with baseline creatinine of 1.1, currently at baseline # BPH s/p TURP # Dispo - cont inpt. 45 min crit care, high risk Subjective: Pt feels poorly, though he is up in chair, oob at 8:30 this am. Says he feels his heart racing and is a bit SOB . Does endorse cough and has had intermittent fevers even prior to admission. No CP. Tmax 39 last night. Poor oral intake. Still having loose stools, >3 overnight. He is weak and dizzy. Objective: Vital Signs Temp Pulse Resp BP Pulse Ox 36.3 C 127 H 19 82/51 L 93 09/16/18 08:27 09/16/18 08:00 09/16/18 08:00 09/16/18 08:00 09/16/18 08:00 Microbiology 09/15/18 20:00 Gastrointestinal Tract Panel (PCR) - Final Stool No Organism Detected By Pcr Laboratory Results 09/16/18 04:10 09/16/18 04:10 09/15/18 09/16/18 09/17/18 05:59 05:59 05:59 Intake Total 3725 1040 Output Total 200 76 Balance 3525 964 PT 16.0 SEC (12.0-15.0) H 09/13/18 18:55 INR 1.34 (0.83-1.16) H 09/13/18 18:55 - Physical Exam Constitutional: no apparent distress Eyes: PERRL Ears, Nose, Mouth, Throat: moist mucous membranes Cardiovascular: irregularly irregular, tachycardia Respiratory: no respiratory distress, reduced air movement, inspiratory crackles Gastrointestinal: normoactive bowel sounds, soft, non-tender abdomen Skin: warm Musculoskeletal: generalized weakness Neurologic: AAOx3 Psychiatric: interacting appropriately ICD10 Worksheet Patient Problems: Problems Problem Status Onset Atrial fibrillation Acute Dehydration Acute Fever Acute Myelodysplastic syndrome Acute
[2018-09-16] MEDS: DILTIAZEM CD 120 MG CAP PO SCH (08:57)
[2018-09-16] MEDS ORDERED: DILTIAZEM CD 180 MG CAP PO SCH (09:00)
--- NOTE | 2018-09-16 11:47 | ECHO ---
[email or web address] [address] Main: [phone] Echocardiography Examination Transthoracic Name: MELLISSA BURNHAM MR#: [id number] Study Date: 09/15/2018 Study Time: 01:50 PM Date of : 1940 Age: 78 year(s) Height: 185.4 cm (73 in.) Weight: 101.15 kg (223 lb.) BSA: 2.25 m2 Gender: Male Examination: Echo Contrast: Image Quality: Fair Rhythm: Atrial fibrillation Heart Rate: 115 bpm BP: 128 mmHg/91 mmHg Indication: New onset Afib, Chronic Heavy Cough Procedure Staff Referring Physician: Home Care Giver: Frank Holt RDCS Reading Physician: Dinesh Hawk MD Requesting Provider: Ordering Physician: Piotr Piper MD Indication: New onset Afib, Chronic Heavy Cough Measurements Chambers AV/MV Label Value Normal Value Label Value Normal Value LVOT Vmax 0.49 m/s (0.7m/s - 1.1m/s) AV PGmax 8 mmHg LVOT PGmax 1 mmHg AV Vmax 1.4 m/s LVDd, 2D 4.4 cm (4.2cm - 5.9cm) MV E Vmax 0.98 m/s LVDs, 2D 3.3 cm (2.1cm - 4cm) TV/PV IVSd, 2D 0.9 cm (0.6cm - 1.1cm) Label Value Normal Value LVPWd, 2D 1.2 cm (0.6cm - 1cm) RA Pressure 10 mmHg LVEF, 2D 52 % (54% - 74%) RVSP 44 mmHg Additional Vessels TR Pmax 34 mmHg Label Value Normal Value TR Vmax 2.92 m/s AoRoot, MM 3.4 cm (2.2cm - 3.7cm) Conclusions Technically difficult study with poor acoustic windows. The patient was in atrial fibrillation at the time of the study. Normal left ventricular size and systolic function. LVEF estimated at 50-55% and calculated at 50 2% by Patrick's. Normal left ventricular free wall thickness. No evidence of regional wall motion abnormalities. Normal atrial dimensions. Grossly normal-appearing valvular structures. Trivial mitral regurgitation with mild tricuspid regurgitation. Moderately elevated estimated RVSP of 44 mmHg. The patient had a previous study in March of 2015. In the interim there has been no significant change. Patient: MELLISSA BURNHAM Study Date: 09/15/2018 Page 1 of 2 01:50 PM Findings Left Ventricle: Left ventricle is normal in size. Low normal left ventricular systolic function. Unable to assess Diastolic Dysfunction due to atrial fibrillation/a flutter. Right Ventricle: Normal size right ventricle. Right ventricular systolic function is normal. Left Atrium: The left atrium is normal in size. Right Atrium: The right atrium is normal in size. Mitral Valve: Mitral valve appears structurally normal. Trivial to mild mitral regurgitation. No mitral valve stenosis. Aortic Valve: Aortic leaflets are structurally normal. No aortic valve regurgitation. There is no aortic stenosis. Tricuspid Valve: Tricuspid valve leaflets are structurally normal. Mild tricuspid regurgitation. Right Ventricular systolic pressure is measured at 44 mmHg. Pulmonary artery pressure is mildly increased. Pulmonic Valve: Pulmonic valve is poorly visualized. Aorta: The aortic root size in M-mode measures 3.4 cm. Aorta Measurements AoRoot, MM is 3.4 cm. Pericardium: Off axis views were obtained due to lung interference. A majority of the exam was performed from the subcostal views to obtain LV/RV and valve function. . No pericardial effusion. Exam Details Procedure Ordered: Echo Image Quality: Fair (No Signature Object) Patient: MELLISSA BURNHAM Study Date: 09/15/2018 Page 2 of 2 01:50 PM [id number]
--- NOTE | 2018-09-16 11:52 | SOAPPROG ---
SOAP Progress Note Assessment/Plan: Assessment: 1. Community-acquired pneumonia. This is associated with sepsis. Currently on cefepime. This is being followed by the hospitalist service. 2. History of myelodysplastic syndrome. His counts have been stable. He has received a unit of packed red blood cells. 3. Chronic renal insufficiency. This appears to be stable at the present time. 4. Chronic diarrhea. GI consult pending. 5. Paroxysmal atrial fibrillation. He is in atrial fibrillation currently with suboptimal heart rate controls. His hemodynamics are a little soft at the present time. He is on systemic anticoagulation in the form of Eliquis. 6. Nonsustained VT. This is noted on telemetry. This has been asymptomatic. His ejection fraction is normal. Plan: 1. He will continue on extended release diltiazem and systemic anticoagulation in the form of Eliquis. 2. An intravenous load of digoxin was ordered by the hospitalist service. I think this is reasonable. His goal heart rate control is a resting heart rate of about 110 beats per minute or less. A slightly higher heart rate certainly is acceptable in the setting of this acute illness and anemia. 3. We will continue to monitor him on telemetry. 4. At the present time, there is no indication for an urgent cardioversion. 5. Depending on his clinical course and whether not he reverts back to sinus rhythm on his own, as he recovers from this acute illness we may consider a cardioversion at that time. 6. We will follow along with you. Subjective: The patient was seen and examined. His chart was reviewed. He has a history of chronic diastolic congestive heart failure, chronic renal insufficiency, ANNA MARIE and PAF. As an outpatient, he is followed by Dr. Srinath Ware. His cardiovascular health has been stable. He is now admitted to the hospital with weakness and cough. He has a significant right lower lobe pneumonia. He was noted to be in atrial fibrillation on arrival with poor heart rate control. Yesterday, his beta-mehran was changed over to diltiazem extended release. Since then his heart rates have been in the mid 120s. He has no palpitations. There is no history of chest discomfort. Objective: Vital Signs Temp Pulse Resp BP Pulse Ox 36.8 C 123 H 13 110/62 97 09/16/18 11:20 09/16/18 11:20 09/16/18 11:20 09/16/18 11:20 09/16/18 11:20 Microbiology 09/15/18 20:00 Gastrointestinal Tract Panel (PCR) - Final Stool No Organism Detected By Pcr Laboratory Results 09/16/18 04:10 09/16/18 04:10 09/15/18 09/16/18 09/17/18 05:59 05:59 05:59 Intake Total 3725 1040 Output Total 200 76 Balance 3525 964 PT 16.0 SEC (12.0-15.0) H 09/13/18 18:55 INR 1.34 (0.83-1.16) H 09/13/18 18:55 Physical Exam - Physical Exam General Appearance: WD/WN, other (Chronically ill) Respiratory: chest non-tender, lungs clear, normal breath sounds Cardiac/Chest: normal peripheral pulses, irregularly irregular, No edema, No gallop, No JVD Peripheral Pulses: 2+: carotid (R), carotid (L) Abdomen: normal bowel sounds, non-tender, soft Male Genitalia: deferred Rectal: deferred ICD10 Worksheet Patient Problems: Problems Problem Status Onset Atrial fibrillation Acute Dehydration Acute Fever Acute Myelodysplastic syndrome Acute
[2018-09-16] MEDS ORDERED: predniSONE 5 MG TAB PO SCH (12:00)
[2018-09-16] MEDS: DIGOXIN 500 MCG/2 ML AMP IVP SCH ×2 (14:05→21:17)
[2018-09-16] MEDS: EPOETIN ALFA 10,000 UNIT/ML VIAL SC SCH (14:05)
--- NOTE | 2018-09-16 14:43 | GCON ---
[f rep st] CONSULTATION REQUESTING PHYSICIAN: Preethi Santiago MD. REASON FOR CONSULTATION: Consultations for chronic diarrhea. Dear Dr. Santiago, Thank you very kindly for asking me to evaluate this patient in consultation for chronic diarrhea. T his has been going on since 2017 after eating what he thought might have been spoiled ra w meat. His infectious workups have been repetitively negative. He interestingly has an underlying vasculitis and myelodysplastic syndrome. He has been treated by Dr. Patel at [facility]. 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 Although, this was never really formally confirmed. At that time, he was pl aced on prednisone and did well and in an effort to bridge him off steroids, was ultimately put on th e Humira. He had associated chills, fever, malaise, and the skin lesions initially, but over the las t several years as he has been treated for this illness, he has mostly manifested with chills, fever, and interestingly, worsening AFib supposedly when his vasculitis flares. I have very limited detail s about this and I have placed a call Dr. Patel to see if I get some clarification of his illness. Nonetheless, he had terrible diarrhea that resulted in an admission in June. At which time, he hayward d a CT scan showing some thickening of what sounds like the transverse and descending colon and had a colonoscopy for this. The colonoscopy was endoscopically normal. However, biopsies did show an acu te colitis, without features of lymphocytic or collagenous colitis. There were no chronic inflammato ry features to suggest inflammatory bowel disease. He really did not have a formal diagnosis after t his and has continued to have diarrhea, resulting in dehydration. His stools are quite large in volu me, nonbloody, associated with cramping and urgency and frequent. He has lost about 30 pounds of lawrence ght in 3 months since the onset of the illness without clear understanding of why. I am asked to ass ist with further evaluation and management of his illness. 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 It also appears that his vasculitis has involved systemic symptoms such as chills and fever, a s well as worsening arrhythmia. Long-term use of Humira and steroids. Chronic diarrhea, anxiety, ch ronic kidney disease, obstructive sleep apnea. PAST SURGICAL HISTORY: For a foot and knee surgery. FAMILY HISTORY: For a daughter with colon cancer. SOCIAL HISTORY: He is a former smoker. He is . He lives part-time in [place]. REVIEW OF SYSTEMS: GENERAL: Chills, fever, malaise, weight loss, loss of appetite. HEENT: Denies headache, sore throat. Denies rhinorrhea or epistaxis. No headache or ear pain. No dizziness. PUL MONARY: He denies shortness of breath or cough. No hemoptysis. CARDIOVASCULAR: He is not aware of his AFib. He does not report chest pain or palpitations. He has had no syncopal events. GASTROINT ESTINAL: Negative other than the HPI. RHEUMATOLOGIC: He denies joint pain or swelling. He denies active rash or skin lesion. NEURO: Denies any falls. He has been weak, but not focally. Denies an y paresthesias. DERMATOLOGIC: Again, no current skin lesions. He does report having erythema nodos um in the past. He does have onychomycosis. PSYCHIATRIC: For anxiety, but it seems that he feels t his is well managed. ENDOCRINE: Denies heat or cold intolerance unless he has the chills. Denies polyuria or polydipsia. GENITOURINARY: He denies any hematuria or flank pain. CURRENT MEDICATIONS: Include Tylenol, [place], Eliquis. He has been on cefepime, digoxin, diltiazem, Lomotil, Procrit, Pepcid, Dilaudid, folate, Synthroid, Ativan, multivitamin, Zofran, potassium, predn isone 5 mg daily, Hytrin. ALLERGIES: Lisinopril, codeine and minocycline. PHYSICAL EXAMINATION: VITAL SIGNS: Blood pressure 113/78. His pulse is erratic in between 110 and 130. Respirations are between 18 and 20. Oxygenation is 94% on room air. Temperature is 38.6. GEN ERAL: A chronically ill-appearing male, but in no acute distress. Able to provide his own history. Alert and not confused. HEENT: Normocephalic, atraumatic. Oropharynx clear. NECK: Supple. No j ugular venous distention. PULMONARY: Clear to auscultation bilaterally. CARDIOVASCULAR: Tachycard ia with irregular rate and rhythm. GI: Abdomen is mildly tender to palpation in the left lower quad rant, without tenderness, rebound, or guarding. Bowel sounds are normal. Abdomen is nondistended. No overt tympany. MUSCULOSKELETAL: Normal joint exam, without swelling, deformity, or warmth. DERM ATOLOGIC: No active skin lesion. LABORATORIES: Show a white blood count of 13.1, hematocrit is 25.6, with an MCV of 130, platelets ar e 180. INR is 1.34. Sodium 130, potassium 3.9, chloride 102, bicarbonate 19, creatinine 0.8, glucos e 64. Ferritin is elevated at 660. TSH is 1.38. Stool is occult positive for blood. Stool PCR is negative for pathogens. Blood cultures have been sent and pending. IMAGING: Includes a CT scan of the abdomen and pelvis on September 13, 2018, that shows diffuse diverticu losis, without inflammation. There is some nonspecific mild thickening of the transverse and descend ing colon. No other acute process. A colonoscopy on June 13, 2018, complete to the cecum and desc ribed endoscopically as normal. Biopsies are reviewed and show a mildly active colitis, without audit clerk jude mucosal injury. There is no evidence of lymphocytic colitis or collagenous colitis. Deeper leve ls of this tissue biopsies were also performed. There is no dysplasia or malignancy. The differenti al diagnosis is somewhat broad, but is most consistent with an acute active colitis such as that rela zhen to NSAIDs. IMPRESSION: 1. Chronic diarrhea. 2. Myelodysplasia. 3. Vasculitis. 4. Chronic anemia, macrocytic, likely due to myelodysplasia. 5. Lower abdominal cramping and pain. 6. Atrial fibrillation, on Eliquis. RECOMMENDATIONS: 1. I am inclined to resume a higher dose of steroids to see if systemically he improves. It may hel p his chills, fever, and some of the systemic symptoms related to vasculitis and if there is any vianey l involvement with this, it may improve. His previous colonoscopy and biopsies are nondiagnostic, bu t do not suggest microscopic colitis, nor inflammatory bowel disease really. 2. Given his previous Sweet syndrome diagnosis, which can be associated with gastrointestinal malign anushka, it would likely be of help to do an upper endoscopy and possibly repeat his colonoscopy for [place] gnostic purposes, but he will need to hold his Eliquis at least for 2 days and I am not sure this is possible with his poorly rate controlled AFib at the current time. I will discuss this with Medicine and Cardiology. 3. In the interim, it may be valuable to start a rather lower dose of IV Solu-Medrol such as 30 mg q .8 to see if his diarrhea resolves. If this does not improve his diarrhea and concomitantly, we can hold his Eliquis in the interim, then we can proceed with further diagnostic evaluation, which is his endoscopy and colonoscopy. 4. Secretory diarrheas are also possible and I would initiate that workup if his diarrhea does not r espond to steroids, his endoscopic and colonoscopy evaluations are non helpful and he continues to be sick. Further recommendations to follow. /[id number]/MODL
[2018-09-16] MEDS: methylPREDNISolone SOD SUCC 40 MG/ML VIAL IVP SCH ×2 (16:18→21:34)
[2018-09-16] MEDS: guaiFENesin 600 MG TAB.ER PO SCH ×2 (16:54→21:19)
[2018-09-16] MEDS: NS 1,000 ML IV SCH (21:09)
[2018-09-16] MEDS: LORazepam 1 MG TAB PO PRN (21:20)
[2018-09-16] MEDS: TERAZOSIN HCL 5 MG CAP PO SCH (21:20)
[2018-09-16] MEDS: LOPERAMIDE HCL 2 MG CAP PO PRN (21:33)
[2018-09-17] MEDS: CEFEPIME HCL 2 GM in NS 100 ML IV SCH ×3 (03:53→20:45)
[2018-09-17 04:35] LABS: PLATELET COUNT 164 10^3/uL (150-400)
[2018-09-17] MEDS: LEVOTHYROXINE 112 MCG TAB PO SCH (05:20)
[2018-09-17] MEDS: BENZONATATE 100 MG CAP PO PRN ×2 (05:20→12:43)
[2018-09-17] MEDS: methylPREDNISolone SOD SUCC 40 MG/ML VIAL IVP SCH ×3 (05:56→20:46)
[2018-09-17] MEDS: CYANO/VITAMIN B12 100 MCG TAB PO SCH (08:39)
[2018-09-17] MEDS: FOLIC ACID 1 MG TAB PO SCH (08:39)
[2018-09-17] MEDS: FAMOTIDINE 20 MG TAB PO SCH ×2 (08:39→20:45)
[2018-09-17] MEDS: APIXABAN 2.5 MG TAB PO SCH ×2 (08:39→10:25)
[2018-09-17] MEDS: POTASSIUM CL 20 MEQ TAB PO SCH (08:40)
[2018-09-17] MEDS: DILTIAZEM CD 120 MG CAP PO SCH (08:40)
[2018-09-17] MEDS: MULTIVITAMINS 1 EACH TAB PO SCH (08:40)
[2018-09-17] MEDS: guaiFENesin 600 MG TAB.ER PO SCH ×2 (08:40→20:45)
[2018-09-17] MEDS: DIGOXIN 125 MCG TAB PO SCH (10:25)
[2018-09-17] MEDS ORDERED: DILTIAZEM CD 120 MG CAP PO SCH (11:08)
--- NOTE | 2018-09-17 11:09 | SOAPPROG ---
SOAP Progress Note Assessment/Plan: Assessment: 1. Community-acquired pneumonia. This is associated with sepsis. Currently on cefepime. This is being followed by the hospitalist service. 2. History of myelodysplastic syndrome. His counts have been stable. He has received a unit of packed red blood cells. 3. Chronic renal insufficiency. This appears to be stable at the present time. 4. Chronic diarrhea. GI consult pending. 5. Paroxysmal atrial fibrillation. He is in atrial fibrillation currently with suboptimal heart rate controls. His hemodynamics are a little soft at the present time. He is on systemic anticoagulation in the form of Eliquis. 6. Nonsustained VT. This is noted on telemetry. This has been asymptomatic. His ejection fraction is normal. 09/17/2018: Clinically he has shown significant improvement over the last 24 hr. His heart rates in atrial fibrillation are suboptimally controlled however asymptomatic at the present time. Plan: 1. I have increased his extended release diltiazem up to 180 mg daily. 2. Continue current dose of digoxin. I will give him an additional 0.25 mg today. 3. His systemic anticoagulation can be discontinued as needed to facilitate his GI workup. 4. At the present time, there is no indication for urgent cardioversion. 5. We will follow along with you. 09/17/18 11:09 Subjective: He is doing better today. He states that he feels much better and his oxygen requirements have diminished substantially. On room air saturations remain in the high 90% range. Gastroenterology was consulted. They have plans to perform colonoscopy prior to the end of the week. On telemetry he remains in atrial fibrillation with marginal heart rate control. Objective: Vital Signs Temp Pulse Resp BP Pulse Ox 36.3 C 116 H 15 129/78 H 97 09/17/18 07:32 09/17/18 10:25 09/17/18 07:32 09/17/18 08:40 09/17/18 07:32 Microbiology 09/15/18 20:00 Gastrointestinal Tract Panel (PCR) - Final Stool No Organism Detected By Pcr Laboratory Results 09/17/18 04:13 09/17/18 04:13 09/16/18 09/17/18 09/18/18 05:59 05:59 05:59 Intake Total 1040 2704 Output Total 76 1850 Balance 964 854 PT 16.0 SEC (12.0-15.0) H 09/13/18 18:55 INR 1.34 (0.83-1.16) H 09/13/18 18:55 Physical Exam - Physical Exam General Appearance: WD/WN, alert, no apparent distress EENT: PERRL/EOMI, normal ENT inspection, pharynx normal, TMs normal Neck: non-tender, full range of motion, supple, normal inspection Respiratory: chest non-tender, other (Sonorous breath sounds in the right posterior lung field) Cardiac/Chest: normal peripheral pulses, edema (Trace by pedal edema), irregularly irregular Peripheral Pulses: 2+: carotid (R), carotid (L), femoral (R), femoral (L), dorsalis-pedis (R), dorsalis-pedis (L) Abdomen: normal bowel sounds, non-tender, soft Male Genitalia: deferred Rectal: deferred Back: Normal inspection Skin: normal color, warm/dry Lymphatic: no adenopathy Extremities: normal range of motion, non-tender, normal inspection, normal capillary refill Neuro/Psych: no motor/sensory deficits, alert, normal mood/affect, oriented x 3 ICD10 Worksheet Patient Problems: Problems Problem Status Onset Fever Acute Myelodysplastic syndrome Acute Atrial fibrillation Acute Dehydration Acute
[2018-09-17] MEDS ORDERED: DIGOXIN 500 MCG/2 ML AMP IVP ONE ×2 (11:13→11:45)
[2018-09-17] MEDS ORDERED: DILTIAZEM 30 MG TAB PO ONE (12:00)
[2018-09-17] MEDS: NS 1,000 ML IV SCH (12:59)
[2018-09-17] MEDS: HYDROCODONE/APAP 5/325 TAB PO PRN ×2 (13:33→14:33)
--- NOTE | 2018-09-17 13:47 | HOSPPROG ---
Hospitalist Progress Note Assessment/Plan: 78 yo M with h/o MDS with refractory anemia, paroxysmal a fib, vasculitis on chronic immune suppression as well as diarrhea x 3 months with associated 30 pound weight loss admitted with weakness/dehydration and a fib w/rvr. New development of PNA. # a fib w/rvr: in the setting of volume depletion due to diarrhea and sepsis / RLL PNA. Poor rate control persists, up 150's this am. -increase Dilt CD per cards -cont digoxin, additional IV dose today -hold eliquis (last dose 09/17 am) as planning for scopes per GI, see below -cont to monitor on telemetry, has required cardioversion in the past # Sepsis 2/2 RLL PNA - (Temp, wbc's, HR). Pt is immunocompromised on chronic steroids, Humira currently held. Lactate nl. -treating as HAP with recent hospitalization, cont Cefepime 2 g IV q8h -BCx's ngtd -no hypoxemia # chronic diarrhea: 30 lb weight loss, unclear etiology. Recent hospitalization for same in [place] at which time c-scope showed normal mucosa and diverticula, records from [facility] reviewed. Biopsies were taken and revealed mild active colitis, neg for malignancy. Apparently, his diarrhea resolved with cholestyramine and Lomotil. He was treated with PO Cipro/Flagyl in 05/2018 at onset. He later received IV ceftriaxone plus flagyl. CT at that time showed colitis. GI PCR neg x2 (09/12 and 09/16). Continues to have watery stools though volume / frequency decreasing -GI consult appreciated, discussed with Dr. Luna, started Solumedrol 30 mg q8h yesterday, cont to gauge response -prn imodium -heme stool positive x1, then negative x1 -may undergo repeat scopes once cardiopulmonary status better stabilized, possibly in 2 days (eliquis held today) # NSVT - 17 beat run 09/14, asymptomatic. Unable to see O2 pleth to determine if this may have been artifact. Has not recurred -BB changed to CCB as above # MDS: with refractory anemia followed by oncology Dr. Martinez, hgb 7.0 --> 8.6 after 1 u prbc's 09/14 -follow, transfuse for hgb <7 -Epo and further w/u per oncology -pt may warrant repeat BM bx at some point # Anemia: presumed 2/2 MDS, recent colonoscopy unrevealing -Heme positive stool noted -Epo per onc # vasculitis: felt to be sequela of his MDS. Had biopsy which showed small vessel skin vasculitis, followed by Dr. Patel, has been on humira with concerns it could be contributing to his diarrhea -trial IV solumedrol as above -humira is held # chronic diastolic heart failure: without e/o acute exacerbation currently, followed by Dr. Robertson # CKD: with baseline creatinine of 1.1, currently at baseline # BPH s/p TURP # Dispo - cont inpt. ADD uncertain. PT recommending HHC. Subjective: Pt doing a little better today. Still c/o abdominal pain and fast HR. No CP or SOB. No fevers. Coughing persists, dry, non-productive. He remains weak. Objective: Vital Signs Temp Pulse Resp BP Pulse Ox 36.4 C 127 H 16 97/72 L 96 09/17/18 11:40 09/17/18 13:38 09/17/18 11:40 09/17/18 13:38 09/17/18 11:40 Laboratory Results 09/17/18 04:13 09/17/18 04:13 09/16/18 09/17/18 09/18/18 05:59 05:59 05:59 Intake Total 1040 2704 Output Total 76 1850 Balance 964 854 PT 16.0 SEC (12.0-15.0) H 09/13/18 18:55 INR 1.34 (0.83-1.16) H 09/13/18 18:55 - Physical Exam Constitutional: no apparent distress Eyes: PERRL Ears, Nose, Mouth, Throat: moist mucous membranes Cardiovascular: regular rate and rhythym Respiratory: no respiratory distress, inspiratory crackles Gastrointestinal: other (soft, nd, LLQ TTP, no r/r/g, +BS) Skin: warm Musculoskeletal: full muscle strength Neurologic: AAOx3 Psychiatric: interacting appropriately ICD10 Worksheet Patient Problems: Problems Problem Status Onset Atrial fibrillation Acute Dehydration Acute Fever Acute Myelodysplastic syndrome Acute
[2018-09-17] MEDS ORDERED: CEPACOL LOZENGE PO PRN (13:53)
[2018-09-17] MEDS ORDERED: GUAIFENESIN/DM 10 ML UDCUP PO PRN (13:55)
[2018-09-17] MEDS: PROMETHAZINE HCL 25 MG/ML INJ IVP PRN ×2 (18:21→20:30)
--- NOTE | 2018-09-17 19:42 | SOAPPROG ---
SOAP Progress Note Assessment/Plan: Assessment: 1. Diarrhea 2. RLL pneumonia 3. Undifferentiated myelodysplastic syndrome with mild pancytopenia-low risk IPSS 4. Small vessel vasculitis 5. A. fib Plan: 1. Counts stable. No indication for transfusions. B12 levels ok 2. Colonoscopy per GI 09/17/18 19:40 09/17/18 19:42 09/17/18 19:44 Subjective: coughing, tired Objective: Vital Signs Temp Pulse Resp BP Pulse Ox 36.3 C 99 10 L 124/72 H 98 09/17/18 19:33 09/17/18 19:33 09/17/18 19:33 09/17/18 19:33 09/17/18 19:33 Laboratory Results 09/17/18 04:13 09/17/18 04:13 09/16/18 09/17/18 09/18/18 05:59 05:59 05:59 Intake Total 1040 2704 1567 Output Total 76 1850 300 Balance 117 353 6028 PT 16.0 SEC (12.0-15.0) H 09/13/18 18:55 INR 1.34 (0.83-1.16) H 09/13/18 18:55 Physical Exam - Physical Exam General Appearance: no apparent distress Respiratory: other (decreased breath sounds) Abdomen: non-tender, soft ICD10 Worksheet Patient Problems: Problems Problem Status Onset Atrial fibrillation Acute Dehydration Acute Fever Acute Myelodysplastic syndrome Acute
--- NOTE | 2018-09-17 20:38 | GCON ---
[f rep st] CONSULTATION HEMATOLOGY/ONCOLOGY CONSULTATION DATE OF CONSULTATION: 09/16/2018 REASON FOR CONSULTATION: The patient with history of myelodysplastic syndrome and vasculitis, admitt ed with severe chronic diarrhea. HISTORY OF PRESENT ILLNESS: The patient is a very pleasant 78-year-old male with an undifferentiated myelodysplastic syndrome with trisomy 8, who is also being treated for vasculitic syndrome with Humi ra, who is now admitted with severe diarrhea. The patient's oncology history dates back to October when he was diagnosed with a myelomonocytic leukemia and had Vidaza treatment between October 2003 unt l November of 2014. 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 He has been followed expectantly without any specific therapy. He has had mil d anemia and thrombocytopenia, which have been stable. He has also been diagnosed with a small vessel vasculitis for which he takes Humira and prednisone. The patient was recently hospitalized in [place] for severe diarrhea and reportedly had a negative co lonoscopy. He was referred to the emergency room here on September 13 by his primary care physician due to ongoing severe diarrhea. He has lost 30 pounds over the last 3 months. He has not noted any fevers ; however, when he took himself empirically off the Humira, he did develop a fever, which he has done in the past when his vasculitis has flared. PAST MEDICAL HISTORY: Small vessel vasculitis, atrial fibrillation, MDS per HPI, hypothyroidism, BPH . SOCIAL HISTORY: He is . He has 4 children. 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 He does not smoke any cigarettes. FAMILY HISTORY: Notable for a daughter diagnosed with colon cancer at age 37. REVIEW OF SYSTEMS: 10-point review of systems negative other than HPI. PHYSICAL EXAM: GENERAL: He is an elderly, somewhat of a frail-appearing male sitting in bed. VITAL S IGNS: Blood pressure 121/72, heart rate 127 irregular, O2 sat is 96% on room air. He is afebrile. SPENSER NT: Pupils equal. Sclerae anicteric. Oropharynx is clear. LUNGS: Decreased breath sounds at the right base. ABDOMEN: Soft. Hyperactive bowel sounds. Nontender. LABORATORY DATA: White blood cell count 13.2, hematocrit 25.6, platelets 180. Ferritin 660, creatini ne 0.7. IMPRESSION: This is a 78-year-old male with favorable IPSS score undifferentiated myelodysplastic sy ndrome manifested by mild anemia, neutropenia and thrombocytopenia, who has been followed without any treatment for his myelodysplastic syndrome, now admitted with symptoms of severe diarrhea. The patie nt's CT scan is consistent with a right lower lobe pneumonia. He will be seen by Gastrointestinal for consideration of repeat colonoscopy. I would recommend transfusion to keep hemoglobin above 7. We wi ll continue to follow along with you. /[id number]/MODL
[2018-09-17] MEDS: TERAZOSIN HCL 5 MG CAP PO SCH (20:45)
[2018-09-17] MEDS: LORazepam 1 MG TAB PO PRN (22:09)
--- NOTE | 2018-09-17 23:27 | SOAPPROG ---
[facility] Progress Note Assessment/Plan: Assessment: 1. Myelodysplasia 2. 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 Chronic diarrhea since 05/2018 4. Atrial fibrillation on anti-coagulation 5. Fever 6. Indeterminant colitis (Jun 2018) Plan: 1. IV Steroids started yesterday for fever, malaise and diarrhea with the clinical impression this may be vasculitis in nature. Some improvement 2. Plan is for EGD/Colonoscopy with biopsies after 48 hrs off anti-coagulation which will be Sunday AM to aid with diagnosis 3. Will continue steroids for now and monitor for improvement 4. Hold Humira for now (added as a steroid sparing agent for vasculitis) 09/17/18 23:24 Subjective: CC: Diarrhea better but ongoing. Mostly reports what he feels is gas pain. Fevers are better and he generally looks improved. Objective: Vital Signs Temp Pulse Resp BP Pulse Ox 36.3 C 102 H 25 H 117/73 99 09/17/18 23:05 09/17/18 23:05 09/17/18 23:05 09/17/18 23:05 09/17/18 23:05 Laboratory Results 09/17/18 04:13 09/17/18 04:13 09/16/18 09/17/18 09/18/18 05:59 05:59 05:59 Intake Total 1040 2704 1867 Output Total 76 1850 750 Balance 722 847 3907 PT 16.0 SEC (12.0-15.0) H 09/13/18 18:55 INR 1.34 (0.83-1.16) H 09/13/18 18:55 Physical Exam - Physical Exam General Appearance: no apparent distress, other (Chronically ill appearing) Respiratory: lungs clear Cardiac/Chest: tachycardia, irregularly irregular Abdomen: non-tender, soft, No distended, No guarding, No rebound, No ascites ICD10 Worksheet Patient Problems: Problems Problem Status Onset Atrial fibrillation Acute Dehydration Acute Fever Acute Myelodysplastic syndrome Acute
[2018-09-17] MEDS: SIMETHICONE 80 MG TAB CHEW PO PRN (23:51)
[2018-09-18 04:33] LABS: PLATELET COUNT 176 10^3/uL (150-400)
[2018-09-18] MEDS: methylPREDNISolone SOD SUCC 40 MG/ML VIAL IVP SCH ×3 (05:01→21:16)
[2018-09-18] MEDS: LEVOTHYROXINE 112 MCG TAB PO SCH (05:01)
[2018-09-18] MEDS: CEFEPIME HCL 2 GM in NS 100 ML IV SCH ×3 (05:01→21:01)
[2018-09-18] MEDS: BENZONATATE 100 MG CAP PO PRN (05:08)
[2018-09-18] MEDS: FOLIC ACID 1 MG TAB PO SCH (08:49)
[2018-09-18] MEDS: DILTIAZEM CD 180 MG CAP PO SCH (08:50)
[2018-09-18] MEDS: guaiFENesin 600 MG TAB.ER PO SCH ×2 (08:51→21:16)
[2018-09-18] MEDS: MULTIVITAMINS 1 EACH TAB PO SCH (08:51)
[2018-09-18] MEDS: FAMOTIDINE 20 MG TAB PO SCH ×2 (08:51→21:16)
[2018-09-18] MEDS: CYANO/VITAMIN B12 100 MCG TAB PO SCH (08:51)
[2018-09-18] MEDS: POTASSIUM CL 20 MEQ TAB PO SCH (08:52)
[2018-09-18] MEDS: NS 1,000 ML IV SCH (09:18)
--- NOTE | 2018-09-18 09:43 | HOSPPROG ---
Hospitalist Progress Note Assessment/Plan: DIAGNOSES: * Acute sepsis * Right lower lobe pneumonia in an immune compromised host, community-acquired * Rapid atrial fibrillation * Dehydration * Chronic diarrhea, uncertain etiology -stool studies repeatedly negative this month for any organisms -a recent colonoscopy showed mild colitis * Vasculitis * Myelodysplastic syndrome * Anemia, multifactorial largely due to MDS and vasculitis * Chronic diastolic CHF, stable at present * CKD, stable at present PLANS: * Continue current antibiotics * Continue titration of heart rate control * IV steroids * Anticoagulant currently held, anticipate colonoscopy/EGD 09/20 * Humira held * PT/OT * Follow blood cell counts closely I reviewed in detail today with Cardiology and will review with Dr. 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: Rapid AFib Exam: alert oriented looks weak and tired skin warm dry color ok resps not labored lungs clear BSs heart irregular and rapid abd soft mildly distended nontender, bowel sounds present limbs warm, small amount bipedal edema iv site ok LAB DATA: White blood cell count continues to decrease in good range, unchanged severe macrocytic anemia platelets stable Erythropoietin level ordered is pending MICROBIOLOGY: -blood cultures negative to date -GI pathogen panel negative PROCEDURES DURING THIS ADMISSION: -CT scan of chest showing right lower lobe pneumonia with small bilateral for -CT scan of abdomen showing mild diffuse colitis, diverticulosis, and some hernias containing fat Objective: Vital Signs Temp Pulse Resp BP Pulse Ox 36.3 C 97 16 123/74 H 96 09/18/18 08:00 09/18/18 08:50 09/18/18 08:00 09/18/18 08:50 09/18/18 08:00 Laboratory Results 09/18/18 04:12 09/17/18 04:13 09/17/18 09/18/18 09/19/18 06:59 06:59 06:59 Intake Total 2704 3094 Output Total 1850 1200 375 Balance 854 1894 -375 PT 16.0 SEC (12.0-15.0) H 09/13/18 18:55 INR 1.34 (0.83-1.16) H 09/13/18 18:55 - Time Spent With Patient Time Spent with Patient: greater than 35 minutes Time Spent with Patient: Greater than 35 minutes spent on this patients care, greater than 50% of time spent counseling, educating, and coordinating care regarding the above mentioned plan. ICD10 Worksheet Patient Problems: Problems Problem Status Onset Atrial fibrillation Acute Dehydration Acute Fever Acute Myelodysplastic syndrome Acute
[2018-09-18] MEDS: DIGOXIN 125 MCG TAB PO SCH (10:23)
[2018-09-18] MEDS ORDERED: PEG 3350/NA SULF,BICARB,CL/KCL (GAVILYTE-G) 4000 ML BTL PO ONE ×2 (10:42→18:00)
--- NOTE | 2018-09-18 10:45 | SOAPPROG ---
SOAP Progress Note Assessment/Plan: Assessment: 1. Myelodysplasia 2. 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 Chronic diarrhea since 05/2018 4. Atrial fibrillation on anti-coagulation 5. Fever 6. Indeterminant colitis (Jun 2018) Plan: 1. IV steroids have resolved his diarrhea. I suspect this is due to a small or large bowel vasculitis or autoimmune colitis 2. Adrenal insufficiency may also be possible 3. Plan is for EGD and Colonoscopy tomorrow for further evaluation 4. NPO after clear liquid breakfast 5. Split bowel prep 6. Procedures at 10:30 7. Hold Eliquis 09/18/18 10:43 Subjective: CC: No BM today. 1 soft BM yesterday. Overall feels better on steroids. Fever resolved also with IV steroids Objective: Vital Signs Temp Pulse Resp BP Pulse Ox 36.3 C 96 16 123/74 H 96 09/18/18 08:00 09/18/18 10:23 09/18/18 08:00 09/18/18 08:50 09/18/18 08:00 Laboratory Results 09/18/18 04:12 09/17/18 04:13 09/17/18 09/18/18 09/19/18 05:59 05:59 05:59 Intake Total 2704 3094 Output Total 1850 1200 375 Balance 854 1894 -375 PT 16.0 SEC (12.0-15.0) H 09/13/18 18:55 INR 1.34 (0.83-1.16) H 09/13/18 18:55 Physical Exam - Physical Exam General Appearance: no apparent distress EENT: pharynx normal Neck: supple Respiratory: normal breath sounds Cardiac/Chest: irregularly irregular Abdomen: normal bowel sounds, non-tender, soft, No distended, No guarding, No rebound ICD10 Worksheet Patient Problems: Problems Problem Status Onset Atrial fibrillation Acute Dehydration Acute Fever Acute Myelodysplastic syndrome Acute
[2018-09-18] MEDS: SIMETHICONE 80 MG TAB CHEW PO PRN ×3 (11:09→21:30)
[2018-09-18] MEDS ORDERED: FUROSEMIDE 20 MG/2 ML VIAL IVP ONE (11:16)
--- NOTE | 2018-09-18 11:28 | SOAPPROG ---
SOAP Progress Note Assessment/Plan: Assessment: 1. Community-acquired pneumonia. This is associated with sepsis. Currently on cefepime. This is being followed by the hospitalist service. 2. History of myelodysplastic syndrome. His counts have been stable. He has received a unit of packed red blood cells. 3. Chronic renal insufficiency. This appears to be stable at the present time. 4. Chronic diarrhea. GI consult pending. 5. Paroxysmal atrial fibrillation. He is in atrial fibrillation currently with suboptimal heart rate controls. His hemodynamics are a little soft at the present time. He is on systemic anticoagulation in the form of Eliquis. 6. Nonsustained VT. This is noted on telemetry. This has been asymptomatic. His ejection fraction is normal. 09/17/2018: Clinically he has shown significant improvement over the last 24 hr. His heart rates in atrial fibrillation are suboptimally controlled however asymptomatic at the present time. 09/18/2018: Heart rates are much improved currently. He is asymptomatic with respect to his atrial fibrillation. His chads Vasc score is 3. As result, historically, he has been treated with systemic anticoagulation currently on hold for the planned EGD and colonoscopy tomorrow. He has developed bilateral lower extremity edema with documented weight gain. Plan: 1. I have given him a dose of IV Lasix today. 2. We will plan to continue Cardizem and digoxin for rate control. 3. Hopefully, we can curtail IV fluids as he is starting to become edematous. 4. We will follow along with you. 09/18/18 11:26 Subjective: He continues to show daily improvement. He notes no significant dyspnea at the present time. Cough and diarrhea have both improved. He is in atrial fibrillation with controlled heart rates. Plans are for EGD and colonoscopy tomorrow. Objective: Vital Signs Temp Pulse Resp BP Pulse Ox 36.3 C 96 16 123/74 H 96 09/18/18 08:00 09/18/18 10:23 09/18/18 08:00 09/18/18 08:50 09/18/18 08:00 Laboratory Results 09/18/18 04:12 09/17/18 04:13 09/17/18 09/18/18 09/19/18 05:59 05:59 05:59 Intake Total 2704 3094 Output Total 1850 1200 375 Balance 854 1894 -375 PT 16.0 SEC (12.0-15.0) H 09/13/18 18:55 INR 1.34 (0.83-1.16) H 09/13/18 18:55 Physical Exam - Physical Exam General Appearance: WD/WN, alert, no apparent distress EENT: PERRL/EOMI, normal ENT inspection, pharynx normal, TMs normal Neck: non-tender, full range of motion, supple, normal inspection Respiratory: chest non-tender, lungs clear, normal breath sounds Cardiac/Chest: normal peripheral pulses, edema (Bipedal edema), irregularly irregular Peripheral Pulses: 2+: carotid (R), carotid (L), femoral (R), femoral (L), dorsalis-pedis (R), dorsalis-pedis (L) Abdomen: normal bowel sounds, non-tender, soft Male Genitalia: deferred Rectal: deferred Back: Normal inspection Skin: normal color, warm/dry Lymphatic: no adenopathy Extremities: normal range of motion, non-tender, normal inspection, normal capillary refill Neuro/Psych: no motor/sensory deficits, alert, normal mood/affect, oriented x 3 ICD10 Worksheet Patient Problems: Problems Problem Status Onset Atrial fibrillation Acute Dehydration Acute Fever Acute Myelodysplastic syndrome Acute
--- NOTE | 2018-09-18 11:31 | ASMTCMCOM ---
CM Note CM Note Notes: Pts case discussed in tx rounds. Pt is scheduled to have a colonoscopy and EGD tomorrow at 10:30AM. Pt will d/c home with [facility] PT and RN when medically stable. CM to follow. Plan: [facility]; PT, RN Date Signed: 09/18/2018 11:30 AM Electronically Signed By:YOSVANY Mcbride
--- NOTE | 2018-09-18 12:41 | SOAPPROG ---
SOAP Progress Note Assessment/Plan: A/P: 1. Diarrhea: Vascultis? Inflammatory? Colonoscopy planned. 2. RLL pneumonia. 3. Undifferentiated myelodysplastic syndrome with mild pancytopenia-low risk IPSS 4. Small vessel vasculitis. 5. A fib Plan: 1. Transfuse prn. 2. Colonoscopy per GI. 09/18/18 12:39 Subjective: O: VS reviewed. Laboratory Tests 09/18/18 04:12 WBC 7.65 Hgb 7.6 L Plt Count 176 Objective: Vital Signs Temp Pulse Resp BP Pulse Ox 36.3 C 107 H 14 131/97 H 96 09/18/18 12:00 09/18/18 12:00 09/18/18 12:00 09/18/18 12:00 09/18/18 12:00 Laboratory Results 09/18/18 04:12 09/17/18 04:13 09/17/18 09/18/18 09/19/18 05:59 05:59 05:59 Intake Total 2704 3094 Output Total 1850 1200 375 Balance 854 1894 -375 PT 16.0 SEC (12.0-15.0) H 09/13/18 18:55 INR 1.34 (0.83-1.16) H 09/13/18 18:55 ICD10 Worksheet Patient Problems: Problems Problem Status Onset Atrial fibrillation Acute Dehydration Acute Fever Acute Myelodysplastic syndrome Acute
[2018-09-18] MEDS: ACETAMINOPHEN 325 MG TAB PO PRN (18:03)
[2018-09-18] MEDS: TERAZOSIN HCL 5 MG CAP PO SCH (21:16)
[2018-09-19] MEDS: traZODone 50 MG TAB PO PRN ×2 (01:04→22:33)
[2018-09-19] MEDS: CEFEPIME HCL 2 GM in NS 100 ML IV SCH ×2 (03:13→12:56)
[2018-09-19] MEDS: ACETAMINOPHEN 325 MG TAB PO PRN ×4 (03:24→22:33)
[2018-09-19] MEDS: LEVOTHYROXINE 112 MCG TAB PO SCH (03:24)
[2018-09-19] MEDS: methylPREDNISolone SOD SUCC 40 MG/ML VIAL IVP SCH ×3 (06:34→22:32)
[2018-09-19] MEDS: CYANO/VITAMIN B12 100 MCG TAB PO SCH (08:15)
[2018-09-19] MEDS: FAMOTIDINE 20 MG TAB PO SCH ×2 (08:15→20:20)
[2018-09-19] MEDS: DILTIAZEM CD 180 MG CAP PO SCH (08:16)
[2018-09-19] MEDS: FOLIC ACID 1 MG TAB PO SCH (08:16)
[2018-09-19] MEDS: MULTIVITAMINS 1 EACH TAB PO SCH (08:17)
[2018-09-19] MEDS: guaiFENesin 600 MG TAB.ER PO SCH ×2 (08:17→20:20)
[2018-09-19] MEDS: POTASSIUM CL 20 MEQ TAB PO SCH (08:17)
[2018-09-19] MEDS: DIGOXIN 125 MCG TAB PO SCH (09:05)
[2018-09-19] MEDS: oxyCODONE IR 5 MG TAB PO PRN (09:55)
[2018-09-19] MEDS ORDERED: NS 500 ML IV PRN (10:17)
[2018-09-19] MEDS ORDERED: NALOXONE HCL 0.4 MG/ML INJ IVP PRN (10:17)
[2018-09-19] MEDS ORDERED: ALBUTEROL 3 ML DEYVIAL IH PRN (10:17)
[2018-09-19] MEDS ORDERED: ONDANSETRON 4 MG/2 ML VIAL IVP PRN (10:17)
[2018-09-19] MEDS ORDERED: fentaNYL 100 MCG/2 ML INJ IVP PRN (10:17)
--- NOTE | 2018-09-19 10:17 | PDANEPAE ---
ANE History of Present Illness here for egd/colon ANE Past Medical History - Cardiovascular History Hx Hypertension: No Hx Arrhythmias: Yes Hx Chest Pain: No Hx Coronary Artery / Peripheral Vascular Disease: No Hx CHF / Valvular Disease: Yes Hx Palpitations: No Cardiovascular History Comment: h/o afib, vasculitis, CHF - Pulmonary History Hx COPD: No Hx Asthma/Reactive Airway Disease: No Hx Recent Upper Respiratory Infection: No Hx Oxygen in Use at Home: No Hx Sleep Apnea: Yes - Endocrine History Hx Diabetes: No - Renal History Hx Renal Disorders: No - Liver History Hx Hepatic Disorders: No - Cancer History Hx Cancer: Yes Cancer History Comment: myelodysplastic syndrome - Congenital Disorder History Hx 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 - GI History Hx Gastrointestinal Disorders: Yes Gastrointestinal History Comment: diarrhea weight loss anemia - Chronic Pain History Chronic Pain: No ANE Review of Systems Review of Systems: ANE Patient History - Allergies Allergies/Adverse Reactions: lisinopril [From Zestril] Allergy (Severe, Verified 03/31/17 09:06) Swelling/neck,face,throat codeine Allergy (Verified 03/31/17 09:06) neck swelling minocycline Allergy (Verified 09/13/18 21:36) Other-Enter Comments - Home Medications Home medications: home medication list seen and reviewed Home Medications: Acetaminophen [Tylenol ES 500 mg (*)] 1,000 mg PO Q6 PRN 03/31/17 [Last Taken Unknown] Cyanocobalamin [Vitamin B12 (*)] 100 mcg PO DAILY 03/31/17 [Last Taken 09/13/18] LORazepam [Ativan (*)] 1 mg PO TID PRN 03/31/17 [Last Taken 09/12/18] Metoprolol Tartrate [Lopressor 25 mg (*)] 12.5 mg PO BID 03/31/17 [Last Taken ] Multivitamins [Multivitamin (*)] 1 each PO DAILY 03/31/17 [Last Taken Unknown] Ranitidine HCl [Zantac] 150 mg PO BID 03/31/17 [Last Taken 09/13/18 AM] Terazosin HCl 10 mg PO HS 03/31/17 [Last Taken Unknown] Tetracycline HCl 250 mg PO TID PRN #0 03/31/17 [Last Taken Unknown] Apixaban [Eliquis] 2.5 mg PO BID 09/13/18 [Last Taken 09/13/18 AM] Diphenoxylate HCl/Atrop Sulf [Lomotil Tab (*)] 2 tab PO QID PRN 09/13/18 [Last Taken Unknown] Folic Acid [Folic Acid 1 MG (*)] 1 mg PO DAILY 09/13/18 [Last Taken Unknown] Herbals/Supplements -Info Only 1 ea PO DAILY 09/13/18 [Last Taken Unknown] Levothyroxine [Synthroid 112 mcg (*)] 112 mcg PO DAILY06 09/13/18 [Last Taken ] Multivitamins [Multivitamin (*)] 1 each PO DAILY 09/13/18 [Last Taken Unknown] predniSONE 5 mg PO DAILY 09/13/18 [Last Taken Unknown] - NPO status NPO Status: no food or drink >8 hours - Smoking Hx Smoking Status: Former smoker - Alcohol Use Alcohol Use: Occasionally ANE Labs/Vital Signs - Labs Result Diagrams: 09/18/18 04:12 09/17/18 04:13 - Vital Signs Vital Signs: reviewed preoperatively; see RN documention for details Blood Pressure: 111/84 Heart Rate: 94 Respiratory Rate: 19 O2 Sat (%): 95 Height: 185.42 cm Weight: 102.7 kg
[2018-09-19] MEDS ORDERED: PROPOFOL/EMULSION 500 MG/50 ML BOTTLE IV ONE (10:29)
--- NOTE | 2018-09-19 10:50 | GIREPORT ---
[facility] Surgical Services - Endoscopy Department Patient Name: Jose Miguel Oro Procedure Date: 09/19/2018 10:19 AM Patient Type: Inpatient Attending MD/ ER Physician: Ted Luna MD Procedure: Upper GI endoscopy Indications: Abdominal pain in the left upper quadrant, Heartburn, Diarrhea Providers: Ted Luna MD Medicines: Propofol per Anesthesia Complications: No immediate complications. Description of Procedure: After obtaining informed consent, the endoscope was passed under direct vision. Throughout the procedure, the patient's blood pressure, pulse, and oxygen saturations were monitored continuously. The Endoscope was intro duced through the mouth, and advanced to the second part of duodenum. The [facility] er GI endoscopy was accomplished without difficulty. The patient tolerated th e procedure well. Findings: Patchy, white plaques were found in the middle third of the esophagus a nd in the lower third of the esophagus. Biopsies were taken with a cold force ps for histology. Diffuse moderate inflammation characterized by erythema, friability and granularity was found in the entire examined stomach. Biopsies were lv en with a cold forceps for histology. The duodenal bulb, first portion of the duodenum and second portion of the duodenum were normal. Biopsies for histology were taken with a cold for ceps for evaluation of celiac disease. Estimated Blood Loss: Estimated blood loss was minimal. Post Op Diagnosis: - Esophageal plaques were found, suspicious for candidiasis. Biopsied. - Chronic gastritis. Biopsied. - Normal duodenal bulb, first portion of the duodenum and second portio n of the duodenum. Biopsied. Recommendation: - Await pathology results. - Perform a colonoscopy today. - Return patient to [facility] for ongoing care. - Advance diet as tolerated. - Thank you for allowing me to be involved in the care of your patient. Attending Participation: I personally performed the entire procedure without the assistance of a fellow, resident or surg ical assistant sales director. eTd Luna MD Ted Luna MD 09/19/2018 10:49:42 AM This report has been signed electronicallyDavid MD Cheryl Number of Addenda: 0 Note Initiated On: 09/19/2018 10:19 AM [email or web address]
[2018-09-19] MEDS ORDERED: PHENYLEPHRINE HCL 100 MCG/ML SYR ONE (10:59)
--- NOTE | 2018-09-19 11:12 | GIREPORT ---
[facility] Surgical Services - Endoscopy Department Patient Name: Jose Miguel Oro Procedure Date: 09/19/2018 10:20 AM Patient Type: Inpatient Attending MD/ ER Physician: Ted Luna MD Procedure: Colonoscopy Indications: Chronic diarrhea, Colitis Providers: Ted Luna MD Medicines: Propofol per Anesthesia Complications: No immediate complications. Description of Procedure: After obtaining informed consent, the scope was passed under direct vis ion. Throughout the procedure, the patient's blood pressure, pulse, and oxyg en saturations were monitored continuously. The Colonoscope with irrigatio n channel was introduced through the anus and advanced to the cecum, identified by appendiceal orifice and ileocecal valve. The colonoscopy was performed without difficulty. The patient tolerated the procedure well. The quality of the bowel preparation was good. The ileocecal valve, appendi ceal orifice, and rectum were photographed. Findings: The digital rectal exam findings include non-thrombosed external hemorrhoids. Pertinent negatives include no palpable rectal lesions. A segmental and patchy area of moderately altered vascular, friable (wi th contact bleeding), granular, nodular and ulcerated mucosa was found in the rectum, in the sigmoid colon, in the descending colon and in the ascend ing colon. Biopsies were taken with a cold forceps for histology. Multiple small and large-mouthed diverticula were found in the sigmoid colon. Estimated Blood Loss: Estimated blood loss was minimal. Post Op Diagnosis: - Non-thrombosed external hemorrhoids found on digital rectal exam. - Altered vascular, friable (with contact bleeding), granular, nodular and ulcerated mucosa in the rectum, in the sigmoid colon, in the descending colon and in the ascending colon. Biopsied. - Diverticulosis in the sigmoid colon. - The exam is highly suspicious for crohn's colitis. It could also repr esent an NSAID or healing ischemic colitis but the endoscopic features of jim per serpiginous ulceration favors crohn's disease. Recommendation: - Await pathology results. - Hold anti-coagulation for another 2 days with all of the biopsy work done today - Continue IV solumedrol for now with plans to bridge to oral steroid (prednisone 40mg daily) - Will consider re-induction with Humira or possible Stelara pending bi opsy results - Diet as tolerated - Return to hospital floor today for ongoing care. - Thank you for allowing me to be involved in the care of your patient. Attending Participation: I personally performed the entire procedure without the assistance of a fellow, resident or surg ical assistant professor of spanish. Ted Luna MD Ted Luna MD 09/19/2018 11:11:34 AM This report has been signed electronicallyDavid MD Cheryl Number of Addenda: 0 Note Initiated On: 09/19/2018 10:20 AM Total Procedure Duration Time 0 hours 11 minutes 2 seconds [email or web address]
--- NOTE | 2018-09-19 11:19 | POSTANESTH ---
Post Anesthetic Evaluation Cardiovascular Status: Normal, Stable (AF CHRONIC) Respiratory Status: Normal, Stable Level of Consciousness/Mental Status: Can Participate in Eval Pain Control: Adequate, Prn Tx Ordered Nausea/Vomiting Control: Adequate, Prn Tx Ordered Complications Possibly Related to Anesthesia: None Noted
[2018-09-19] MEDS ORDERED: fentaNYL 100 MCG/2 ML INJ ONE (11:25)
[2018-09-19] MEDS: SIMETHICONE 80 MG TAB CHEW PO PRN (12:56)
--- NOTE | 2018-09-19 13:59 | HOSPPROG ---
Hospitalist Progress Note Assessment/Plan: DIAGNOSES: * Acute sepsis - now resolved * Right lower lobe pneumonia in an immune compromised host, community-acquired; associated with the right > left pleural effusion * Rapid atrial fibrillation, paroxysmal - still too rapid with heart rates in the 110-160 range despite marked improvement in infectious illness and ongoing prednisone for his colitis, needs better rate control * Dehydration, resolved * Nonsustained VT on crankshaft grinder, no recurrence today * Suspect Crohn's is the cause of his colitis based on endoscopy, biopsies pending to rule out ischemic or other cause; notably Humira was not controlling this disease in the outpatient setting * ? 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 * Myelodysplastic syndrome with abnormal cell counts * Anemia, fairly severe hemoglobin 7-8; multifactorial largely due to MDS but worse due to vasculitis and Crohn's * Chronic diastolic CHF, stable at present * CKD, stable at present * Obstructive sleep apnea PLANS: * Will switch to oral antibiotics today * Continue titration of heart rate control medication - will give initial 30 mg of diltiazem orally right now and if this is effective will increase his daily dose to 240; if not effective will try some beta-mehran * Continue IV steroids for now * Await pathology from EGD and colonoscopy; will need outpatient follow-up for instituting therapy for his colon, may also need treatment for esophageal plaques * Plan on resuming anticoagulation in 2 days as per Gastroenterology recommendation * Humira held due to pneumonia; this medicine may need to change due to new diagnosis of Crohn's if that is confirmed by biopsy, it clearly was not helping the colitis * PT/OT * Follow blood cell counts closely, consider transfusion for hemoglobin less than 7 as per Hematology recommendation Seen by me today on hospitalist rounds as well as multidisciplinary rounds SUBJECTIVE: Feels quite weak and tired Continues to have diarrhea with intermittent cramping abdominal pain, no bleeding OBJECTIVE Vitals reviewed: AFib heart rates variable but range 110-170 today, blood pressures and respirations stable, no fever 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/Medical Director, my review: Rapid AFib Exam: alert oriented looks weak and tired skin warm dry color ok resps not labored lungs clear BSs heart irregular and rapid abd soft mildly distended nontender, bowel sounds present limbs warm, small amount bipedal edema iv site ok LAB DATA: White blood cell count continues to decrease in good range, unchanged severe macrocytic anemia platelets stable Erythropoietin level ordered is pending MICROBIOLOGY: -blood cultures negative to date -GI pathogen panel negative PROCEDURES DURING THIS ADMISSION: -CT scan of chest showing right lower lobe pneumonia with small bilateral for -CT scan of abdomen showing mild diffuse colitis, diverticulosis, and some hernias containing fat -EGD on 09/19 showing esophageal plaques potentially consistent with candidiasis , pathology pending -colonoscopy on 09/19 showing marked good colitis with features most consistent with Crohn's but possibility of ischemic colitis also considered, pathology pending -Echo with 50-55% ejection fraction, pulmonary hypertension at 44 Objective: Vital Signs Temp Pulse Resp BP Pulse Ox 36.1 C 133 H 13 106/73 96 09/19/18 12:00 09/19/18 12:00 09/19/18 12:00 09/19/18 12:00 09/19/18 12:00 Laboratory Results 09/18/18 04:12 09/17/18 04:13 09/18/18 09/19/18 09/20/18 06:59 06:59 06:59 Intake Total 3094 2081 600 Output Total 1200 2250 150 Balance 1894 -169 450 PT 16.0 SEC (12.0-15.0) H 09/13/18 18:55 INR 1.34 (0.83-1.16) H 09/13/18 18:55 - Time Spent With Patient Time Spent with Patient: greater than 35 minutes Time Spent with Patient: Greater than 35 minutes spent on this patients care, greater than 50% of time spent counseling, educating, and coordinating care regarding the above mentioned plan. ICD10 Worksheet Patient Problems: Problems Problem Status Onset Atrial fibrillation Acute Dehydration Acute Fever Acute Myelodysplastic syndrome Acute
[2018-09-19] MEDS ORDERED: DILTIAZEM 30 MG TAB PO ONE (14:28)
[2018-09-19] MEDS ORDERED: AZITHROMYCIN 250 MG TAB PO ONE (14:37)
--- NOTE | 2018-09-19 18:46 | SOAPPROG ---
SOAP Progress Note Assessment/Plan: Assessment: 1. Undifferentiated myelodysplastic syndrome-low risk IPSS 2. Macrocytic Anemia-multifactorial due to MDS, possible Chron's, vasculitis, B12/ferritin ok. SPEP with ? M spike, epo pending 2. Colitis-s/p colonoscopy today. biopsies pending. 3. Esophageal plaques-await biopsy 3. Pneumonia in immunocompromised host 4. Small vessel vasculitis-has been on Humira 5. A. fib Plan: 1. Transfuse for hgb less than 7 or for symptoms. 2. Will check light chains given ? m spike 3. Follow up on epo level. 09/19/18 18:58 Subjective: sleepy Objective: Vital Signs Temp Pulse Resp BP Pulse Ox 36.1 C 109 H 20 102/73 95 09/19/18 15:28 09/19/18 15:28 09/19/18 15:28 09/19/18 15:28 09/19/18 15:28 Laboratory Results 09/18/18 04:12 09/17/18 04:13 09/18/18 09/19/18 09/20/18 05:59 05:59 05:59 Intake Total 3094 750 2331 Output Total 1200 2250 150 Balance 1894 -1500 2181 PT 16.0 SEC (12.0-15.0) H 09/13/18 18:55 INR 1.34 (0.83-1.16) H 09/13/18 18:55 Physical Exam - Physical Exam General Appearance: other (sleepy) Abdomen: non-tender, soft ICD10 Worksheet Patient Problems: Problems Problem Status Onset Atrial fibrillation Acute Dehydration Acute Fever Acute Myelodysplastic syndrome Acute
[2018-09-19] MEDS: TERAZOSIN HCL 5 MG CAP PO SCH (20:20)
[2018-09-20] MEDS: LORazepam 1 MG TAB PO PRN (01:43)
[2018-09-20] MEDS: methylPREDNISolone SOD SUCC 40 MG/ML VIAL IVP SCH ×2 (05:19→14:28)
[2018-09-20] MEDS: LEVOTHYROXINE 112 MCG TAB PO SCH (05:19)
[2018-09-20] MEDS: FOLIC ACID 1 MG TAB PO SCH (09:11)
[2018-09-20] MEDS: POTASSIUM CL 20 MEQ TAB PO SCH (09:11)
[2018-09-20] MEDS: FAMOTIDINE 20 MG TAB PO SCH ×2 (09:11→19:51)
[2018-09-20] MEDS: DIGOXIN 125 MCG TAB PO SCH (09:11)
[2018-09-20] MEDS: MULTIVITAMINS 1 EACH TAB PO SCH (09:12)
[2018-09-20] MEDS: guaiFENesin 600 MG TAB.ER PO SCH ×2 (09:12→19:51)
[2018-09-20] MEDS: CYANO/VITAMIN B12 100 MCG TAB PO SCH (09:12)
[2018-09-20] MEDS: AZITHROMYCIN 250 MG TAB PO SCH (09:12)
[2018-09-20] MEDS: DILTIAZEM CD 120 MG CAP PO SCH ×2 (09:25→19:51)
[2018-09-20] MEDS: SIMETHICONE 80 MG TAB CHEW PO PRN ×2 (09:26→19:56)
--- NOTE | 2018-09-20 10:00 | SOAPPROG ---
SOAP Progress Note Assessment/Plan: Assessment: 1. Community-acquired pneumonia. This is associated with sepsis. Currently on cefepime. This is being followed by the hospitalist service. 2. History of myelodysplastic syndrome. His counts have been stable. He has received a unit of packed red blood cells. 3. Chronic renal insufficiency. This appears to be stable at the present time. 4. Chronic diarrhea. GI consult pending. 5. Paroxysmal atrial fibrillation. He is in atrial fibrillation currently with suboptimal heart rate controls. His hemodynamics are a little soft at the present time. He is on systemic anticoagulation in the form of Eliquis. 6. Nonsustained VT. This is noted on telemetry. This has been asymptomatic. His ejection fraction is normal. 09/17/2018: Clinically he has shown significant improvement over the last 24 hr. His heart rates in atrial fibrillation are suboptimally controlled however asymptomatic at the present time. 09/18/2018: Heart rates are much improved currently. He is asymptomatic with respect to his atrial fibrillation. His chads Vasc score is 3. As result, historically, he has been treated with systemic anticoagulation currently on hold for the planned EGD and colonoscopy tomorrow. He has developed bilateral lower extremity edema with documented weight gain. 09/20/2018: He is stable with respect to his atrial fibrillation. Rate control could be a little bit improved however overall is not bad. He has no cardiac symptoms at the present time. Plan: 1. I have increased his diltiazem up to 120 mg twice daily. 2. We will plan to continue his digoxin. 3. Systemic anticoagulation can be reinstituted today. 4. We will follow along. Subjective: He states he is doing a little bit better today. He underwent EGD and colonoscopy yesterday without complications. His heart rates have been borderline control with resting atrial fibrillation rates in the low 100s and 1 teens. He notes no chest pain or significant palpitations. Objective: Vital Signs Temp Pulse Resp BP Pulse Ox 36.4 C 108 H 10 L 108/86 H 99 09/20/18 07:20 09/20/18 09:11 09/20/18 07:20 09/20/18 07:20 09/20/18 07:20 Laboratory Results 09/18/18 04:12 09/17/18 04:13 09/19/18 09/20/18 09/21/18 05:59 05:59 05:59 Intake Total 750 2681 Output Total 2250 370 Balance -1500 2311 PT 16.0 SEC (12.0-15.0) H 09/13/18 18:55 INR 1.34 (0.83-1.16) H 09/13/18 18:55 Physical Exam - Physical Exam General Appearance: WD/WN, no apparent distress Respiratory: chest non-tender, lungs clear Cardiac/Chest: irregularly irregular, No edema, No gallop, No JVD Peripheral Pulses: 2+: carotid (R), carotid (L) Abdomen: normal bowel sounds, non-tender, soft Neuro/Psych: alert, oriented x 3 ICD10 Worksheet Patient Problems: Problems Problem Status Onset Atrial fibrillation Acute Dehydration Acute Fever Acute Myelodysplastic syndrome Acute
[2018-09-20] MEDS: DILTIAZEM CD 180 MG CAP PO SCH (10:17)
--- NOTE | 2018-09-20 10:22 | HOSPPROG ---
Hospitalist Progress Note Assessment/Plan: DIAGNOSES: * Acute sepsis - now resolved * Right lower lobe pneumonia in an immune compromised host, community-acquired; associated with the right > left pleural effusion * Rapid atrial fibrillation, paroxysmal - still too rapid with heart rates in the 110-160 range despite marked improvement in infectious illness and ongoing prednisone for his colitis, needs better rate control * Dehydration, resolved * Nonsustained VT on monitoring coordinator, no recurrence today * Suspect Crohn's is the cause of his colitis based on endoscopy, biopsies pending to rule out ischemic or other cause; notably Humira was not controlling this disease in the outpatient setting * ? 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 * Myelodysplastic syndrome with abnormal cell counts * Anemia, fairly severe hemoglobin 7-8; multifactorial largely due to MDS but worse due to vasculitis and Crohn's * Chronic diastolic CHF, stable at present * CKD, stable at present * Obstructive sleep apnea PLANS: * continue oral antibiotics * diltiazem increased further to 120 bid - if does not improve rate will add B mehran * Continue IV steroids for now * Await pathology from EGD and colonoscopy; will need outpatient follow-up for instituting therapy for his colon, may also need treatment for esophageal plaques * Plan on resuming anticoagulation tomorrow as per Gastroenterology recommendation * Humira held due to pneumonia; this medicine may need to change due to new diagnosis of Crohn's if that is confirmed by biopsy, it clearly was not helping the colitis * I will DC ativan (used as sleep aid) due to higher risk of falls; will try higher dose of trazodone * PT/OT * Follow blood cell counts closely, consider transfusion for hemoglobin less than 7 as per Hematology recommendation Seen by me today on hospitalist rounds as well as multidisciplinary rounds reviewed w Dr Hawk. 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: Rapid AFib Exam: alert oriented looks weak and tired skin warm dry color ok resps not labored lungs clear BSs heart irregular and rapid abd soft mildly distended nontender, bowel sounds present limbs warm, small amount bipedal edema iv site ok MICROBIOLOGY: -blood cultures negative to date -GI pathogen panel negative PROCEDURES DURING THIS ADMISSION: -CT scan of chest showing right lower lobe pneumonia with small bilateral for -CT scan of abdomen showing mild diffuse colitis, diverticulosis, and some hernias containing fat -EGD on 09/19 showing esophageal plaques potentially consistent with candidiasis , pathology pending -colonoscopy on 09/19 showing marked good colitis with features most consistent with Crohn's but possibility of ischemic colitis also considered, pathology pending -Echo with 50-55% ejection fraction, pulmonary hypertension at 44 Objective: Vital Signs Temp Pulse Resp BP Pulse Ox 36.4 C 108 H 10 L 108/86 H 99 09/20/18 07:20 09/20/18 09:11 09/20/18 07:20 09/20/18 07:20 09/20/18 07:20 Laboratory Results 09/18/18 04:12 09/17/18 04:13 09/19/18 09/20/18 09/21/18 06:59 06:59 06:59 Intake Total 2081 1350 Output Total 2250 370 Balance -169 980 PT 16.0 SEC (12.0-15.0) H 09/13/18 18:55 INR 1.34 (0.83-1.16) H 09/13/18 18:55 - Time Spent With Patient Time Spent with Patient: greater than 35 minutes Time Spent with Patient: Greater than 35 minutes spent on this patients care, greater than 50% of time spent counseling, educating, and coordinating care regarding the above mentioned plan. ICD10 Worksheet Patient Problems: Problems Problem Status Onset Atrial fibrillation Acute Dehydration Acute Fever Acute Myelodysplastic syndrome Acute
[2018-09-20] MEDS: ACETAMINOPHEN 325 MG TAB PO PRN ×3 (11:21→19:56)
--- NOTE | 2018-09-20 14:08 | ASMTCMCOM ---
CM Note CM Note Notes: 09/20/2018 Case Management Note Discussed in rounds this morning. Changing medications to address heart rate control. Discussed w/PT who recommends cardiac rehab after home care completed. Left VM with Dr. Granados (pt PCP) patient care provider Karissa Abdullahi (ext [phone]) requesting follow up appointment and to alert to need for cardiac rehab. Updated [facility] on the phone. Pt Brendan can be reached at [phone]. Case Management d/c poc: [facility] RN PT OT Case Management to follow. Date Signed: 09/20/2018 02:08 PM Electronically Signed By:Rajani Zamarripa RN
--- NOTE | 2018-09-20 14:21 | SOAPPROG ---
SOAP Progress Note Assessment/Plan: A/P: 1. Undifferentiated myelodysplastic syndrome: low risk IPSS 2. Macrocytic Anemia: multifactorial due to MDS, possible Chron's, vasculitis, B12/ferritin ok. SPEP with ? M spike, epo pending, light chains pending. 2. Colitis: suspicious for Chron's, bx pending. 3. Probably esophageal Deana. 3. Pneumonia in immunocompromised host 4. 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 If Chron's, will need change in mgmt. 5. A. fib Plan: 1. Transfuse for hgb less than 7 or for symptoms. 2. F/u with Dr. Martinez after d/c. 09/20/18 14:19 Subjective: GI eval noted. VS reviewed. No CBC today. Objective: Vital Signs Temp Pulse Resp BP Pulse Ox 36.7 C 112 H 17 130/90 H 96 09/20/18 11:27 09/20/18 11:27 09/20/18 11:27 09/20/18 11:27 09/20/18 11:27 Laboratory Results 09/18/18 04:12 09/17/18 04:13 09/19/18 09/20/18 09/21/18 05:59 05:59 05:59 Intake Total 750 2681 400 Output Total 2250 370 180 Balance -1500 2311 220 PT 16.0 SEC (12.0-15.0) H 09/13/18 18:55 INR 1.34 (0.83-1.16) H 09/13/18 18:55 ICD10 Worksheet Patient Problems: Problems Problem Status Onset Atrial fibrillation Acute Dehydration Acute Fever Acute Myelodysplastic syndrome Acute
--- NOTE | 2018-09-20 14:39 | SOAPPROG ---
SOAP Progress Note Assessment/Plan: Assessment: 1. Myelodysplasia 2. 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 Chronic diarrhea since 05/2018 4. Atrial fibrillation on anti-coagulation 5. Fever 6. Crohns Plan: 1. I feel Mr. Oro has crohn's colitis as the cause for his diarrhea 2. Bridge to PO prednisone 40mg daily 3. Outpatient remicaid induction once pneumonia improved with then steroid tapering 4. Ok to discharge once stable from a cardiovascular standpoint Call with questions 09/20/18 14:37 Subjective: CC: Diarrhea Improved. No BM since colonoscopy which was consistent with IBD (crohn's colitis ) Objective: Vital Signs Temp Pulse Resp BP Pulse Ox 36.7 C 112 H 17 130/90 H 96 09/20/18 11:27 09/20/18 11:27 09/20/18 11:27 09/20/18 11:27 09/20/18 11:27 Laboratory Results 09/18/18 04:12 09/17/18 04:13 09/19/18 09/20/18 09/21/18 05:59 05:59 05:59 Intake Total 750 2681 400 Output Total 2250 370 180 Balance -1500 2311 220 PT 16.0 SEC (12.0-15.0) H 09/13/18 18:55 INR 1.34 (0.83-1.16) H 09/13/18 18:55 Physical Exam - Physical Exam General Appearance: WD/WN, no apparent distress EENT: normal ENT inspection Neck: supple Respiratory: lungs clear Cardiac/Chest: irregularly irregular Abdomen: non-tender, soft, No distended, No guarding, No rebound ICD10 Worksheet Patient Problems: Problems Problem Status Onset Atrial fibrillation Acute Dehydration Acute Fever Acute Myelodysplastic syndrome Acute
[2018-09-20] MEDS: traZODone 100 MG TAB PO SCH (19:51)
[2018-09-20] MEDS: TERAZOSIN HCL 5 MG CAP PO SCH (19:52)
[2018-09-21] MEDS: LEVOTHYROXINE 112 MCG TAB PO SCH (05:56)
[2018-09-21 05:59] LABS: PLATELET COUNT 192 10^3/uL (150-400)
[2018-09-21] MEDS: DILTIAZEM CD 120 MG CAP PO SCH ×2 (08:24→20:23)
[2018-09-21] MEDS: AZITHROMYCIN 250 MG TAB PO SCH (08:24)
[2018-09-21] MEDS: DIGOXIN 125 MCG TAB PO SCH (08:24)
[2018-09-21] MEDS: ACETAMINOPHEN 325 MG TAB PO PRN (08:24)
[2018-09-21] MEDS: FOLIC ACID 1 MG TAB PO SCH (08:24)
[2018-09-21] MEDS: CYANO/VITAMIN B12 100 MCG TAB PO SCH (08:25)
[2018-09-21] MEDS: predniSONE 20 MG TAB PO SCH (08:25)
[2018-09-21] MEDS: FAMOTIDINE 20 MG TAB PO SCH ×2 (08:25→20:22)
[2018-09-21] MEDS: POTASSIUM CL 20 MEQ TAB PO SCH (08:25)
[2018-09-21] MEDS: guaiFENesin 600 MG TAB.ER PO SCH ×2 (08:25→20:22)
[2018-09-21] MEDS: MULTIVITAMINS 1 EACH TAB PO SCH (08:25)
[2018-09-21] MEDS ORDERED: METOPROLOL TARTRATE 25 MG TAB PO SCH (10:00)
--- NOTE | 2018-09-21 10:01 | HOSPPROG ---
Hospitalist Progress Note Assessment/Plan: DIAGNOSES: * Acute sepsis - now resolved * Right lower lobe pneumonia in an immune compromised host, community-acquired; associated with the right > left pleural effusion * Rapid atrial fibrillation, paroxysmal - still too rapid with heart rates in the 110-160 range despite marked improvement in infectious illness and ongoing prednisone for his colitis, needs better rate control * Dehydration, resolved * Nonsustained VT on quality assurance monitor chassis, no recurrence today * Suspect Crohn's is the cause of his colitis based on endoscopy, biopsies pending to rule out ischemic or other cause; notably Humira was not controlling this disease in the outpatient setting * ? 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 at this time * Restart Eliquis now * Humira will be discontinued, probably start Remicade for colitis after pathology known will be started * Ativan discontinued (used as sleep aid at home) due to higher risk of falls; will try higher dose of trazodone * PT/OT * Follow blood cell counts closely, consider transfusion for hemoglobin less than 7 as per Hematology recommendation Plan on discharge to home once heart rate control is stabilized Seen by me today on hospitalist rounds as well as multidisciplinary rounds reviewed w Dr Hawk. SUBJECTIVE: Feels quite weak and tired no stools yet since colonoscopy no bleeding noted OBJECTIVE Vitals reviewed: HRs remain elevated, 110-140 range, blood pressures and respirations stable, no fever Lab Head, my review: Rapid AFib Exam: alert oriented looks weak and tired skin warm dry color ok resps not labored lungs clear BSs heart irregular and rapid abd soft mildly distended nontender, bowel sounds present limbs warm, small amount bipedal edema iv site ok Lab data: Hemoglobin stable 7.5 Renal function and lytes okay MICROBIOLOGY: -blood cultures negative final -GI pathogen panel negative PROCEDURES DURING THIS ADMISSION: -CT scan of chest showing right lower lobe pneumonia with small bilateral for -CT scan of abdomen showing mild diffuse colitis, diverticulosis, and some hernias containing fat -EGD on 09/19 showing esophageal plaques potentially consistent with candidiasis , pathology pending -colonoscopy on 09/19 showing marked good colitis with features most consistent with Crohn's but possibility of ischemic colitis also considered, pathology pending -Echo with 50-55% ejection fraction, pulmonary hypertension at 44 Objective: Vital Signs Temp Pulse Resp BP Pulse Ox 36.7 C 107 H 16 131/84 H 99 09/21/18 08:00 09/21/18 08:00 09/21/18 08:00 09/21/18 08:00 09/21/18 08:00 Microbiology 09/15/18 21:12 Blood Culture - Final Blood 09/15/18 17:30 Blood Culture - Final Blood Laboratory Results 09/21/18 05:50 09/21/18 05:50 09/20/18 09/21/18 09/22/18 06:59 06:59 06:59 Intake Total 1350 2180 Output Total 370 955 150 Balance 980 1225 -150 PT 16.0 SEC (12.0-15.0) H 09/13/18 18:55 INR 1.34 (0.83-1.16) H 09/13/18 18:55 - Time Spent With Patient Time Spent with Patient: greater than 35 minutes Time Spent with Patient: Greater than 35 minutes spent on this patients care, greater than 50% of time spent counseling, educating, and coordinating care regarding the above mentioned plan. ICD10 Worksheet Patient Problems: Problems Problem Status Onset Atrial fibrillation Acute Dehydration Acute Fever Acute Myelodysplastic syndrome Acute
--- NOTE | 2018-09-21 10:48 | SOAPPROG ---
SOAP Progress Note Assessment/Plan: Assessment: 1. Community-acquired pneumonia. This is associated with sepsis. Currently on cefepime. This is being followed by the hospitalist service. 2. History of myelodysplastic syndrome. His counts have been stable. He has received a unit of packed red blood cells. 3. Chronic renal insufficiency. This appears to be stable at the present time. 4. Chronic diarrhea. GI consult pending. 5. Paroxysmal atrial fibrillation. He is in atrial fibrillation currently with suboptimal heart rate controls. His hemodynamics are a little soft at the present time. He is on systemic anticoagulation in the form of Eliquis. 6. Nonsustained VT. This is noted on telemetry. This has been asymptomatic. His ejection fraction is normal. 09/17/2018: Clinically he has shown significant improvement over the last 24 hr. His heart rates in atrial fibrillation are suboptimally controlled however asymptomatic at the present time. 09/18/2018: Heart rates are much improved currently. He is asymptomatic with respect to his atrial fibrillation. His chads Vasc score is 3. As result, historically, he has been treated with systemic anticoagulation currently on hold for the planned EGD and colonoscopy tomorrow. He has developed bilateral lower extremity edema with documented weight gain. 09/20/2018: He is stable with respect to his atrial fibrillation. Rate control could be a little bit improved however overall is not bad. He has no cardiac symptoms at the present time. 09/21/2018: He continues to show steady improvement. His heart rates in atrial fibrillation are marginally well controlled. Yesterday his diltiazem dose was increased to the present dose. Plan: 1. At the present time, he has no contraindications to safely being discharged from the hospital. 2. It should be noted that Dr. Lao has added metoprolol 25 mg twice daily. This will be taken in addition to his twice daily diltiazem and digoxin. 3. He has been restarted on Eliquis. 4. We will plan to restart torsemide at a dose of 20 mg daily and continue oral potassium supplementation. 5. He can follow-up with in the outpatient setting within the next 1- 2 weeks. 6. Once he has recovered from this current illness, we can consider cardioversion if he does not lapsed back into sinus rhythm spontaneously. 09/21/18 10:53 Subjective: He continues to show steady improvement. He notes no dyspnea or chest discomfort. Resting heart rates continue to be approximately 110 beats per minute. He has not had any pauses. He notes no chest pain. His diarrhea has completely resolved. He does complain of a cough with sputum production which has increased recently. Objective: Vital Signs Temp Pulse Resp BP Pulse Ox 36.7 C 107 H 16 131/84 H 99 09/21/18 08:00 09/21/18 08:00 09/21/18 08:00 09/21/18 08:00 09/21/18 08:00 Microbiology 09/15/18 21:12 Blood Culture - Final Blood 09/15/18 17:30 Blood Culture - Final Blood Laboratory Results 09/21/18 05:50 09/21/18 05:50 09/20/18 09/21/18 09/22/18 05:59 05:59 05:59 Intake Total 2681 2180 Output Total 370 955 150 Balance 2311 1225 -150 PT 16.0 SEC (12.0-15.0) H 09/13/18 18:55 INR 1.34 (0.83-1.16) H 09/13/18 18:55 Physical Exam - Physical Exam General Appearance: WD/WN, alert, no apparent distress EENT: PERRL/EOMI, normal ENT inspection, pharynx normal, TMs normal Neck: non-tender, full range of motion, supple, normal inspection Respiratory: chest non-tender, lungs clear, normal breath sounds Cardiac/Chest: edema (1 quarter-inch pitting edema confined to the ankle and feet), irregularly irregular, No JVD, No bradycardia Peripheral Pulses: 2+: carotid (R), carotid (L), femoral (R), femoral (L), dorsalis-pedis (R), dorsalis-pedis (L) Abdomen: normal bowel sounds, non-tender, soft Male Genitalia: deferred Rectal: deferred Back: Normal inspection Skin: normal color, warm/dry Lymphatic: no adenopathy Extremities: normal range of motion, non-tender, normal inspection, normal capillary refill Neuro/Psych: no motor/sensory deficits, alert, normal mood/affect, oriented x 3 ICD10 Worksheet Patient Problems: Problems Problem Status Onset Fever Acute Myelodysplastic syndrome Acute Atrial fibrillation Acute Dehydration Acute
[2018-09-21] MEDS: TORSEMIDE 20 MG TAB PO SCH (11:26)
[2018-09-21] MEDS: traZODone 100 MG TAB PO SCH (20:21)
[2018-09-21] MEDS: APIXABAN 5 MG TAB PO SCH (20:22)
[2018-09-21] MEDS: TERAZOSIN HCL 5 MG CAP PO SCH (20:22)
[2018-09-21] MEDS: METOPROLOL TARTRATE 50 MG TAB PO SCH (20:22)
[2018-09-21] MEDS: HYDROCODONE/APAP 5/325 TAB PO PRN (23:43)
[2018-09-21] MEDS: SIMETHICONE 80 MG TAB CHEW PO PRN (23:44)
[2018-09-22] MEDS: HYDROCODONE/APAP 5/325 TAB PO PRN ×2 (02:11→21:21)
[2018-09-22] MEDS: oxyCODONE IR 5 MG TAB PO PRN (03:44)
[2018-09-22] MEDS: LEVOTHYROXINE 112 MCG TAB PO SCH (05:52)
[2018-09-22] MEDS: TERAZOSIN HCL 5 MG CAP PO SCH (05:53)
[2018-09-22] MEDS: FAMOTIDINE 20 MG TAB PO SCH ×2 (08:22→21:21)
[2018-09-22] MEDS: POTASSIUM CL 20 MEQ TAB PO SCH (08:22)
[2018-09-22] MEDS: CYANO/VITAMIN B12 100 MCG TAB PO SCH (08:22)
[2018-09-22] MEDS: FOLIC ACID 1 MG TAB PO SCH (08:22)
[2018-09-22] MEDS: predniSONE 20 MG TAB PO SCH (08:22)
[2018-09-22] MEDS: MULTIVITAMINS 1 EACH TAB PO SCH (08:22)
[2018-09-22] MEDS: DILTIAZEM CD 120 MG CAP PO SCH ×2 (08:22→21:22)
[2018-09-22] MEDS: AZITHROMYCIN 250 MG TAB PO SCH (08:22)
[2018-09-22] MEDS: METOPROLOL TARTRATE 50 MG TAB PO SCH (08:22)
[2018-09-22] MEDS: APIXABAN 5 MG TAB PO SCH ×2 (08:22→21:24)
[2018-09-22] MEDS: guaiFENesin 600 MG TAB.ER PO SCH ×2 (08:22→21:24)
[2018-09-22] MEDS ORDERED: METOPROLOL TARTRATE 5 MG/5 ML INJ IVP ONE (09:10)
--- NOTE | 2018-09-22 09:12 | SOAPPROG ---
SOAP Progress Note Assessment/Plan: Assessment: 1. Community-acquired pneumonia. This is associated with sepsis. Currently on cefepime. This is being followed by the hospitalist service. 2. History of myelodysplastic syndrome. His counts have been stable. He has received a unit of packed red blood cells. 3. Chronic renal insufficiency. This appears to be stable at the present time. 4. Chronic diarrhea. GI consult pending. 5. Paroxysmal atrial fibrillation. He is in atrial fibrillation currently with suboptimal heart rate controls. His hemodynamics are a little soft at the present time. He is on systemic anticoagulation in the form of Eliquis. 6. Nonsustained VT. This is noted on telemetry. This has been asymptomatic. His ejection fraction is normal. 09/17/2018: Clinically he has shown significant improvement over the last 24 hr. His heart rates in atrial fibrillation are suboptimally controlled however asymptomatic at the present time. 09/18/2018: Heart rates are much improved currently. He is asymptomatic with respect to his atrial fibrillation. His chads Vasc score is 3. As result, historically, he has been treated with systemic anticoagulation currently on hold for the planned EGD and colonoscopy tomorrow. He has developed bilateral lower extremity edema with documented weight gain. 09/20/2018: He is stable with respect to his atrial fibrillation. Rate control could be a little bit improved however overall is not bad. He has no cardiac symptoms at the present time. 09/21/2018: He continues to show steady improvement. His heart rates in atrial fibrillation are marginally well controlled. Yesterday his diltiazem dose was increased to the present dose. 09/22/2018: Clinically he is doing extraordinarily well. His room air saturations are 99-100% and his exam has improved substantially. Interestingly , following the administration of metoprolol and beginning torsemide, his heart rates have actually increased. Resting heart rates in atrial fibrillation are now between 120 and 150 beats per minute. Fortunately he is asymptomatic. Plan: 1. We will plan to continue his current medications as prescribed. I anticipate that his heart rate will gradually improved. 2. I have ordered a single 5 mg IV dose of metoprolol. 3. Provided his heart rates improve I think he can be discharged from the hospital today. 4. He can follow-up with in the outpatient setting within the next 1- 2 weeks. 5. Once he has recovered from this current illness, we can consider cardioversion if he does not lapsed back into sinus rhythm spontaneously. 09/22/18 09:12 Objective: Vital Signs Temp Pulse Resp BP Pulse Ox 36.3 C 160 H 16 103/76 96 09/22/18 04:00 09/22/18 08:22 09/22/18 04:00 09/22/18 04:00 09/22/18 04:00 Microbiology 09/15/18 21:12 Blood Culture - Final Blood 09/15/18 17:30 Blood Culture - Final Blood Laboratory Results 09/21/18 05:50 09/21/18 05:50 09/21/18 09/22/18 09/23/18 05:59 05:59 05:59 Intake Total 2180 2350 Output Total 955 2225 Balance 1225 125 PT 16.0 SEC (12.0-15.0) H 09/13/18 18:55 INR 1.34 (0.83-1.16) H 09/13/18 18:55 Physical Exam - Physical Exam General Appearance: WD/WN, alert, no apparent distress EENT: PERRL/EOMI, normal ENT inspection, pharynx normal, TMs normal Neck: non-tender, full range of motion, supple, normal inspection Respiratory: chest non-tender, lungs clear, normal breath sounds Cardiac/Chest: normal peripheral pulses, edema (1 quarter-inch pitting edema confined to the lower leg around the ankle and foot), tachycardia, irregularly irregular, No gallop, No JVD Peripheral Pulses: 2+: carotid (R), carotid (L) Abdomen: normal bowel sounds, non-tender, soft Male Genitalia: deferred Rectal: deferred Back: Normal inspection Skin: normal color, warm/dry Extremities: non-tender, normal inspection Neuro/Psych: alert, normal mood/affect, oriented x 3 ICD10 Worksheet Patient Problems: Problems Problem Status Onset Atrial fibrillation Acute Dehydration Acute Fever Acute Myelodysplastic syndrome Acute
--- NOTE | 2018-09-22 10:29 | HOSPPROG ---
Hospitalist Progress Note Assessment/Plan: DIAGNOSES: * Rapid atrial fibrillation, paroxysmal - rate even faster today despite increase rate control meds (on dilt, dig, and metoprolol) -suspect his edema may be preventing absorption of po meds * Acute CHF with worsening leg edema and abd distention (suspect due to rapid AFib) * Acute sepsis - now resolved * Right lower lobe pneumonia in an immune compromised host, community-acquired; associated with the right > left pleural effusion * Dehydration, resolved * Nonsustained VT on personnel monitor, no recurrence today * Suspect Crohn's is the cause of his colitis based on endoscopy, biopsies pending to rule out ischemic or other cause; notably Humira was not controlling this disease in the outpatient setting * ? 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 at this time * continue eliquis * Humira discontinued, probably start Remicade for colitis after pathology known will be started * Ativan discontinued (used as sleep aid at home) due to higher risk of falls; will try higher dose of trazodone * PT/OT * Follow blood cell counts closely, consider transfusion for hemoglobin less than 7 as per Hematology recommendation Plan on discharge to home once heart rate control is stabilized Seen by me today on hospitalist rounds as well as multidisciplinary rounds reviewed w Dr Hawk. 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: Rapid AFib Exam: alert oriented looks weak and tired skin warm dry color ok resps not labored lungs clear BSs heart irregular and rapid abd soft notably more distended today nontender, bowel sounds present limbs warm, notably more bipedal edema today iv site ok MICROBIOLOGY: -blood cultures negative final -GI pathogen panel negative PROCEDURES DURING THIS ADMISSION: -CT scan of chest showing right lower lobe pneumonia with small bilateral for -CT scan of abdomen showing mild diffuse colitis, diverticulosis, and some hernias containing fat -EGD on 09/19 showing esophageal plaques potentially consistent with candidiasis , pathology pending -colonoscopy on 09/19 showing marked good colitis with features most consistent with Crohn's but possibility of ischemic colitis also considered, pathology pending -Echo with 50-55% ejection fraction, pulmonary hypertension at 44 Objective: Vital Signs Temp Pulse Resp BP Pulse Ox 36.9 C 122 H 18 102/69 98 09/22/18 09:35 09/22/18 09:35 09/22/18 09:35 09/22/18 09:35 09/22/18 09:35 Microbiology 09/15/18 21:12 Blood Culture - Final Blood 09/15/18 17:30 Blood Culture - Final Blood Laboratory Results 09/21/18 05:50 09/21/18 05:50 09/21/18 09/22/18 09/23/18 06:59 06:59 06:59 Intake Total 2180 2350 Output Total 955 2225 Balance 1225 125 PT 16.0 SEC (12.0-15.0) H 09/13/18 18:55 INR 1.34 (0.83-1.16) H 09/13/18 18:55 - Time Spent With Patient Time Spent with Patient: greater than 35 minutes Time Spent with Patient: Greater than 35 minutes spent on this patients care, greater than 50% of time spent counseling, educating, and coordinating care regarding the above mentioned plan. ICD10 Worksheet Patient Problems: Problems Problem Status Onset Atrial fibrillation Acute Dehydration Acute Fever Acute Myelodysplastic syndrome Acute
[2018-09-22] MEDS: FUROSEMIDE 40 MG/4 ML VIAL IVP SCH ×2 (10:37→15:17)
[2018-09-22] MEDS: DIGOXIN 125 MCG TAB PO SCH (10:40)
[2018-09-22] MEDS: TORSEMIDE 20 MG TAB PO SCH ×2 (10:40→10:48)
[2018-09-22] MEDS: METOPROLOL TARTRATE 5 MG/5 ML INJ IVP SCH ×2 (16:17→23:33)
[2018-09-22] MEDS: traZODone 100 MG TAB PO SCH (21:22)
[2018-09-23] MEDS: HYDROCODONE/APAP 5/325 TAB PO PRN (00:58)
[2018-09-23] MEDS: ACETAMINOPHEN 325 MG TAB PO PRN ×2 (03:39→09:37)
[2018-09-23] MEDS: TERAZOSIN HCL 5 MG CAP PO SCH (05:28)
[2018-09-23] MEDS: LEVOTHYROXINE 112 MCG TAB PO SCH (05:28)
[2018-09-23] MEDS: METOPROLOL TARTRATE 5 MG/5 ML INJ IVP SCH ×4 (05:29→21:33)
[2018-09-23] MEDS: guaiFENesin 600 MG TAB.ER PO SCH ×2 (09:37→21:33)
[2018-09-23] MEDS: APIXABAN 5 MG TAB PO SCH ×2 (09:37→21:33)
[2018-09-23] MEDS: predniSONE 20 MG TAB PO SCH (09:38)
[2018-09-23] MEDS: DILTIAZEM CD 120 MG CAP PO SCH (09:38)
[2018-09-23] MEDS: CYANO/VITAMIN B12 100 MCG TAB PO SCH (09:39)
[2018-09-23] MEDS: POTASSIUM CL 20 MEQ TAB PO SCH (09:40)
[2018-09-23] MEDS: MULTIVITAMINS 1 EACH TAB PO SCH (09:40)
[2018-09-23] MEDS: FAMOTIDINE 20 MG TAB PO SCH ×2 (09:40→21:33)
[2018-09-23] MEDS: FOLIC ACID 1 MG TAB PO SCH (09:40)
[2018-09-23] MEDS: FUROSEMIDE 40 MG/4 ML VIAL IVP SCH ×2 (09:43→15:06)
--- NOTE | 2018-09-23 10:27 | PDCARPN ---
Cardiology Progress Note Chief Complaint: DCHF, PAF Assessment/Plan: Assessment: 78M followed by [facility] Dr. Robertson. Pt new to me. 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 Sees Dr. Robertson for DCHF. Also has ANNA MARIE, CKD. Found to be in AF and also has CAP. #. PAF: rate still does not appear controlled despite IV and PO Metoprolol currently on Dilt CD 120 BID and Dig spoke with Dr. Lao - plan is to start IV dilt and titrate dose to control HR back on Eliquis for [id number] of at least 3 #. DCHF: has been placed on IV Lasix check BNP with AM labs #. CKD: Cr 0.7 #. NSVT: seen earlier in hospitalization 09/14/18 with 17 beat run but no recurrent bouts on telemetry consider outpatient MPI as he has not had repeat episodes would favor BB but will defer this for now defer ASA as he is currently on Eliquis #. ANNA MARIE #. CAP: per hospital med Plan: - trial of Dilt gtt for rate control 09/23/18 09:39 Subjective: No cp. Notes VANEGAS. No pnd/orthopnea. Peripheral edema persists in ankles. No f/c or cough. Not feeling presyncopal, dizzy, or palps. Reviewed/Discussed With: hospitalist (Dr. Lao) Time Spent with Patient: greater than 35 minutes Time Spent with Patient: Greater than 35 minutes spent on this patients care, greater than 50% of time spent counseling, educating, and coordinating care regarding the above mentioned plan. Objective: Vital Signs (8 Hrs) Temp Pulse Resp BP Pulse Ox 09/23/18 07:45 98.2 F 120 H 18 109/77 99 09/23/18 05:29 119 H 09/23/18 03:43 97.2 F 125 H 12 120/85 H 98 Intake/Output (24 Hrs) 09/22/18 09/23/18 09/24/18 05:59 05:59 05:59 Intake Total 2350 1100 Output Total 2225 5025 Balance 125 -3925 Intake: Oral (ml) 2350 1100 Output: Urine (ml) 2225 5025 Toilet 325 Urinal 2225 4700 Other: Weight 101.6 kg 97.1 kg Number of Voids Bedside Commode 1 Incontinence 1 Toilet 1 Urinal 1 Number of Stools Bedside Commode 1 Incontinence 1 1 Toilet 1 Result Diagrams: 09/23/18 05:25 09/22/18 10:39 EKG: AF with RVR Telemetry: AF RVR Echocardiogram: EF 50-55, trivial MR, mild TR, RVSP 40 - Physical Exam Constitutional: no apparent distress Eyes: anicteric sclera Ears, Nose, Mouth, Throat: moist mucous membranes Cardiovascular: irregularly irregular Respiratory: clear to auscultate bilat, no crackles Gastrointestinal: normoactive bowel sounds, no tenderness Genitourinary: No larose in urethra Skin: other (ankle edema bilaterally) Musculoskeletal: No joint effusion Psychiatric: cooperative, interactive ICD10 Worksheet Patient Problems: Problems Problem Status Onset Atrial fibrillation Acute Dehydration Acute Fever Acute Myelodysplastic syndrome Acute
[2018-09-23] MEDS: DIGOXIN 125 MCG TAB PO SCH (10:42)
--- NOTE | 2018-09-23 12:10 | ASMTCMCOM ---
CM Note CM Note Notes: Pts case discussed in tx rounds. Pt is not medically stable to d/c at this time. CM to follow. Plan: BC; PT, OT, RN Date Signed: 09/23/2018 12:08 PM Electronically Signed By:YOSVANY Mcbride
[2018-09-23] MEDS: EPOETIN ALFA 10,000 UNIT/ML VIAL SC SCH (12:48)
--- NOTE | 2018-09-23 15:08 | HOSPPROG ---
Hospitalist Progress Note Assessment/Plan: This patient who has chronic AFib, diastolic dysfunction, and pulmonary hypertension along with myelodysplastic syndrome, presented to the hospital with diarrhea and dehydration and is found to have a colitis. It is suspected Crohn's with pathology pending. 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 He has had colonoscopy here with biopsies and is on prednisone for his bowel disease, with plans to follow up in outpatient GI clinic to begin probably Remicade or other therapy depending on his pathology. Plan would be discharged home on current prednisone dose. While here however he started having rapid atrial fibrillation and despite use of digoxin diltiazem and metoprolol simultaneously his AFib is getting faster and he has developed significant heart failure with significant edema particularly GI bloating and bilateral leg edema. Notably the metoprolol is new during this admission and his diltiazem dose has been increased from 120 to 240 mg per day. On 09/21 we began aggressive IV diuresis and switched his metoprolol to IV with the thought that he may not be absorbing his oral rate control medicines well due to CHF related bowel edema. However despite getting Q 6 hr metoprolol IV and 4 L of diuresis overnight he remains with very rapid AFib. I reviewed with Dr. Dennis Martinez of cardiology in the plan at this time is to continue diuresis as he still has notable edema, and to change dose diltiazem to IV as well and titrate that up to effective dose. He has not tolerated amiodarone in the past. If we have trouble getting his heart rate controlled other options could include an ablation type therapy but it would be far peripheral to do this with medicines of possible. Is not having any angina. In addition to all the above the patient appeared to possibly have mild pneumonia at the time of admission and he was treated successfully for that. His initial diagnoses listed acute sepsis, but whether he truly had acute sepsis or whether his tachycardia and hypotension more instead due to dehydration from his diarrhea as well as AFib, is uncertain. Additionally esophageal plaques were noted on EGD and biopsied, pathology pending, question of possible candidiasis DIAGNOSES: * Rapid atrial fibrillation, paroxysmal - rate even faster today despite aggressive diuresis and use of IV metoprolol (on dilt, dig, and metoprolol) -suspect his edema may be preventing absorption of po meds * Acute diastolic CHF with worsening leg edema and abd distention (suspect due to rapid AFib) * Suspect Crohn's is the cause of his colitis based on endoscopy, biopsies pending to rule out ischemic or other cause; notably Humira was not controlling this disease in the outpatient setting * Acute sepsis? Verses tachycardia and low blood pressure from diarrhea and AFib - now resolved * Right lower lobe pneumonia in an immune compromised host, community-acquired; status post treatment seems resolved * Dehydration, resolved * Nonsustained VT on rn cardiac rehab, single episode earlier during this admission * ? 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 Dig; plan to titrate diltiazem up to achieve rate control and hopefully be able to switch all meds back to p.o. * Continue current dose of prednisone and discharged on that * Humira discontinued, probably start Remicade for colitis after pathology known will be started * continue eliquis for AFib stroke prevention * Ativan discontinued (used as sleep aid at home) due to higher risk of falls; will try higher dose of trazodone * PT/OT * Follow blood cell counts closely, consider transfusion for hemoglobin less than 7 as per Hematology recommendation Plan on discharge to home once heart rate control is stabilized and CHF stabilized Seen by me today on hospitalist rounds as well as multidisciplinary rounds reviewed w Dr Dennis Martinez SUBJECTIVE: Was unable to walk as far today, felt more fatigued Eating better and abdomen feels less distended No new symptoms OBJECTIVE Vitals reviewed: AFib heart rates remained quite elevated despite diuresis and IV meds, blood pressure and respirations all normal no fever 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, 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: Rapid AFib quite rapid I&O 3925 net out last 24 hr Exam: alert oriented looks weak and tired skin warm dry color ok resps not labored lungs diminished but clear BSs heart irregular and rapid abd soft a bit less distended than yesterday but not back to his baseline limbs warm, edema did decrease slightly from yesterday but still quite a bit of pitting edema both legs iv site ok MICROBIOLOGY: -blood cultures negative final -GI pathogen panel negative PATHOLOGY: Colon and esophageal biopsies all pending at this time PROCEDURES DURING THIS ADMISSION: -CT scan of chest showing right lower lobe pneumonia with small bilateral for -CT scan of abdomen showing mild diffuse colitis, diverticulosis, and some hernias containing fat -EGD on 09/19 showing esophageal plaques potentially consistent with candidiasis , pathology pending -colonoscopy on 09/19 showing marked good colitis with features most consistent with Crohn's but possibility of ischemic colitis also considered, pathology pending -Echo with 50-55% ejection fraction, pulmonary hypertension at 44 Objective: Vital Signs Temp Pulse Resp BP Pulse Ox 36.8 C 102 H 18 95/57 L 95 09/23/18 11:50 09/23/18 11:50 09/23/18 11:50 09/23/18 11:50 09/23/18 11:50 Laboratory Results 09/23/18 05:25 09/22/18 10:39 09/22/18 09/23/18 09/24/18 06:59 06:59 06:59 Intake Total 2350 1100 Output Total 2225 5025 400 Balance 125 -3925 -400 PT 16.0 SEC (12.0-15.0) H 09/13/18 18:55 INR 1.34 (0.83-1.16) H 09/13/18 18:55 - Time Spent With Patient Time Spent with Patient: greater than 35 minutes Time Spent with Patient: Greater than 35 minutes spent on this patients care, greater than 50% of time spent counseling, educating, and coordinating care regarding the above mentioned plan. ICD10 Worksheet Patient Problems: Problems Problem Status Onset Atrial fibrillation Acute Dehydration Acute Fever Acute Myelodysplastic syndrome Acute
[2018-09-23] MEDS: DILTIAZEM HCL/D5W 125 ML IV SCH ×2 (15:19→23:40)
[2018-09-23] MEDS: traZODone 100 MG TAB PO SCH (21:33)
[2018-09-24] MEDS: METOPROLOL TARTRATE 5 MG/5 ML INJ IVP SCH ×2 (05:40→13:35)
[2018-09-24] MEDS: TERAZOSIN HCL 5 MG CAP PO SCH (05:45)
[2018-09-24] MEDS: LEVOTHYROXINE 112 MCG TAB PO SCH (05:45)
[2018-09-24 05:56] LABS: PLATELET COUNT 221 10^3/uL (150-400)
[2018-09-24] MEDS: DILTIAZEM HCL/D5W 125 ML IV SCH ×2 (08:23→16:33)
[2018-09-24] MEDS: FUROSEMIDE 40 MG/4 ML VIAL IVP SCH ×2 (08:27→15:28)
[2018-09-24] MEDS: POTASSIUM CL 20 MEQ TAB PO SCH (08:27)
[2018-09-24] MEDS: FOLIC ACID 1 MG TAB PO SCH (08:27)
[2018-09-24] MEDS: guaiFENesin 600 MG TAB.ER PO SCH ×2 (08:27→21:03)
[2018-09-24] MEDS: CYANO/VITAMIN B12 100 MCG TAB PO SCH (08:27)
[2018-09-24] MEDS: predniSONE 20 MG TAB PO SCH (08:27)
[2018-09-24] MEDS: FAMOTIDINE 20 MG TAB PO SCH ×2 (08:27→21:03)
[2018-09-24] MEDS: APIXABAN 5 MG TAB PO SCH ×2 (08:28→21:03)
[2018-09-24] MEDS: MULTIVITAMINS 1 EACH TAB PO SCH (08:28)
[2018-09-24] MEDS: ACETAMINOPHEN 325 MG TAB PO PRN ×3 (08:45→21:08)
[2018-09-24] MEDS: DIGOXIN 125 MCG TAB PO SCH (10:32)
--- NOTE | 2018-09-24 13:07 | PDCARPN ---
Cardiology Progress Note Chief Complaint: AF RVR Assessment/Plan: Assessment: 78M followed by [facility] Dr. Robertson. 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 Sees Dr. Robertson for DCHF. Also has ANNA MARIE, CKD. Found to be in AF and also has CAP. Echo from this admission shows EF 50-55%, mild MR/TR, RVSP 44. #. PAF: rate still does not appear controlled despite IV and PO Metoprolol has been on Dilt GTT consulted with EP services/ will proceed to DONALD-guided DCCV in AM back on Eliquis for [id number] of at least 3 #. DCHF: has been placed on IV Lasix NT-proBNP 1510 #. CKD: Cr 0.7 #. NSVT: seen earlier in hospitalization 09/14/18 with 17 beat run but no recurrent bouts on telemetry consider outpatient MPI as he has not had repeat episodes would favor BB but will defer this for now defer ASA as he is currently on Eliquis #. ANNA MARIE #. CAP: per hospital med Plan: DONALD/CV for tomorrow 09/24/18 13:04 09/24/18 13:04 Subjective: Feels tired today. No cp, dyspnea, palps. Edema improved. Reviewed/Discussed With: hospitalist (Dr. Gagnon) Objective: Vital Signs (8 Hrs) Temp Pulse Resp BP Pulse Ox 09/24/18 10:59 98.0 F 90 18 100/52 L 97 09/24/18 10:40 88/53 L 09/24/18 10:35 93/48 L 09/24/18 10:32 123 H 09/24/18 08:50 166 H 95 09/24/18 08:23 121 H 09/24/18 06:52 98.4 F 115 H 18 110/74 97 09/24/18 05:40 112 H 114/73 Intake/Output (24 Hrs) 09/23/18 09/24/18 09/25/18 05:59 05:59 05:59 Intake Total 1100 530 Output Total 6404 7052 437 Balance -0991 -6949 -509 Intake: Oral (ml) 1100 250 IV Infused (ml) 280 Diltiazem HCl/D5w 125 ml 280 @ Per Protocol IV CONT SHY Rx#:[id number] Output: Urine (ml) 5025 2175 475 Toilet 325 Urinal 4700 2175 475 Other: Weight 97.1 kg 94.71 kg Number of Voids Toilet 1 Urinal 1 Number of Stools Incontinence 1 1 Toilet 1 Result Diagrams: 09/24/18 05:35 09/24/18 05:35 Telemetry: AF RVR/ rate more controlled at time of my interview - Physical Exam Constitutional: no apparent distress Eyes: PERRL, anicteric sclera Cardiovascular: irregularly irregular, No systolic murmur Respiratory: clear to auscultate bilat, no crackles Gastrointestinal: normoactive bowel sounds Skin: warm, other (wearing Kj hose) Neurologic: AAOx3 Psychiatric: cooperative, interactive ICD10 Worksheet Patient Problems: Problems Problem Status Onset Atrial fibrillation Acute Dehydration Acute Fever Acute Myelodysplastic syndrome Acute
--- NOTE | 2018-09-24 15:28 | HOSPPROG ---
Hospitalist Progress Note Assessment/Plan: DIAGNOSES: * Rapid atrial fibrillation, paroxysmal - rate uncontrolled despite scheduled IV metoprolol, dilt gtt, dig * Acute diastolic CHF with worsening leg edema and abd distention (suspect due to rapid AFib) * Suspect Crohn's is the cause of his colitis based on endoscopy, biopsies pending to rule out ischemic or other cause; notably Humira was not controlling this disease in the outpatient setting * Acute sepsis? Verses tachycardia and low blood pressure from diarrhea and AFib - now resolved * Right lower lobe pneumonia in an immune compromised host, community-acquired; status post treatment seems resolved * Dehydration, resolved * Nonsustained VT on desk monitor, single episode earlier during this admission * ? 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 * Myelodysplastic syndrome with abnormal cell counts * Anemia, fairly severe hemoglobin 7-8; multifactorial largely due to MDS but worse due to vasculitis and Crohn's * CKD, stable at present * Obstructive sleep apnea PLANS: * Continue aggressive diuresis at this time with IV Lasix (40 mg IV BID), net negative 1.6 L over past 24 hours * Plan for DONALD with DCCV tomorrow AM per cardiology * Continue current dose of prednisone and discharged on that * Humira discontinued, probably start Remicade for colitis after pathology known will be started * continue eliquis for AFib stroke prevention * Ativan discontinued (used as sleep aid at home) due to higher risk of falls; will try higher dose of trazodone * PT/OT * Follow blood cell counts closely, consider transfusion for hemoglobin less than 7 as per Hematology recommendation Subjective: Pt reports some fatigue this morning Objective: Vital Signs Temp Pulse Resp BP Pulse Ox 36.7 C 90 18 100/52 L 97 09/24/18 10:59 09/24/18 10:59 09/24/18 10:59 09/24/18 10:59 09/24/18 10:59 Laboratory Results 09/24/18 05:35 09/24/18 05:35 09/23/18 09/24/18 09/25/18 05:59 05:59 05:59 Intake Total 1100 530 Output Total 3589 2397 978 Balance -1271 -2892 -475 PT 16.0 SEC (12.0-15.0) H 09/13/18 18:55 INR 1.34 (0.83-1.16) H 09/13/18 18:55 - Physical Exam Constitutional: chronically ill appearing Eyes: PERRL Ears, Nose, Mouth, Throat: moist mucous membranes Cardiovascular: irregularly irregular, edema Respiratory: no respiratory distress Gastrointestinal: soft, non-tender abdomen Skin: warm Musculoskeletal: generalized weakness Neurologic: AAOx3 Psychiatric: interacting appropriately ICD10 Worksheet Patient Problems: Problems Problem Status Onset Atrial fibrillation Acute Dehydration Acute Fever Acute Myelodysplastic syndrome Acute
[2018-09-24] MEDS: traZODone 100 MG TAB PO SCH (21:03)
[2018-09-25] MEDS: DILTIAZEM HCL/D5W 125 ML IV SCH ×3 (01:39→18:29)
[2018-09-25] MEDS: TERAZOSIN HCL 5 MG CAP PO SCH (03:09)
[2018-09-25] MEDS: ACETAMINOPHEN 325 MG TAB PO PRN ×2 (03:09→18:35)
[2018-09-25 03:45] LABS: INR 1.35 (0.83-1.16); PLATELET COUNT 168 10^3/uL (150-400); PROTIME(PATIENT) 16.1 SEC (12.0-15.0)
[2018-09-25] MEDS ORDERED: ATROPINE SULFATE 1 MG/10 ML SYR IVP ONE (06:00)
[2018-09-25] MEDS ORDERED: NS 1,000 ML IV ONE (06:00)
[2018-09-25] MEDS: LEVOTHYROXINE 112 MCG TAB PO SCH (07:08)
[2018-09-25] MEDS: DIGOXIN 125 MCG TAB PO SCH (08:25)
[2018-09-25] MEDS: guaiFENesin 600 MG TAB.ER PO SCH ×2 (08:26→21:38)
[2018-09-25] MEDS: MULTIVITAMINS 1 EACH TAB PO SCH (08:26)
[2018-09-25] MEDS: CYANO/VITAMIN B12 100 MCG TAB PO SCH (08:26)
[2018-09-25] MEDS: POTASSIUM CL 20 MEQ TAB PO SCH (08:26)
[2018-09-25] MEDS: FAMOTIDINE 20 MG TAB PO SCH ×2 (08:26→21:38)
[2018-09-25] MEDS: predniSONE 20 MG TAB PO SCH (08:26)
[2018-09-25] MEDS: APIXABAN 5 MG TAB PO SCH ×2 (08:26→21:37)
[2018-09-25] MEDS: FOLIC ACID 1 MG TAB PO SCH (08:26)
[2018-09-25] MEDS: FUROSEMIDE 40 MG/4 ML VIAL IVP SCH (08:27)
--- NOTE | 2018-09-25 12:31 | HOSPPROG ---
Hospitalist Progress Note Assessment/Plan: DIAGNOSES: * Rapid atrial fibrillation, paroxysmal - rate uncontrolled despite scheduled IV metoprolol, dilt gtt, dig * Acute diastolic CHF with worsening leg edema and abd distention (suspect due to rapid AFib) * Suspect Crohn's is the cause of his colitis based on endoscopy, biopsies pending to rule out ischemic or other cause; notably Humira was not controlling this disease in the outpatient setting * Acute sepsis? Verses tachycardia and low blood pressure from diarrhea and AFib - now resolved * Right lower lobe pneumonia in an immune compromised host, community-acquired; status post treatment seems resolved * Dehydration, resolved * Nonsustained VT on equipment monitor phototypesetting, single episode earlier during this admission * ? 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 * Myelodysplastic syndrome with abnormal cell counts * Anemia, fairly severe hemoglobin 7-8; multifactorial largely due to MDS but worse due to vasculitis and Crohn's * CKD, stable at present * Obstructive sleep apnea PLANS: * Transitioning from IV to PO Diuretics, was on 40 mg IV BID Lasix, switching to home Torsemide 20 mg qd, net negative 850 mL over past 24 hours * Plan for DONALD with DCCV this afternoon per cardiology * Colon biopsy returned with active colitis and crypt abscesses indicating likely Crohn's disease, plan per GI is to continue current dose of prednisone at time of discharge * Humira discontinued, probably start Remicade for colitis as an outpatient * continue eliquis for AFib stroke prevention * Ativan discontinued (used as sleep aid at home) due to higher risk of falls; will try higher dose of trazodone * PT/OT * Follow blood cell counts closely, consider transfusion for hemoglobin less than 7 as per Hematology recommendation Subjective: Pt reports some fatigue this AM Objective: Vital Signs Temp Pulse Resp BP Pulse Ox 36.8 C 104 H 18 98/59 L 98 09/25/18 11:38 09/25/18 11:38 09/25/18 11:38 09/25/18 11:38 09/25/18 11:38 Laboratory Results 09/25/18 03:25 09/25/18 03:25 09/24/18 09/25/18 09/26/18 05:59 05:59 05:59 Intake Total 530 1180 Output Total 9922024 Balance -1645 -845 PT 16.1 SEC (12.0-15.0) H 09/25/18 03:25 INR 1.35 (0.83-1.16) H 09/25/18 03:25 - Physical Exam Constitutional: chronically ill appearing Eyes: PERRL Ears, Nose, Mouth, Throat: moist mucous membranes Cardiovascular: irregularly irregular, tachycardia, No edema Respiratory: no respiratory distress, clear to auscultation Gastrointestinal: soft, non-tender abdomen Skin: warm Musculoskeletal: generalized weakness Neurologic: AAOx3 Psychiatric: interacting appropriately ICD10 Worksheet Patient Problems: Problems Problem Status Onset Atrial fibrillation Acute Dehydration Acute Fever Acute Myelodysplastic syndrome Acute
--- NOTE | 2018-09-25 14:52 | PDANEPAE ---
ANE History of Present Illness a-fib with rvr ANE Past Medical History - Cardiovascular History Hx Hypertension: No Hx Arrhythmias: Yes Hx Chest Pain: No Hx Coronary Artery / Peripheral Vascular Disease: No Hx CHF / Valvular Disease: Yes Hx Palpitations: No Cardiovascular History Comment: h/o afib, vasculitis, CHF - Pulmonary History Hx COPD: No Hx Asthma/Reactive Airway Disease: No Hx Recent Upper Respiratory Infection: No Hx Oxygen in Use at Home: No Hx Sleep Apnea: No Sleep Apnea Screening Result - Last Documented: Positive Pulmonary History Comment: recent pneumonia-treated - Endocrine History Hx Diabetes: No Hypothyroid: No Hyperthyroid: No Obesity: no - Renal History Hx Renal Disorders: No - Liver History Hx Hepatic Disorders: No - Cancer History Hx Cancer: Yes Cancer History Comment: myelodysplastic syndrome - Congenital Disorder History Hx 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 - GI History GERD: mild Hx Gastrointestinal Disorders: Yes Gastrointestinal History Comment: diarrhea weight loss anemia - Chronic Pain History Chronic Pain: No ANE Review of Systems Review of Systems: ANE Patient History - Allergies Allergies/Adverse Reactions: lisinopril [From Zestril] Allergy (Severe, Verified 03/31/17 09:06) Swelling/neck,face,throat codeine Allergy (Verified 03/31/17 09:06) neck swelling minocycline Allergy (Verified 09/13/18 21:36) Other-Enter Comments - Home Medications Home medications: home medication list seen and reviewed Home Medications: Acetaminophen [Tylenol ES 500 mg (*)] 1,000 mg PO Q6 PRN 03/31/17 [Last Taken Unknown] Cyanocobalamin [Vitamin B12 (*)] 100 mcg PO DAILY 03/31/17 [Last Taken 09/13/18] LORazepam [Ativan (*)] 1 mg PO TID PRN 03/31/17 [Last Taken 09/12/18] Metoprolol Tartrate [Lopressor 25 mg (*)] 12.5 mg PO BID 03/31/17 [Last Taken ] Multivitamins [Multivitamin (*)] 1 each PO DAILY 03/31/17 [Last Taken Unknown] Ranitidine HCl [Zantac] 150 mg PO BID 03/31/17 [Last Taken 09/13/18 AM] Terazosin HCl 10 mg PO DAILY@05 03/31/17 [Last Taken Unknown] Tetracycline HCl 250 mg PO TID PRN #0 03/31/17 [Last Taken Unknown] Apixaban [Eliquis] 2.5 mg PO BID 09/13/18 [Last Taken 09/13/18 AM] Diphenoxylate HCl/Atrop Sulf [Lomotil Tab (*)] 2 tab PO QID PRN 09/13/18 [Last Taken Unknown] Folic Acid [Folic Acid 1 MG (*)] 1 mg PO DAILY 09/13/18 [Last Taken Unknown] Herbals/Supplements -Info Only 1 ea PO DAILY 09/13/18 [Last Taken Unknown] Levothyroxine [Synthroid 112 mcg (*)] 112 mcg PO DAILY06 09/13/18 [Last Taken ] Multivitamins [Multivitamin (*)] 1 each PO DAILY 09/13/18 [Last Taken Unknown] predniSONE 5 mg PO DAILY 09/13/18 [Last Taken Unknown] - NPO status NPO Since - Liquids (Date): 09/25/18 NPO Since - Liquids (Time): 07:00 NPO Since - Solids (Date): 09/25/18 NPO Since - Solids (Time): 07:00 - Anes Hx Anes Hx: no prior problems - Smoking Hx Smoking Status: Former smoker - Alcohol Use Alcohol Use: Occasionally ANE Labs/Vital Signs - Labs Result Diagrams: 09/25/18 03:25 09/25/18 03:25 - Vital Signs Vital Signs: reviewed preoperatively; see RN documention for details Blood Pressure: 102/61 Heart Rate: 93 Respiratory Rate: 18 O2 Sat (%): 98 Height: 185.42 cm Weight: 94.3 kg ANE Physical Exam - Airway Neck exam: FROM Mallampati Score: Class 2 Mouth exam: normal dental/mouth exam - Pulmonary Pulmonary: no respiratory distress - Cardiovascular Cardiovascular: irregularly irregular - ASA Status ASA Status: III ANE Anesthesia Plan Anesthesia Plan: GA with mask
[2018-09-25] MEDS ORDERED: PROPOFOL 200 MG/20 ML VIAL ONE (14:55)
[2018-09-25] MEDS ORDERED: ATROPINE SULFATE 1 MG/10 ML SYR ONE (14:56)
[2018-09-25] MEDS ORDERED: NALOXONE HCL 0.4 MG/ML INJ IVP PRN (15:43)
--- NOTE | 2018-09-25 15:43 | POSTANESTH ---
Post Anesthetic Evaluation Cardiovascular Status: Normal, Stable Respiratory Status: Normal, Stable Level of Consciousness/Mental Status: Can Participate in Eval Pain Control: Adequate, Prn Tx Ordered Nausea/Vomiting Control: Adequate, Prn Tx Ordered Complications Possibly Related to Anesthesia: None Noted
--- NOTE | 2018-09-25 16:48 | ECHO ---
[email or web address] [address] Main: [phone] Echocardiography Examination Transesophageal Name: MELLISSA BURNHAM MR#: [id number] Study Date: 09/25/2018 Study Time: 03:22 PM Date of : 1940 Age: 78 year(s) Height: ( ) Weight: ( ) BSA: Gender: Male Examination: DONALD Contrast: Image Quality: Adequate Rhythm: Heart Rate: BP: / Indication: A fib Procedure Staff Referring Physician: Doctor Of Chiropractic: Beatris Mueller [facility] Reading Physician: Dennis Martinez MD Requesting Provider: Ordering Physician: Aliyah Cordova Indication: A fib Acute complication: None Conclusions 1. This is a transesophageal echocardiogram performed prior to cardioversion. 2. No thrombus in the left atrium or left atrial appendage. 3. The mitral valve is normal in structure. There was mild mitral regurgitation. 4. The aortic valve is trileaflet. There is no aortic stenosis or insufficiency. Findings Left Ventricle: Left ventricle is normal in size. Normal global systolic left ventricular function. Left Atrium Appendage: Normal PW-Doppler flow pattern. Good color flow doppler in the left atrial appendage. No thrombus is identified. Mitral Valve: Mitral valve appears structurally normal. Mild mitral regurgitation. Aortic Valve: Aortic leaflets are structurally normal. No significant aortic valve regurgitation. Tricuspid Valve: Tricuspid valve leaflets are normal in appearance. Pulmonic Valve: Pulmonic leaflets are normal in appearance. Patient: MELLISSA BURNHAM Study Date: 09/25/2018 Page 1 of 2 03:22 PM Exam Details Procedure Ordered: DONALD Procedure Status: Routine study Image Quality: Adequate Consent: Risks, alternatives of procedure explained to patient, informed consent obtained Probe Insertion: Attending interrelated special education teacher Facility Location: Bedside (No Signature Object) Patient: MELLISSA BURNHAM Study Date: 09/25/2018 Page 2 of 2 03:22 PM [id number]
--- NOTE | 2018-09-25 18:32 | CPEKG ---
Test Reason : OPEN Blood Pressure : / mmHG Vent. Rate : 104 BPM Atrial Rate : 131 BPM P-R Int : 152 ms QRS Dur : 089 ms QT Int : 295 ms P-R-T Axes : 000 080 259 degrees QTc Int : 388 ms Atrial fibrillation Confirmed by Rosemarie Tang ([id number]) on 09/25/2018 6:31:59 PM Referred By: Isis Fine Confirmed By:Rosemarie Tang
--- NOTE | 2018-09-25 18:37 | CPEKG ---
Test Reason : OPEN Blood Pressure : / mmHG Vent. Rate : 095 BPM Atrial Rate : 095 BPM P-R Int : 148 ms QRS Dur : 083 ms QT Int : 339 ms P-R-T Axes : -22 089 041 degrees QTc Int : 426 ms Sinus rhythm Atrial premature complex Borderline right axis deviation Low voltage, extremity leads Compared with 09/25/2018 900 NSR now present Confirmed by Rosemarie Tang ([id number]) on 09/25/2018 6:37:17 PM Referred By: Isis Fine Confirmed By:Rosemarie Tang
[2018-09-25] MEDS: traZODone 100 MG TAB PO SCH (21:38)
[2018-09-26] MEDS: ACETAMINOPHEN 325 MG TAB PO PRN ×3 (01:24→19:12)
--- NOTE | 2018-09-26 02:32 | CPIP ---
[f rep st] INVASIVE CARDIAC PROCEDURE DATE OF PROCEDURE: 09/25/2018 PROCEDURE: Direct current cardioversion. INDICATION: Atrial fibrillation. CONSENT: Signed and in front of chart. ANESTHESIA: Per anesthesia. SPECIFICS: 1. DONALD was performed with no evidence of thrombus in the left atrium or left atrial appendage. 2. Pads placed in anterior posterior position. 3. 150 joules synchronized delivered x1 with return to normal sinus rhythm. COMPLICATIONS: None. CONCLUSIONS: Status post successful DC cardioversion to normal sinus rhythm. /[id number]/MODL
[2018-09-26] MEDS: TERAZOSIN HCL 5 MG CAP PO SCH (03:35)
[2018-09-26] MEDS: LEVOTHYROXINE 112 MCG TAB PO SCH (03:36)
[2018-09-26] MEDS: DILTIAZEM HCL/D5W 125 ML IV SCH (03:37)
--- NOTE | 2018-09-26 09:16 | PDCARPN ---
Cardiology Progress Note Chief Complaint: AF/DCHF Assessment/Plan: Assessment: 78M followed by [facility] Dr. Robertson. 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 Sees Dr. Robertson for DCHF. Also has ANNA MARIE, CKD. Found to be in AF and also has CAP. Echo from this admission shows EF 50-55%, mild MR/TR, RVSP 44. #. PAF: s/p DCCV and appears to be maintaining SR resume Metoprolol #. DCHF: back on home Torsemide NT-proBNP 1510 #. CKD: Cr 0.7 #. NSVT: seen earlier in hospitalization 09/14/18 with 17 beat run but no recurrent bouts on telemetry consider outpatient MPI as he has not had repeat episodes would favor BB but will defer this for now defer ASA as he is currently on Eliquis #. ANNA MARIE: continue previous treatment #. CAP: per hospital med Plan: - Stable for D/C - Has follow up next week with Dr. Robertson 09/26/18 08:59 Subjective: Feeling well. Edema down. Reviewed/Discussed With: hospitalist (Dr. Gagnon) Objective: Vital Signs (8 Hrs) Temp Pulse Resp BP Pulse Ox 09/26/18 08:35 98.2 F 95 20 125/75 H 99 09/26/18 04:00 97.5 F 100 18 120/71 97 09/26/18 03:37 104 H Intake/Output (24 Hrs) 09/25/18 09/26/18 09/27/18 05:59 05:59 05:59 Intake Total 1180 630 Output Total 2024 350 Balance -845 280 Intake: Oral (ml) 820 450 IV Infused (ml) 360 180 Diltiazem HCl/D5w 125 ml 360 180 @ Per Protocol IV CONT SHY Rx#:[id number] Output: Urine (ml) 2024 350 Toilet 600 350 Urinal 1425 Other: Weight 94.3 kg 94.8 kg Number of Voids Toilet 3 Urinal 1 Number of Stools Toilet 1 Result Diagrams: 09/26/18 03:50 09/26/18 03:50 Telemetry: SR - Physical Exam Constitutional: no apparent distress Eyes: PERRL Ears, Nose, Mouth, Throat: moist mucous membranes Cardiovascular: regular rate and rhythm, no murmurs Respiratory: clear to auscultate bilat, no crackles Skin: no rashes, no abrasions Neurologic: AAOx3 Psychiatric: cooperative, interactive ICD10 Worksheet Patient Problems: Problems Problem Status Onset Fever Acute Myelodysplastic syndrome Acute Atrial fibrillation Acute Dehydration Acute
[2018-09-26] MEDS: predniSONE 20 MG TAB PO SCH (09:26)
[2018-09-26] MEDS: TORSEMIDE 20 MG TAB PO SCH (09:28)
[2018-09-26] MEDS: FOLIC ACID 1 MG TAB PO SCH (09:28)
[2018-09-26] MEDS: CYANO/VITAMIN B12 100 MCG TAB PO SCH (09:28)
[2018-09-26] MEDS: FAMOTIDINE 20 MG TAB PO SCH ×2 (09:29→21:55)
[2018-09-26] MEDS: guaiFENesin 600 MG TAB.ER PO SCH ×2 (09:29→21:56)
[2018-09-26] MEDS: METOPROLOL TARTRATE 25 MG TAB PO SCH ×2 (09:29→21:56)
[2018-09-26] MEDS: APIXABAN 5 MG TAB PO SCH ×2 (09:31→21:55)
[2018-09-26] MEDS: POTASSIUM CL 20 MEQ TAB PO SCH (09:31)
[2018-09-26] MEDS: MULTIVITAMINS 1 EACH TAB PO SCH (09:31)
[2018-09-26] MEDS: DILTIAZEM CD 120 MG CAP PO SCH (12:48)
--- NOTE | 2018-09-26 13:58 | ASMTCMCOM ---
CM Note CM Note Notes: CM met with patient. CM gave patient brochure for [facility] services. CM confirmed patients address and PCP and updated [facility] referral. CM completed CAGE. No resources needed at this time. No further CM needs at this time. Plan: [facility] with OT, PT, RN Date Signed: 09/26/2018 01:57 PM Electronically Signed By:Patria Peñaloza
--- NOTE | 2018-09-26 16:06 | HOSPPROG ---
Hospitalist Progress Note Assessment/Plan: DIAGNOSES: * Rapid atrial fibrillation, paroxysmal - rate uncontrolled despite scheduled IV metoprolol, dilt gtt, dig * Acute diastolic CHF with worsening leg edema and abd distention (suspect due to rapid AFib) * Suspect Crohn's is the cause of his colitis based on endoscopy, biopsies pending to rule out ischemic or other cause; notably Humira was not controlling this disease in the outpatient setting * Acute sepsis? Verses tachycardia and low blood pressure from diarrhea and AFib - now resolved * Right lower lobe pneumonia in an immune compromised host, community-acquired; status post treatment seems resolved * Dehydration, resolved * Nonsustained VT on wireless development manager, single episode earlier during this admission * ? 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 * Myelodysplastic syndrome with abnormal cell counts * Anemia, fairly severe hemoglobin 7-8; multifactorial largely due to MDS but worse due to vasculitis and Crohn's * CKD, stable at present * Obstructive sleep apnea PLANS: * Transitioned from IV to PO Diuretics, was on 40 mg IV BID Lasix, switched to home Torsemide 20 mg qd on 09/25 * S/p DCCV DONALD on 09/25 with achievement of NSR however remains tachycardic * Discussed with cardiology this morning, restarted home Metoprolol and added 120 mg PO diltiazem this afternoon, will titrate these medications to achieve improved rate control * Colon biopsy returned with active colitis and crypt abscesses indicating likely Crohn's disease, plan per GI is to continue current dose of prednisone ( 40 mg qd) at time of discharge * Humira discontinued, probably start Remicade for colitis as an outpatient * continue eliquis for AFib stroke prevention * Ativan discontinued (used as sleep aid at home) due to higher risk of falls; will try higher dose of trazodone * PT/OT * Follow blood cell counts closely, consider transfusion for hemoglobin less than 7 as per Hematology recommendation Subjective: Pt reports some LH and dizziness this AM, has improved since Objective: Vital Signs Temp Pulse Resp BP Pulse Ox 36.9 C 101 H 19 111/71 97 09/26/18 15:22 09/26/18 15:22 09/26/18 15:22 09/26/18 15:22 09/26/18 15:22 Laboratory Results 09/26/18 03:50 09/26/18 03:50 09/25/18 09/26/18 09/27/18 05:59 05:59 05:59 Intake Total 1180 630 Output Total 2024 350 750 Balance -845 280 -750 PT 16.1 SEC (12.0-15.0) H 09/25/18 03:25 INR 1.35 (0.83-1.16) H 09/25/18 03:25 - Physical Exam Constitutional: chronically ill appearing Eyes: PERRL Ears, Nose, Mouth, Throat: moist mucous membranes Cardiovascular: regular rate and rhythym, tachycardia Respiratory: no respiratory distress Gastrointestinal: soft, non-tender abdomen Skin: warm Musculoskeletal: full muscle strength Neurologic: AAOx3 Psychiatric: interacting appropriately ICD10 Worksheet Patient Problems: Problems Problem Status Onset Atrial fibrillation Acute Dehydration Acute Fever Acute Myelodysplastic syndrome Acute
[2018-09-26] MEDS: traZODone 100 MG TAB PO SCH (21:55)
[2018-09-27] MEDS: ACETAMINOPHEN 325 MG TAB PO PRN ×2 (00:14→12:42)
[2018-09-27] MEDS: TERAZOSIN HCL 5 MG CAP PO SCH (06:03)
[2018-09-27] MEDS: LEVOTHYROXINE 112 MCG TAB PO SCH (06:03)
[2018-09-27 07:13] VITALS: BP 135/81
[2018-09-27] MEDS: FOLIC ACID 1 MG TAB PO SCH (08:20)
[2018-09-27] MEDS: DILTIAZEM CD 120 MG CAP PO SCH (08:20)
[2018-09-27] MEDS: CYANO/VITAMIN B12 100 MCG TAB PO SCH (08:20)
[2018-09-27] MEDS: predniSONE 20 MG TAB PO SCH (08:21)
[2018-09-27] MEDS: METOPROLOL TARTRATE 25 MG TAB PO SCH (08:21)
[2018-09-27] MEDS: guaiFENesin 600 MG TAB.ER PO SCH (08:22)
[2018-09-27] MEDS: APIXABAN 5 MG TAB PO SCH (08:22)
[2018-09-27] MEDS: MULTIVITAMINS 1 EACH TAB PO SCH (08:22)
[2018-09-27] MEDS: FAMOTIDINE 20 MG TAB PO SCH (08:22)
[2018-09-27] MEDS: POTASSIUM CL 20 MEQ TAB PO SCH (08:22)
--- NOTE | 2018-09-27 11:10 | PDIAF ---
- Diagnosis Diagnosis: A Fib Code Status: Full Code - Medication Management Discharge Medications: electronically signed and located in the Home Medication List. - Orders Services needed: Home Care, Registered Nurse, Physical Therapy, Occupational Therapy Home Care Face to Face: I certify that this patient was under my care and that I had the required [id number] encounter meeting the encounter requirements on the discharge day. My findings support the fact that the patient is homebound as defined in Home Care Face to Face Continued: CMS Chapter 7 Medicare Benefits Manual 30.1.1 , The condition of the patient is such that there exists a normal inability to leave home and consequently, leaving home would require a considerable and taxing effort. Isolation Type: None - Follow Up Care Current Providers and Referrals: Srinath Robertson MD [Medical Doctor] - 10/04/18 1:15 pm Len Granados MD [Primary Care Provider] - As per Instructions
[2018-09-27] MEDS: TORSEMIDE 20 MG TAB PO SCH (11:20)
--- NOTE | 2018-09-27 11:28 | ASMTLACE ---
LACE Length of stay for Answers: 7-13 days current admission Acuity / Level of Answers: Yes Care: Did the patient have an inpatient admission? Comorbidities - select Answers: Any tumor (including all that apply lymphoma or leukemia) Congestive heart failure Mild liver or renal disease Other Notes: afib, BPH, ANNA MARIE # of Emergency department Answers: 1-2 visits in the last 6 months Score: 16 Date Signed: 09/14/2018 03:44 PM Electronically Signed By:Rajani Zamarripa RN
--- NOTE | 2018-09-27 11:31 | ASDISCHSUM ---
Discharge Information Plan Status:Home with Home Health Medically Cleared to Leave:09/27/2018 Discharge Date:09/27/2018 CM D/C Disposition:Home Health Service ADT D/C Disposition: Projected Discharge Date:09/18/2018 11:00 AM Transportation at D/C:Family Discharge Delay Reason: Follow-Up Date:09/18/2018 11:00 AM Discharge Slot: Final Diagnosis: Placement Information Referral Type:*Home Health Care Services Referral ID:[id number] Provider Name:[facility] [address] Address 2: City:[place] Selection Factors: State:[place] Patient Contact Information Contact Name:FRANCIA Relationship: Address:[address] City:[facility] Phone: State/Zip Code:[place] [address] Email: Financial Information Financial Class:Medicare Advantage Plans Primary Plan Desc:[employer] ADV Primary Plan Number:[id number] Secondary Plan Desc: Secondary Plan Number: Assessment Information [facility] CM Progress Note CM Note CM Note Notes: 09/14/2018 Case Management Note Discussed pt during rounds this morning. Pt admitted for dehydration and afib. Brendan present for rounds. Brendan can be reached at [phone]. Pt recently returned from [facility] to [place]. There are therapy evals pending. Case Management d/c poc: to be determined. Case Management to follow. Date Signed: 09/14/2018 03:42 PM Electronically Signed By:Rajani Zamarripa RN LACE FRANCISCA Length of stay for Answers: 7-13 days current admission Acuity / Level of Answers: Yes Care: Did the patient have an inpatient admission? Comorbidities - select Answers: Any tumor (including all that apply lymphoma or leukemia) Congestive heart failure Mild liver or renal disease Other Notes: afib, BPH, ANNA MARIE # of Emergency department Answers: 1-2 visits in the last 6 months Score: 16 Date Signed: 09/14/2018 03:44 PM Electronically Signed By:Rajani Zamarripa RN [facility] CM Progress Note CM Note CM Note Notes: CM met w/ pt and Pavithra for dispo planning. PT is recommending HC. Pavithra reports that pt historically doesn't want HC but CM can set it up. Referral sent to [facility]. [facility] is able to accept. CM confirmed pts phone number and address. CM to follow. Plan: [facility]; PT Date Signed: 09/15/2018 03:43 PM Electronically Signed By:YOSVANY Mcbride [facility] CM Progress Note CM Note CM Note Notes: Pts case discussed in tx rounds. Pt is scheduled to have a colonoscopy and EGD tomorrow at 10:30AM. Pt will d/c home with [facility] PT and RN when medically stable. CM to follow. Plan: [facility]; PT, RN Date Signed: 09/18/2018 11:30 AM Electronically Signed By:YOSVANY Mcbride [facility] CM Progress Note CM Note CM Note Notes: 09/20/2018 Case Management Note Discussed in rounds this morning. Changing medications to address heart rate control. Discussed w/PT who recommends cardiac rehab after home care completed. Left VM with Dr. Granados (pt PCP) senior caregiver Karissa Abdullahi (ext [phone]) requesting follow up appointment and to alert to need for cardiac rehab. Updated BC on the phone. Pt car Cardona can be reached at [phone]. Case Management d/c poc: [facility] RN PT OT Case Management to follow. Date Signed: 09/20/2018 02:08 PM Electronically Signed By:Rajani Zamarripa, RN [facility] CM Progress Note CM Note CM Note Notes: Pts case discussed in tx rounds. Pt is not medically stable to d/c at this time. CM to follow. Plan: [facility]; PT, OT, RN Date Signed: 09/23/2018 12:08 PM Electronically Signed By:YOSVANY Mcbride [facility] CM Progress Note CM Note CM Note Notes: CM met with patient. CM gave patient brochure for [facility] services. CM confirmed patients address and PCP and updated [facility] referral. CM completed CAGE. No resources needed at this time. No further CM needs at this time. Plan: [facility] with OT, PT, RN Date Signed: 09/26/2018 01:57 PM Electronically Signed By:Patria Peñaloza Case Management Discharge Plan Note Case Management Discharge Discharge Order Complete? Answers: Yes Patient to Obtain Answers: via Family Medications Transportation Arranged Answers: Family/Friends Faxed Final Orders Answers: Yes Notes: [facility] Agency/Facility Transfer Answers: Yes Report Printed & Faxed to Receiving Agency Family Notified Answers: Yes Notes: in room Discharge Comments Notes: 09/27/2018 Case Management Note Met w/pt and to sign IM. Notified [facility] of d/c. Faxed final orders. to transport home. Date Signed: 09/27/2018 11:29 AM Electronically Signed By:Rajani Zamarripa RN Intervention Information Intervention Type:*Incorrect Registration Date of Service:09/14/2018 09:30 AM Patient Type:Observation Staff Member:Shannen Montoya Hours: Discipline: Severity: Comment: Intervention Type:*IM-Signed Date of Service:09/27/2018 11:30 AM Patient Type:Inpatient Staff Member:MARY Zamarripa Hillary Hours: Discipline: Severity: Comment:
--- NOTE | 2018-09-27 15:27 | PDDCSUM ---
Discharge Summary Discharge Summary: Date of Admission: 09/13/2018 Date of Discharge: 09/27/2018 Consults: Cardiology, Cardiology Procedures: DONALD DCCV, TTE, Colonoscopy with Biopsy Followup: PCP, Cardiology, GI Hospital Course Problem List: DIAGNOSES: * Rapid atrial fibrillation, paroxysmal - rate uncontrolled despite scheduled IV metoprolol, dilt gtt, dig * Acute diastolic CHF with worsening leg edema and abd distention (suspect due to rapid AFib) * Crohn's Disease based on recent biopsies; notably Humira was not controlling this disease in the outpatient setting * Acute sepsis? Verses tachycardia and low blood pressure from diarrhea and AFib - now resolved * Right lower lobe pneumonia in an immune compromised host, community-acquired; status post treatment seems resolved * Dehydration, resolved * Nonsustained VT on security monitor, single episode earlier during this admission * ? 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 * Myelodysplastic syndrome with abnormal cell counts * Anemia, fairly severe hemoglobin 7-8; multifactorial largely due to MDS but worse due to vasculitis and Crohn's * CKD, stable at present * Obstructive sleep apnea PLANS: * Transitioned from IV to PO Diuretics, was on 40 mg IV BID Lasix, switched to home Torsemide 20 mg qd on 09/25 * S/p DCCV DONALD on 09/25 with achievement of NSR with slightly elevated HR, discharging on Metoprolol 12.5 mg BID and Diltiazem 120 mg, will f/u with Cardiology next week for further evaluation and management * Colon biopsy returned with active colitis and crypt abscesses indicating likely Crohn's disease, plan per GI is to continue current dose of prednisone ( 40 mg qd) at time of discharge * Humira discontinued, probably start Remicade for colitis as an outpatient * continue eliquis for AFib stroke prevention * Ativan discontinued (used as sleep aid at home) due to higher risk of falls Time spent on discharge was >35 minutes with >50% of time spent on patient education and counseling.
== END 2018-09-27 13:16 | disposition home health service (06) | DRG 871 ==
LOC: OBSVTOIN 21:40 → F2W 21:50
PROVIDERS: ADMIT Internal Medicine; ATTEND Internal Medicine
PROC: 30233N1 Transfusion of Nonautologous Red Blood Cells into Peripheral Vein, Percutaneous Approach (ICD-10-PCS; 2018-09-14)
PROC: 0DB68ZX Excision of Stomach, Via Natural or Artificial Opening Endoscopic, Diagnostic (ICD-10-PCS; principal; 2018-09-19 10:45)
PROC: 0DBN8ZX Excision of Sigmoid Colon, Via Natural or Artificial Opening Endoscopic, Diagnostic (ICD-10-PCS; principal; 2018-09-19 10:45)
PROC: 0DB98ZX Excision of Duodenum, Via Natural or Artificial Opening Endoscopic, Diagnostic (ICD-10-PCS; principal; 2018-09-19 10:45)
PROC: 0DBK8ZX Excision of Ascending Colon, Via Natural or Artificial Opening Endoscopic, Diagnostic (ICD-10-PCS; principal; 2018-09-19 10:45)
PROC: 0DBM8ZX Excision of Descending Colon, Via Natural or Artificial Opening Endoscopic, Diagnostic (ICD-10-PCS; principal; 2018-09-19 10:45)
PROC: 0DBP8ZX Excision of Rectum, Via Natural or Artificial Opening Endoscopic, Diagnostic (ICD-10-PCS; principal; 2018-09-19 10:45)
PROC: B245ZZ4 Ultrasonography of Left Heart, Transesophageal (ICD-10-PCS; 2018-09-25)
PROC: 5A2204Z Restoration of Cardiac Rhythm, Single (ICD-10-PCS; 2018-09-25)
DX: A41.9 Sepsis, unspecified organism (principal); I50.31 Acute diastolic (congestive) heart failure; J18.1 Lobar pneumonia, unspecified organism; K50.90 Crohn's disease, unspecified, without complications; I47.2 Ventricular tachycardia; I48.0 Paroxysmal atrial fibrillation; E86.0 Dehydration; B37.9 Candidiasis, unspecified; I27.20 Pulmonary hypertension, unspecified; I77.6 Arteritis, unspecified; D46.9 Myelodysplastic syndrome, unspecified; D64.9 Anemia, unspecified; N18.9 Chronic kidney disease, unspecified; G47.33 Obstructive sleep apnea (adult) (pediatric); K29.50 Unspecified chronic gastritis without bleeding; K64.4 Residual hemorrhoidal skin tags; Z79.01 Long term (current) use of anticoagulants
CPT/HCPCS: 82607-90; 82668-90; 86334-90; 96374; 97116-GP; 97161-GP; 97166-GO; 97530-GO; 97530-GP; 97535-GO; J0461; J0692; J0885; J1160; J1642; J1940; J2370; J2550; J2704; J2920; J3010; J7512; P9016; Q9967

== ENCOUNTER 2018-11-06 13:27 | Day surgery (SDC) | payer OTHER ==
[2018-11-06] MEDS ORDERED: ATROPINE SULFATE 1 MG/10 ML SYR IVP ONE (13:30)
[2018-11-06] MEDS ORDERED: MIDAZOLAM 2 MG/2 ML VIAL IVP ONE (13:30)
[2018-11-06] MEDS ORDERED: NS 500 ML IV ONE (13:30)
[2018-11-06] MEDS ORDERED: fentaNYL 100 MCG/2 ML INJ IVP ONE (13:30)
[2018-11-06] MEDS ORDERED: BENZOCAINE UNIT DOSE SPRAY HURRICAINE MM ONE (13:30)
[2018-11-06 14:29] LABS: INR 1.43 (0.83-1.16); PROTIME(PATIENT) 16.8 SEC (12.0-15.0)
[2018-11-06] MEDS ORDERED: ACETAMINOPHEN 500 MG TAB PO ONE (14:45)
--- NOTE | 2018-11-06 15:59 | PDANEPAE ---
ANE History of Present Illness here for CV ANE Past Medical History - Cardiovascular History Hx Hypertension: No Hx Arrhythmias: Yes Hx Chest Pain: No Hx Coronary Artery / Peripheral Vascular Disease: No Hx CHF / Valvular Disease: Yes Hx Palpitations: No Cardiovascular History Comment: h/o afib, vasculitis, CHF - Pulmonary History Hx COPD: No Hx Asthma/Reactive Airway Disease: No Hx Recent Upper Respiratory Infection: No Hx Oxygen in Use at Home: No Hx Sleep Apnea: Yes - Endocrine History Hx Diabetes: No - Renal History Hx Renal Disorders: No - Liver History Hx Hepatic Disorders: No - Cancer History Hx Cancer: Yes Cancer History Comment: myelodysplastic syndrome - Congenital Disorder History Hx 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 - GI History Hx Gastrointestinal Disorders: Yes Gastrointestinal History Comment: diarrhea weight loss anemia - Chronic Pain History Chronic Pain: No ANE Review of Systems Review of systems is: negative Review of Systems: ANE Patient History - Allergies Allergies/Adverse Reactions: lisinopril [From Zestril] Allergy (Severe, Verified 03/31/17 09:06) Swelling/neck,face,throat codeine Allergy (Verified 03/31/17 09:06) neck swelling minocycline Allergy (Verified 09/13/18 21:36) Other-Enter Comments - Home Medications Home medications: home medication list seen and reviewed Home Medications: Acetaminophen [Tylenol ES 500 mg (*)] 1,000 mg PO Q6 PRN 03/31/17 [Last Taken 12:00] Cyanocobalamin [Vitamin B12 (*)] 100 mcg PO DAILY 03/31/17 [Last Taken 11/05/18 10:00] Metoprolol Tartrate [Lopressor 25 mg (*)] 12.5 mg PO BID 03/31/17 [Last Taken 10:00] Ranitidine HCl [Zantac] 150 mg PO BID 03/31/17 [Last Taken 11/05/18 18:00] Terazosin HCl 10 mg PO DAILY@03/31/17 [Last Taken 11/05/18 10:00] Diphenoxylate HCl/Atrop Sulf [Lomotil Tab (*)] 2 tab PO QID PRN 09/13/18 [Last Taken Unknown] Folic Acid [Folic Acid 1 MG (*)] 1 mg PO DAILY 09/13/18 [Last Taken 11/05/18 10: 00] Herbals/Supplements -Info Only 1 ea PO DAILY 09/13/18 [Last Taken 11/05/18 10:00 ] Levothyroxine [Synthroid 112 mcg (*)] 112 mcg PO DAILY06 09/13/18 [Last Taken 06:00] Multivitamins [Multivitamin (*)] 1 each PO DAILY 09/13/18 [Last Taken 11/05/18 10:00] Flecainide Acetate 100 mg PO BID 11/06/18 [Last Taken 11/06/18 06:00] - NPO status NPO Status: no food or drink >8 hours - Smoking Hx Smoking Status: Former smoker ANE Labs/Vital Signs - Labs Result Diagrams: 11/06/18 14:05 - Vital Signs Vital Signs: reviewed preoperatively; see RN documention for details Height: 183 cm Weight: 96.2 kg ANE Physical Exam - Airway Neck exam: FROM Mallampati Score: Class 1 Mouth exam: normal dental/mouth exam - Pulmonary Pulmonary: no respiratory distress - Cardiovascular Cardiovascular: irregularly irregular - ASA Status ASA Status: III ANE Anesthesia Plan Anesthesia Plan: GA with mask
--- NOTE | 2018-11-06 16:00 | PDGENHP ---
History & Physical Chief Complaint: persistent AFib History of Present Illness: persistent AF, on eliquis 5mg bid without interruption >6 weeks Relevant Physical Exam: A+Ox4, irr irr/tachy, no MRG, CTAB, no focal deficits Cardiorespiratory Assessment: persistent AF -> cardioversion
[2018-11-06] MEDS ORDERED: PROPOFOL 200 MG/20 ML VIAL ONE (16:02)
--- NOTE | 2018-11-06 16:14 | EPPROC ---
Electrophysiology Procedure Note: Date: 11/06/2018 Masticator: Deric Cross MD Procedures: DC cardioversion -[id number] Indications: 78-year-old male with persistent atrial fibrillation, on Eliquis 5 mg twice daily without interruption for greater than 6 weeks Techniques: Following informed consent, the patient was brought to the procedure area in a fasting nonsedated state, in atrial fibrillation rhythm. Defibrillation pads were applied to the chest in an anteroposterior orientation. IV sedation was provided by the anesthesiology service. After ensuring adequate sedation, a single 200 joule biphasic R-wave synchronized transcutaneous shock was delivered, resulting in termination of atrial fibrillation rhythm, and hinduism of sinus rhythm with frequent PACs; no significant sinus pause was observed. The patient tolerated the procedure well. EBL: None Complications: None Assessment: Successful DC cardioversion of persistent atrial fibrillation Plan: Discharge to home, continue Eliquis 5 mg twice daily without interruption for at least 1 month Patient Problems: Problems Problem Status Onset Atrial fibrillation Acute Dehydration Acute Fever Acute Myelodysplastic syndrome Acute
--- NOTE | 2018-11-08 11:57 | CPEKG ---
Test Reason : OPEN Blood Pressure : / mmHG Vent. Rate : 140 BPM Atrial Rate : 170 BPM P-R Int : 148 ms QRS Dur : 095 ms QT Int : 316 ms P-R-T Axes : 000 118 025 degrees QTc Int : 482 ms Atrial fibrillation with rapid V-rate Right axis deviation Low voltage, extremity leads Confirmed by Dennis Martinez ([id number]) on 11/08/2018 11:57:02 AM Referred By: Joey Cross Confirmed By:Dennis Martinez
--- NOTE | 2018-11-08 14:32 | CPEKG ---
Test Reason : OPEN Blood Pressure : / mmHG Vent. Rate : 089 BPM Atrial Rate : 089 BPM P-R Int : 175 ms QRS Dur : 095 ms QT Int : 369 ms P-R-T Axes : 007 113 051 degrees QTc Int : 449 ms Sinus rhythm Atrial premature complexes Right axis deviation Low voltage, extremity leads Confirmed by Dennis Martinez ([id number] on 11/08/2018 2:32:24 PM Referred By: Joey Cross Confirmed By:Dennis Martinez
== END 2018-11-06 17:30 | disposition home or self-care (01) ==
LOC: FCATH 13:27
PROVIDERS: ATTEND Internal Medicine Cardiovascular Disease
PROC: 5A2204Z Restoration of Cardiac Rhythm, Single (ICD-10-PCS; principal; 2018-11-06)
DX: I48.1 Persistent atrial fibrillation (principal); Z79.01 Long term (current) use of anticoagulants; K50.90 Crohn's disease, unspecified, without complications; I77.6 Arteritis, unspecified; C92.90 Myeloid leukemia, unspecified, not having achieved remission; I50.30 Unspecified diastolic (congestive) heart failure; G47.33 Obstructive sleep apnea (adult) (pediatric)
CPT/HCPCS: J2704